=== PATIENT | male | born 1955 | race Caucasian/White ===

== ENCOUNTER 2019-02-24 21:22 | Emergency (ER) | payer OTHER, SELFPAY ==
--- OUTSIDE RECORDS SUMMARY | 2019-02-24 21:26 | XMS REPORT | Clinical Summary ---
:1955 Author Organization [facility] Address [address] [place] [address] Care Team Providers Name Role Phone Asked, No Pcp Primary Care Provider Unavailable Allergies No Known Allergies Medications Medication Sig Dispensed Refills Start Date End Date Status lisinopril Take 10 mg by 0 Active (PRINIVIL,ZESTRIL) mouth daily. 10 mg tablet rosuvastatin Take 10 mg by 0 Active (CRESTOR) 10 MG mouth daily. tablet rosuvastatin Take 10 mg by 0 06/17/2018 Discontinued (CRESTOR) 10 MG mouth daily. tablet lisinopril Take 10 mg by 0 06/17/2018 Discontinued (PRINIVIL,ZESTRIL) mouth daily. 10 mg tablet metoprolol tartrate Take 0.5 30 tablet 0 06/18/2018 07/18/2018 (LOPRESSOR) 25 mg tablets (12.5 tablet mg total) by mouth 2 (two) times a day for 30 days. clopidogrel Take 1 tablet 30 tablet 0 06/19/2018 07/19/2018 (PLAVIX) 75 mg (75 mg total) tablet by mouth daily for 30 days. aspirin 81 mg Chew 1 tablet 30 tablet 0 06/18/2018 07/18/2018 chewable tablet (81 mg total) daily for 30 days. famotidine (PEPCID) Take 1 tablet 30 tablet 0 06/18/2018 07/18/2018 40 MG tablet (40 mg total) by mouth daily for 30 days. Active Problems Problem Noted Date HLD (hyperlipidemia) 06/17/2018 HTN (hypertension) 06/17/2018 Precordial chest pain 06/16/2018 Encounters Date Type Specialty Care Team Description 06/17/2018 Surgery Procedural Koffi Trivedi CV LEFT HEART CATH Cardiology MD [place] LV GRAM WITH CORS [[id number] (CPT)] 06/16/2018 - Emergency Cardiology Rehrer, Gerard Precordial chest 06/18/2018 David DO pain (Primary Dx) Jeet Major MD 06/03/2018 Hospital Encounter Radiology Koffi Trivediness of breath MD Eloy 06/03/2018 Transcribe Orders Access Koffi Trivediness of breath MD Eloy (Primary Dx) after 02/23/2018 Social History Tobacco Use Types Packs/Day Years Used Date Former Smoker Quit: 2013 Smokeless Tobacco: Never Used Alcohol Use Drinks/Week oz/Week Comments No Alcohol Habits Answer Date Recorded How often do you have a drink containing alcohol? Never 06/16/2018 How many drinks containing alcohol do you have on a typical Not asked day when you are drinking? How often do you have six or more drinks on one occasion? Not asked Sex Assigned at Date Recorded Not on file Job Start Date Occupation Industry Not on file Not on file Not on file Travel History Travel Start Travel End No recent travel history available. Last Filed Vital Signs Vital Sign Reading Time Taken Blood Pressure 126/78 06/18/2018 7:53 AM FIRE DISPATCHER Pulse 54 06/18/2018 7:53 AM FIRE DISPATCHER Temperature 36.1 C (97 F) 06/18/2018 7:53 AM FIRE DISPATCHER Respiratory Rate 18 06/18/2018 7:53 AM FIRE DISPATCHER Oxygen Saturation 96% 06/18/2018 7:53 AM FIRE DISPATCHER Inhaled Oxygen Concentration - - Weight 118 kg (261 lb 3 oz) 06/18/2018 6:07 AM FIRE DISPATCHER Height 167.6 cm (5' 6") 06/17/2018 6:36 AM FIRE DISPATCHER Body Mass Index 42.16 06/17/2018 6:36 AM FIRE DISPATCHER Plan of Treatment Health Maintenance Due Date Last Done Comments COLONOSCOPY SCREENING 02/13/2006 SHINGLES VACCINES (#1) 02/13/2006 INFLUENZA VACCINE 02/17/2019 Procedures Procedure Name Priority Date/Time Associated Comments Diagnosis ESTIMATED GFR Routine 06/18/2018 5:07 Results for this AM FIRE DISPATCHER procedure are in the results section. BASIC METABOLIC PANEL Routine 06/18/2018 5:07 Results for this AM FIRE DISPATCHER procedure are in the results section. HC COMPLETE BLD COUNT Routine 06/18/2018 5:07 Results for this W/AUTO DIFF AM FIRE DISPATCHER procedure are in the results section. TROPONIN Timed 06/17/2018 10:35 Results for this AM FIRE DISPATCHER procedure are in the results section. CV LEFT HEART CATH LV Routine 06/17/2018 8:38 GRAM WITH CORS AM FIRE DISPATCHER ACTIVATED CLOTTING TIME Routine 06/17/2018 8:03 Results for this AM FIRE DISPATCHER procedure are in the results section. TROPONIN Routine 06/17/2018 3:40 Results for this AM FIRE DISPATCHER procedure are in the results section. ESTIMATED GFR Routine 06/17/2018 3:40 Results for this AM FIRE DISPATCHER procedure are in the results section. BASIC METABOLIC PANEL Routine 06/17/2018 3:40 Results for this AM FIRE DISPATCHER procedure are in the results section. HC COMPLETE BLD COUNT Routine 06/17/2018 3:40 Results for this W/AUTO DIFF AM FIRE DISPATCHER procedure are in the results section. THYROID STIMULATING Routine 06/17/2018 3:40 Results for this HORMONE AM FIRE DISPATCHER procedure are in the results section. HEMOGLOBIN A1C Routine 06/17/2018 3:40 Results for this AM FIRE DISPATCHER procedure are in the results section. URINE DRUGS OF ABUSE Routine 06/17/2018 3:40 Results for this SCREEN AM FIRE DISPATCHER procedure are in the results section. URINALYSIS SCREEN AND Routine 06/17/2018 3:40 Results for this MICROSCOPY, WITH REFLEX AM FIRE DISPATCHER procedure are in TO CULTURE the results section. LIPID PANEL Routine 06/17/2018 3:40 Results for this AM FIRE DISPATCHER procedure are in the results section. URINE CULTURE Routine 06/17/2018 3:40 Results for this AM FIRE DISPATCHER procedure are in the results section. ECG ED PRELIMINARY Routine 06/16/2018 11:19 Results for this INTERPRETATION PM FIRE DISPATCHER procedure are in the results section. XR CHEST 2 VW STAT 06/16/2018 10:17 Results for this PM FIRE DISPATCHER procedure are in the results section. ESTIMATED GFR STAT 06/16/2018 10:15 Results for this PM FIRE DISPATCHER procedure are in the results section. PROTHROMBIN TIME WITH STAT 06/16/2018 10:15 Results for this INR PM FIRE DISPATCHER procedure are in the results section. PARTIAL THROMBOPLASTIN STAT 06/16/2018 10:15 Results for this TIME (PTT) PM FIRE DISPATCHER procedure are in the results section. B NATRIURETIC PEPTIDE STAT 06/16/2018 10:15 Results for this PM FIRE DISPATCHER procedure are in the results section. TROPONIN STAT 06/16/2018 10:15 Results for this PM FIRE DISPATCHER procedure are in the results section. COMPREHENSIVE METABOLIC STAT 06/16/2018 10:15 Results for this PANEL PM FIRE DISPATCHER procedure are in the results section. HC COMPLETE BLD COUNT STAT 06/16/2018 10:15 Results for this W/AUTO DIFF PM FIRE DISPATCHER procedure are in the results section. ECG 12-LEAD STAT 06/16/2018 9:58 Results for this PM FIRE DISPATCHER procedure are in the results section. XR CHEST 2 VW Routine 06/03/2018 3:51 Shortness of Results for this PM FIRE DISPATCHER breath procedure are in the results section. after 02/23/2018 Results Estimated GFR (06/18/2018 5:07 AM FIRE DISPATCHER)Only the most recent of3 resultswithin the time period is included. Pathologist [facility] Estimated GFR >=90 mL/min/1.73 [facility] Comment: m2 HOSPITAL CatergoryUnitsInterpretation G1 >=90 Normal or high G2 60-89Mildly decreased [id number] to moderately decreased B2x60-35Jomifahwfx to severely decreased G4 15-29Severely decreased G5 <15Kidney failure The eGFR was calculated using the Chronic Kidney Disease Epidemiology Collaboration (CKD-EPI) equation. Interpretation is based on recommendations of the National Kidney Foundation-Kidney Disease Outcomes Quality Initiative (NKF-KDOQI) published in 2014. Specimen Plasma specimen Performing Organization Address City/State/Zipcode Phone Number [facility] DEPARTMENT OF PATHOLOGY AND [address] [place] [address] GENOMIC MEDICINE [address] [address] CBC with platelet and differential (06/18/2018 5:07 AM FIRE DISPATCHER)Only the most recent of3 resultswithin the time period is included. Pathologist [facility] WBC 5.62 4.50 - 11.00 [facility] RBC 3.65 (L) 4.40 - 6.00 [facility] HGB 12.0 (L) 14.0 - 18.0 [facility] gdL [facility] HCT 35.4 (L) 41.0 - 51.0 % [facility] MCV 97.0 82.0 - 100.0 [facility] MCH 32.9 27.0 - 34.0 pg [facility] MCHC 33.9 31.0 - 37.0 [facility] gdL [facility] RDW - SD 46.4 37.0 - 55.0 [facility] MPV 10.6 8.8 - 13.2 fL [facility] Platelet count 159 150 - 400 k/uL [facility] Nucleated RBC 0.00 /100 WBC [facility] Neutrophils 66.1 39.0 - 69.0 % [facility] Lymphocytes 24.0 (L) 25.0 - 45.0 % [facility] Monocytes 6.8 0.0 - 10.0 % [facility] Eosinophils 2.0 0.0 - 5.0 % [facility] Basophils 0.7 0.0 - 1.0 % [facility] Immature granulocytes 0.4Comment: 0.0 - 1.0 % [facility] "[facility] granulocytes" (promyelocytes , myelocytes, metamyelocytes ) Specimen Blood Performing Organization Address City/[facility] Hospital[facility] Phone Number [facility] DEPARTMENT OF PATHOLOGY AND [address] [place] [address] Basic metabolic panel (06/18/2018 5:07 AM FIRE DISPATCHER)Only the most recent of2 resultswithin the time period is included. [facility] Sodium 141 135 - 148 mEq/L [facility] Potassium 4.2 3.5 - 5.0 mEq/L [facility] Chloride 103 98 - 112 mEq/L [facility] CO2 25 24 - 31 mEq/L [facility] Anion gap 13@ANIO 7 - 15 mEq/L [facility] BUN 16 8 - 23 mg/dL [facility] Creatinine 0.88 0.70 - 1.20 mg/dL [facility] Glucose 98 65 - 99 mg/dL [facility] Calcium 9.3 8.8 - 10.2 mg/dL [facility] Specimen Plasma specimen Performing Organization Address City/[facility] Hospitalcode Phone Number [facility] DEPARTMENT OF PATHOLOGY AND [address] [place] [address] Troponin (06/17/2018 10:35 AM FIRE DISPATCHER)Only the most recent of3 resultswithin the time period is included. [facility] Troponin <0.30 0.00 - 0.30 [facility] Comment: ng/mL HOSPITAL 0.30 - 1.49 ng/mlMay indicate increased risk of acute coronary syndrome. >=1.5 ng/mlConsistent with acute myocardial infarction. The diagnostic value of a single normal or non-diagnostic result is questionable.Serial samples at 2-6 hour intervals are required to rule out acute myocardial injury. Specimen Plasma specimen Performing Organization Address City/[facility]/Zipcode Phone Number [facility] DEPARTMENT OF PATHOLOGY AND [address] [place] [phone] [address] Cv bean sprout laborer procedure (06/17/2018 8:38 AM FIRE DISPATCHER) Specimen Narrative Performed At Performing Organization Address [facility]/Zipcode Phone Number [facility] [address] [place] [phone] Activated clotting time (06/17/2018 8:03 AM FIRE DISPATCHER) [facility] Activated clotting 320 (H) 96 - 152 sec [facility] Comment: HOSPITAL Meter ID: [id number] Lead Person: Antonieta Mitchell Specimen Performing Organization Address [facility] Hospitalcoga Phone Number [facility] DEPARTMENT OF PATHOLOGY AND [address] [place] [phone] [address] Urinalysis screen and microscopy, with reflex to culture (06/17/2018 3:40 AM FIRE DISPATCHER) Specimen site Clean catch [facility] Color, UA Yellow [facility] Appearance, UA Clear [facility] Specific gravity, UA 1.023 1.001 - 1.035 [facility] pH, UA 5.0 5.0 - 8.5 [facility] Protein, UA 1+ (A) Negative [facility] Glucose, UA Negative Negative [facility] Ketones, UA Negative Negative [facility] Bilirubin, UA Negative Negative [facility] Blood, UA Negative Negative [facility] Nitrite, UA Negative Negative [facility] Urobilinogen, UA <2.0 <2.0 [facility] Leukocyte esterase, Negative Negative [facility] Epithelial cells, UA 2 /HPF [facility] WBC, UA 3 (H) 0 - 1 /HPF [facility] RBC, UA 2 0 - 5 /HPF [facility] Bacteria, UA None seen None seen [facility] Yeast, UA None seen [facility] Yeast with None seen [facility] pseudohyphae, UA HOSPITAL Specimen Urine Performing Organization Address City/State/Zipcode Phone Number [facility] DEPARTMENT OF PATHOLOGY AND [address] [place] [phone] [place] [phone] Urine drugs of abuse screen (06/17/2018 3:40 AM FIRE DISPATCHER) Amphetamine screen, Negative [facility] urine [facility] Barbiturate screen, Negative [facility] urine [facility] Benzodiazepine Negative [facility] screen, urine [facility] Cannabinoid screen, Negative [facility] urine [facility] Cocaine screen, urine Negative [facility] Methadone metabolite Negative [facility] (EDDP), urine [facility] Opiates screen, urine Negative [facility] Oxycodone screen, Negative [facility] urine [facility] Phencyclidine screen, Negative [facility] urine [facility] Tricyclic screen, Negative [facility] urine Comment: CONFUCIANISM Drug screen minimum concentration of [facility] Hanrozlxddan0375 ng/mL Barbiturates 200 ng/mL Qlcuhwzbwlziecd348 ng/mL Nqlwxor509 ng/mL Fdqrzbpne193 ng/mL Sldvihy358 ng/mL Ukhsgcliw815 ng/mL Phencyclidine 25 ng/mL Oquqivriauih84 ng/mL Wgyyvfppso8354 ng/mL Negative test results indicates presumptive evidence of lack of clinically significant drug concentration in this urine specimen. Positive test results are presumptive evidence of clinically significant drug concentration in this urine specimen. Testing performed for medical purposes only. Specimen Urine Performing Organization Address [facility] Hospital[facility] Phone Number [facility] DEPARTMENT OF PATHOLOGY AND [address] [place] [phone] [place] [phone] Urine culture (06/17/2018 3:40 AM FIRE DISPATCHER) Urine culture SEE COMMENTComment: [facility] Bacteriuria screen HOSPITAL negative. Specimen Performing Organization Address City/[facility]/Zipcode Phone Number [facility] DEPARTMENT OF PATHOLOGY AND [address] [place] [phone] [place] [phone] Thyroid stimulating hormone (06/17/2018 3:40 AM FIRE DISPATCHER) TSH 2.86 0.27 - 4.20 uIU/mL [facility] Specimen Plasma specimen Performing Organization Address City/[facility]/Zipcode Phone Number [facility] DEPARTMENT OF PATHOLOGY AND [address] [place] [phone] [address] Hemoglobin A1c (06/17/2018 3:40 AM FIRE DISPATCHER) Hemoglobin A1C 5.0 4.0 - 5.6 % [facility] Comment: HOSPITAL HbA1c cutoffs for diagnosing diabetes: 4.0% - 5.6%=normal 5.7% - 6.4%=increased risk for diabetes (prediabetes) >=6.5%=diabetes Goals for glycemic control (ADA 2016) < 7.0%Target for non adults with diabetes. More or less stringent targets may be appropriate for individual patients. <7.5% Target for Children and adolescents with type 1 diabetes. Specimen Blood Performing Organization Address City/State/Zipcode Phone Number [facility] DEPARTMENT OF PATHOLOGY AND [address] [place] [phone] [address] Lipid panel (06/17/2018 3:40 AM FIRE DISPATCHER) Cholesterol 162 <200 mg/dL [facility] Triglycerides 541 (H) <150 mg/dL [facility] HDL cholesterol 28 (L) >40 mg/dL [facility] LDL cholesterol 72Comment: Result <100 mg/dL [facility] obtained by direct [employer] LDL measurement [facility] Lipid panel [facility] interpretation Comment: CON[employer]ISM Total Cholesterol (mg/dL) [facility] <200 Desirable 217-436Tsbtzkcqdt-yqox >=240High Triglycerides (mg/dL) <150 Normal 045-202Qseqbhvdyn-gdhy 200-499High >=500Very high HDL Cholesterol (mg/dL) <40Low (male) <40Low (female) LDL Cholesterol (mg/dL) <100 Optimal 100-129Near or above optimal 745-622Qjwluqxqvd-dyjc 160-189High >=190Very high Risk Catergories that modify LDL goals. Risk CatergoriesLDL goal (mg/dL) CHD and CHD risk equivalent<100 (10-year risk >20%) Multiple (2+) risk factors <130 (10-year risk=<20%) 0-1 risk factors <160 (<10-year risk) Defining levels of lipids in metabolic syndrome Triglycerides>=150 mg/dL HDL Cholesterol Men<40 mg/dL Women<40 mg/dL Non-HDL cholesterol is a second target for therapy in persons with high triglycerides (>=200 mg/dL) Specimen Plasma specimen Performing Organization Address City/[facility]/Zipcode Phone Number [facility] DEPARTMENT OF PATHOLOGY AND [address] [place] [address] GENOMIC MEDICINE [facility] [address] [place] [address] ECG ED Preliminary Interpretation - Not an Order (06/16/2018 11:19 PM FIRE DISPATCHER) Narrative Performed At Gerard Crowder DO 06/17/2018 12:53 AM ECG ED Preliminary Interpretation - Not an Order Performed by: Gerard Crowder DO Authorized by: Gerard Crowder DO ECG reviewed by ED Physician in the absence of a car conditioner: yes Previous ECG: Previous ECG:Compared to current Comparison ECG info:Changes since EKG done July 2014. Similarity:Changes noted Interpretation: Interpretation: abnormal Rate: ECG rate:72 ECG rate assessment: normal Rhythm: Rhythm: sinus rhythm QRS: QRS axis:Normal QRS intervals:Wide Conduction: Conduction: abnormal Abnormal conduction: complete RBBB, LAFB and bifascicular block ST segments: ST segments:Normal T waves: T waves: non-specific Q waves: Q waves:V1 XR Chest 2 Vw (06/16/2018 10:17 PM FIRE DISPATCHER)Only the most recent of2 resultswithin the time period is included. Specimen Narrative Performed At EXAMINATION:XR CHEST 2 VW [facility] CLINICAL HISTORY:Chest pain or SOBpleurisy or effusion suspected COMPARISON:June 03, 2018 IMPRESSION: 1.Heart size within normal limits. 2.There is some volume loss of the lung bases. 3.No consolidation or effusion is seen. [id number] Procedure Note [facility], Radiology Results Incoming - 06/16/2018 10:23 PM FIRE DISPATCHER EXAMINATION: XR CHEST 2 VW CLINICAL HISTORY: Chest pain or SOB pleurisy or effusion suspected COMPARISON: June 03, 2018 IMPRESSION: 1. Heart size within normal limits. 2. There is some volume loss of the lung bases. 3. No consolidation or effusion is seen. [id number] Performing Organization Address City/[facility]/Zipcode Phone Number [facility] [address] [place] [address] Partial thromboplastin time, activated (06/16/2018 10:15 PM FIRE DISPATCHER) Pathologist [facility] PTT 30.6 23.0 - 36.0 [facility] Comment: [facility] PTT therapeutic range for unfractionated heparin is 61.0-112.0 seconds which corresponds to Anti-Xa 0.3-0.7 U/ml. Specimen Blood Performing Organization Address City/State/Zipcode Phone Number [facility] DEPARTMENT OF PATHOLOGY AND [address] [place] [phone] Prothrombin time with INR (06/16/2018 10:15 PM FIRE DISPATCHER) Pathologist [facility] Prothrombin time 12.6 11.5 - 14.5 [facility] INR 1.0 [facility] Comment: CONFUCIANISM [facility] International Normalized Ratio (INR) is a therapeutic HOSPITAL monitoring tool for patients who are stable on oral anticoagulant therapy. An INR of 2.0-3.0 is suggested for deep vein thrombosis/pulmonary embolism. Specimen Blood Performing Organization Address City/[facility] Phone Number [facility] DEPARTMENT OF PATHOLOGY AND [address] [place] [address] B natriuretic peptide (06/16/2018 10:15 PM FIRE DISPATCHER) Pathologist [facility] BNP 18 0 - 100 pg/mL [facility] Specimen Blood Performing Organization Address City/[facility] Phone Number [facility] DEPARTMENT OF PATHOLOGY AND [address] [place] [phone] Comprehensive metabolic panel (06/16/2018 10:15 PM FIRE DISPATCHER) [facility] Sodium 144 135 - 148 [facility] mEq/L [facility] Potassium 4.0 3.5 - 5.0 [facility] mEq/L [facility] Chloride 104 98 - 112 mEq/L [facility] CO2 29 24 - 31 mEq/L [facility] Anion gap 11@ANIO 7 - 15 mEq/L [facility] BUN 19 8 - 23 mg/dL [facility] Creatinine 1.05 0.70 - 1.20 [facility] mg/dL HOSPITAL Glucose 92 65 - 99 mg/dL [facility] Calcium 9.9 8.8 - 10.2 [facility] mg/dL HOSPITAL Protein 7.5 6.3 - 8.3 g/dL [facility] Comment: HOSPITAL 4.6-7.0 g/dL 1 week 4.4-7.6 g/dL 7 months-1year5.1-7.3 g/dL 1-2 years5.6-7.5 g/dL >3 years6.0-8.0 g/dL 18-150 6.3-8.3 g/dL Albumin 3.6 3.5 - 5.0 g/dL [facility] A/G ratio 0.9 0.7 - 3.8 [facility] Alkaline phosphatase 55 40 - 129 U/L [facility] AST 25 10 - 50 U/L [facility] ALT 29 5 - 50 U/L [facility] Total bilirubin 0.4 0.0 - 1.2 [facility] mg/dL [facility] Specimen Plasma specimen Performing Organization Address City/State/[facility] Hospitalcode Phone Number [facility] DEPARTMENT OF PATHOLOGY AND [address] [place] [address] GENOMIC MEDICINE [facility] [address] [place] [address] ECG 12 lead (06/16/2018 9:58 PM FIRE DISPATCHER) Ventricular rate 72 [facility] Atrial rate 72 [facility] MD interval 166 [facility] QRSD interval 144 [facility] QT interval 430 [facility] QTC interval 470 [facility] P axis 1 47 [facility] QRS axis 1 -69 [facility] T wave axis 15 [facility] EKG impression Normal sinus rhythm-Right bundle branch block-Left anterior fascicular block-^^^ Bifascicular block ^^^-Inferior infarct , age undetermined- Abnormal ECG-In automated comparison with ECG of 25-JUL-2014 0 [facility] MUSE 7:43,-(RBBB and left anterior fascicular block) is now present-Inferior infarct is now present- Specimen Narrative Performed At Performing Organization Address City/State/[facility] Hospitalcode Phone Number [facility] [address] [place] [address] after 02/23/2018 Insurance Payer Benefit Plan / Subscriber ID Effective Dates Phone Address Type [facility] [employer] [facility] xxxxxxxxxxxx 2017-[employer] CHOICE EXCHANGE EXCHANGE t [employer] Advance Directives Patient has advance care planning documents on file. For more information, please contact:Barrett Ely[address] [place] [phone]
--- NOTE | 2019-02-24 21:55 | ER ---
Nurse's Notes [facility] Name: Duke Leon Age: 64 yrs Sex: Male : 1955 Arrival Date: 02/24/2019 Time: 21:26 Bed 23 Private MD: Diagnosis: Zoster [herpes zoster] Presentation: 02/24 21:30 Presenting complaint: Patient states: Rash to left arm, for 3 days. Transition of care: aj patient was not received from another setting of care. Onset of symptoms was February 21, 2019. Risk Assessment: Do you want to hurt yourself or someone else? Patient reports no desire to harm self or others. Initial Sepsis Screen: Does the patient meet any 2 criteria? No. Patient's initial sepsis screen is negative. Does the patient have a suspected source of infection? No. Patient's initial sepsis screen is negative. Care prior to arrival: None. 21:30 Method Of Arrival: Ambulatory 21:30 Acuity: NATALIE 4 aj Triage Assessment: 21:31 General: Appears in no apparent distress. comfortable, Behavior is calm, cooperative, aj appropriate for age. Pain: Complains of pain in left arm. Neuro: Level of Consciousness is awake, alert, obeys commands, Oriented to person, place, time, situation, Appropriate for age. Respiratory: Airway is patent Respiratory effort is even, unlabored, Respiratory pattern is regular, symmetrical. Derm: Skin is intact, is healthy with good turgor, Skin is pink, warm \T\ dry. normal, Rash noted that is vesicular, on left arm. Historical: - Allergies: 21:31 No Known Allergies; aj - Immunization history:: Adult Immunizations up to date. - Social history:: Smoking status: Patient/guardian denies using tobacco. - Ebola Screening: : No symptoms or risks identified at this time. Screenin:40 Abuse screen: Denies threats or abuse. Denies injuries from another. Nutritional ca1 screening: No deficits noted. Tuberculosis screening: No symptoms or risk factors identified. Fall Risk None identified. Assessment: 21:40 General: Appears in no apparent distress. comfortable, Behavior is calm, cooperative, ca1 appropriate for age. Pain: Complains of pain in left arm Pain does not radiate. Pain currently is 8 out of 10 on a pain scale. Quality of pain is described as burning. Neuro: Level of Consciousness is awake, alert, obeys commands, Oriented to person, place, time, situation, Appropriate for age. Derm: Skin is intact, is healthy with good turgor, Skin is pink, warm \T\ dry. Derm: Rash noted that is macular. Musculoskeletal: Circulation, motion, and sensation intact. Capillary refill < 3 seconds, Range of motion: intact in all extremities. Vital Signs: 21:31 BP 142 / 68; Pulse 86; Resp 16; Temp 97.9; Pulse Ox 96% on R/A; Weight 124.74 kg; aj Height 5 ft. 6 in. (167.64 cm); 21:31 Body Mass Index 44.39 (124.74 kg, 167.64 cm) aj ED Course: 21:26 Patient arrived in ED. am2 21:31 Triage completed. aj 21:31 Arm band placed on left wrist. Patient placed in an exam room. aj 21:37 Carrie Champagne RN is Primary Nurse. ca1 21:38 Mario Tinajero MD is Attending Physician. ps1 21:40 Patient has correct armband on for positive identification. Call light in reach. Side ca1 rails up X 1. Pulse ox on. NIBP on. Warm blanket given. 21:40 No provider procedures requiring assistance completed. ca1 22:15 Patient did not have IV access during this emergency room visit. ca1 Administered Medications: 22:14 Drug: [place] 10 mg-325 mg 1 tabs {Note: RASS - 0.} Route: PO; ca1 22:14 Follow up: Response: Medication administered at discharge.; RASS: Alert and Calm (0) ca1 Outcome: 21:54 Discharge ordered by . ps1 22:15 Discharged to home ambulatory, with significant other. ca1 22:15 Condition: stable 22:15 Discharge instructions given to patient, Instructed on discharge instructions, follow up and referral plans. medication usage, Demonstrated understanding of instructions, follow-up care, medications, Prescriptions given X 3. 22:17 Patient left the ED. ca1 Signatures: Yumiko Caro, RN Yumiko Carlisle am2 Mario Tinajero MD MD ps1 Carrie Champagne RN RN ca1
--- NOTE | 2019-02-24 21:55 | EDPHYS ---
Physician Documentation [facility] Name: Duke Leon Age: 64 yrs Sex: Male : 1955 Arrival Date: 02/24/2019 Time: 21:26 Bed 23 Private MD: ED Physician Mario Tinajero HPI: 02/24 21:49 This 64 yrs old Male presents to ER via Ambulatory with complaints of Rash - ps1 on arm. 21:49 patient has an obvious shingles rash on left arms started a couple of days ago. Also ps1 states that he has pain in his left ear. Pain is rated as moderate. Not immunocompromised otherwise. No fever. No change in vision or obvious lesions on the face, neck, or ear. Rash is vesicular and following a dermatomal pattern over the shoulder and left arm. . Historical: - Allergies: 21:31 No Known Allergies; aj - Immunization history:: Adult Immunizations up to date. - Social history:: Smoking status: Patient/guardian denies using tobacco. - Ebola Screening: : No symptoms or risks identified at this time. ROS: 21:49 Constitutional: Negative for fever, chills, and weight loss, Eyes: Negative for injury, ps1 pain, redness, and discharge, Cardiovascular: Negative for chest pain, palpitations, and edema, Respiratory: Negative for shortness of breath, cough, wheezing, and pleuritic chest pain, Abdomen/GI: Negative for abdominal pain, nausea, vomiting, diarrhea, and constipation, MS/Extremity: Negative for injury and deformity, Neuro: Negative for headache, weakness, numbness, tingling, and seizure. 21:49 ENT: Positive for ear pain. 21:49 Skin: Positive for rash. Exam: 21:49 Constitutional: This is a well developed, well nourished patient who is awake, alert, ps1 and in no acute distress. Head/Face: Normocephalic, atraumatic. Eyes: Pupils equal round and reactive to light, extra-ocular motions intact. Lids and lashes normal. Conjunctiva and sclera are non-icteric and not injected. ENT: Nares patent. No nasal discharge, no septal abnormalities noted. Tympanic membranes are normal and external auditory canals are clear. Oropharynx with no redness, swelling, or masses, exudates, or evidence of obstruction, uvula midline. Mucous membranes moist. Cardiovascular: Regular rate and rhythm. No gallops, murmurs, or rubs. Normal PMI, no JVD. No pulse deficits. Respiratory: Lungs have equal breath sounds bilaterally, clear to auscultation and percussion. No rales, rhonchi or wheezes noted. No increased work of breathing, no retractions or nasal flaring. Abdomen/GI: Soft, non-tender, with normal bowel sounds. No distension or tympany. No guarding or rebound. No evidence of tenderness throughout. MS/ Extremity: Pulses equal, no cyanosis. Neurovascular intact. Full, normal range of motion. 21:49 Skin: Appearance: normal except for affected area, rash a moderate rash is noted, zoster, on the left arm, No lesions on neck or obvious on visualization of ear canal. . Vital Signs: 21:31 BP 142 / 68; Pulse 86; Resp 16; Temp 97.9; Pulse Ox 96% on R/A; Weight 124.74 kg; aj Height 5 ft. 6 in. (167.64 cm); 21:31 Body Mass Index 44.39 (124.74 kg, 167.64 cm) aj MDM: 21:46 Patient medically screened. ps1 21:49 Data reviewed: vital signs, nurses notes, and as a result, I will discharge patient. ps1 Counseling: I had a detailed discussion with the patient and/or guardian regarding: the historical points, exam findings, and any diagnostic results supporting the discharge/admit diagnosis, the need for outpatient follow up, to return to the emergency department if symptoms worsen or persist or if there are any questions or concerns that arise at home. Administered Medications: 22:14 Drug: [place] 10 mg-325 mg 1 tabs {Note: RASS - 0.} Route: PO; ca1 22:14 Follow up: Response: Medication administered at discharge.; RASS: Alert and Calm (0) ca1 Disposition: 02/24/19 21:54 Discharged to Home. Impression: Zoster [herpes zoster]. - Condition is Stable. - Discharge Instructions: Shingles. - Prescriptions for lidocaine 5 % Topical adhesive patch,medicated - apply 1 patch by TRANSDERMAL route once daily; 5 Each. Tylenol- Codeine #3 300-30 mg Oral Tablet - take 2 tablet by ORAL route every 6 hours As needed; 30 tablet. Zofran 4 mg Oral Tablet - take 1 tablet by ORAL route every 12 hours As needed; 20 tablet. Acyclovir 800 mg Oral Tablet - take 1 tablet by ORAL route 5 times per day for 10 days; 50 tablet. - Medication Reconciliation Form, Thank You Letter, Antibiotic Education, Prescription Opioid Use form. - Follow up: Emergency Department; When: As needed; Reason: Fever > 102 F, Worsening of condition. Follow up: Private Physician; When: 48 Hours; Reason: Continuance of care, Re-evaluation by your physician. - Problem is new. - Symptoms are unchanged. Signatures: Yumiko Caro RN RN aj Mario Tinajero MD MD ps1 Carrie Champagne RN RN ca1 Corrections: (The following items were deleted from the chart) 22:17 21:54 02/24/2019 21:54 Discharged to Home. Impression: Zoster [herpes zoster]. ca1 Condition is Stable. Forms are Medication Reconciliation Form, Thank You Letter, Antibiotic Education, Prescription Opioid Use. Follow up: Emergency Department; When: As needed; Reason: Fever > 102 F, Worsening of condition. Follow up: Private Physician; When: 48 Hours; Reason: Continuance of care, Re-evaluation by your physician. Problem is new. Symptoms are unchanged. ps1
[2019-02-24] MEDS ORDERED: HYDROCODONE/APAP 10/325 TAB ONE (22:11)
[2019-02-24 22:50] VITALS: BP 142/68; TEMP 97.9; O2SAT 96
== END 2019-02-24 22:17 | disposition home or self-care (01) ==
LOC: ER 21:22
DX: B02.9 Zoster without complications (principal)
CPT/HCPCS: 99283

== ENCOUNTER 2019-03-07 13:22 | Emergency (ER) | payer OTHER, SELFPAY ==
--- OUTSIDE RECORDS SUMMARY | 2019-03-07 13:25 | XMS REPORT | Clinical Summary ---
:1955 Author Organization [facility] Address [address] [place] [address] Care Team Providers Name Role Phone Asked, No Pcp Primary Care Provider Unavailable Allergies No Known Allergies Medications Medication Sig Dispensed Refills Start Date End Date Status lisinopril Take 10 mg by 0 Active (PRINIVIL,ZESTRIL) mouth daily. 10 mg tablet rosuvastatin Take 10 mg by 0 Active (CRESTOR) 10 MG mouth daily. tablet rosuvastatin Take 10 mg by 0 Discontinued (CRESTOR) 10 MG mouth daily. 8 (Patient tablet Discharge) lisinopril Take 10 mg by 0 Discontinued (PRINIVIL,ZESTRIL) mouth daily. 8 (Patient 10 mg tablet Discharge) metoprolol Take 0.5 30 tablet 0 06/18/2018 tartrate tablets (12.5 8 (LOPRESSOR) 25 mg mg total) by tablet mouth 2 (two) times a day for 30 days. clopidogrel Take 1 tablet 30 tablet 0 06/19/2018 (PLAVIX) 75 mg (75 mg total) 8 tablet by mouth daily for 30 days. aspirin 81 mg Chew 1 tablet 30 tablet 0 06/18/2018 chewable tablet (81 mg total) 8 daily for 30 days. famotidine Take 1 tablet 30 tablet 0 06/18/2018 (PEPCID) 40 MG (40 mg total) 8 tablet by mouth daily for 30 days. Active Problems Problem Noted Date HLD (hyperlipidemia) 06/17/2018 HTN (hypertension) 06/17/2018 Precordial chest pain 06/16/2018 Encounters Date Type Specialty Care Team Description 06/17/2018 Surgery Procedural Koffi Trivedi CV LEFT HEART CATH Cardiology MD Eloy LV GRAM WITH CORS [[id number] (CPT)] 06/16/2018 - Emergency Cardiology Rehrer, Gerard Precordial chest 06/18/2018 DO David pain (Primary Dx) Jeet Major MD 06/03/2018 Hospital Encounter Radiology Koffi Trivediness of breath MD Eloy 06/03/2018 Transcribe Orders Access Koffi Trivedi Shortness of breath MD Eloy (Primary Dx) after 03/06/2018 Social History Tobacco Use Types Packs/Day Years [...] Vital Signs Vital Sign Reading Time Taken Comments Blood Pressure 126/78 06/18/2018 7:53 AM HOUSING PROPERTY MANAGER Pulse 54 06/18/2018 7:53 AM HOUSING PROPERTY MANAGER Temperature 36.1 C (97 F) 06/18/2018 7:53 AM HOUSING PROPERTY MANAGER Respiratory Rate 18 06/18/2018 7:53 AM HOUSING PROPERTY MANAGER Oxygen Saturation 96% 06/18/2018 7:53 AM HOUSING PROPERTY MANAGER Inhaled Oxygen Concentration - - Weight 118 kg (261 lb 3 oz) 06/18/2018 6:07 AM HOUSING PROPERTY MANAGER Height 167.6 cm (5' 6") 06/17/2018 6:36 AM HOUSING PROPERTY MANAGER Body Mass Index 42.16 06/17/2018 6:36 AM HOUSING PROPERTY MANAGER Plan of Treatment Health Maintenance Due Date Last Done Comments COLONOSCOPY SCREENING 02/13/2006 SHINGLES VACCINES (#1) 02/13/2006 INFLUENZA VACCINE 02/17/2019 Procedures Procedure Name Priority Date/Time Associated Comments Diagnosis ESTIMATED GFR Routine 06/18/2018 5:07 Results for this AM HOUSING PROPERTY MANAGER procedure are in the results section. BASIC METABOLIC PANEL Routine 06/18/2018 5:07 Results for this AM HOUSING PROPERTY MANAGER procedure are in the results section. HC COMPLETE BLD COUNT Routine 06/18/2018 5:07 Results for this W/AUTO DIFF AM HOUSING PROPERTY MANAGER procedure are in the results section. TROPONIN Timed 06/17/2018 10:35 Results for this AM HOUSING PROPERTY MANAGER procedure are in the results section. CV LEFT HEART CATH LV Routine 06/17/2018 8:38 GRAM WITH CORS AM HOUSING PROPERTY MANAGER ACTIVATED CLOTTING TIME Routine 06/17/2018 8:03 Results for this AM HOUSING PROPERTY MANAGER procedure are in the results section. TROPONIN Routine 06/17/2018 3:40 Results for this AM HOUSING PROPERTY MANAGER procedure are in the results section. ESTIMATED GFR Routine 06/17/2018 3:40 Results for this AM HOUSING PROPERTY MANAGER procedure are in the results section. BASIC METABOLIC PANEL Routine 06/17/2018 3:40 Results for this AM HOUSING PROPERTY MANAGER procedure are in the results section. HC COMPLETE BLD COUNT Routine 06/17/2018 3:40 Results for this W/AUTO DIFF AM HOUSING PROPERTY MANAGER procedure are in the results section. THYROID STIMULATING Routine 06/17/2018 3:40 Results for this HORMONE AM HOUSING PROPERTY MANAGER procedure are in the results section. HEMOGLOBIN A1C Routine 06/17/2018 3:40 Results for this AM HOUSING PROPERTY MANAGER procedure are in the results section. URINE DRUGS OF ABUSE Routine 06/17/2018 3:40 Results for this SCREEN AM HOUSING PROPERTY MANAGER procedure are in the results section. URINALYSIS SCREEN AND Routine 06/17/2018 3:40 Results for this MICROSCOPY, WITH REFLEX AM HOUSING PROPERTY MANAGER procedure are in TO CULTURE the results section. LIPID PANEL Routine 06/17/2018 3:40 Results for this AM HOUSING PROPERTY MANAGER procedure are in the results section. URINE CULTURE Routine 06/17/2018 3:40 Results for this AM HOUSING PROPERTY MANAGER procedure are in the results section. ECG ED PRELIMINARY Routine 06/16/2018 11:19 Results for this INTERPRETATION PM HOUSING PROPERTY MANAGER procedure are in the results section. XR CHEST 2 VW STAT 06/16/2018 10:17 Results for this PM HOUSING PROPERTY MANAGER procedure are in the results section. ESTIMATED GFR STAT 06/16/2018 10:15 Results for this PM HOUSING PROPERTY MANAGER procedure are in the results section. PROTHROMBIN TIME WITH STAT 06/16/2018 10:15 Results for this INR PM HOUSING PROPERTY MANAGER procedure are in the results section. PARTIAL THROMBOPLASTIN STAT 06/16/2018 10:15 Results for this TIME (PTT) PM HOUSING PROPERTY MANAGER procedure are in the results section. B NATRIURETIC PEPTIDE STAT 06/16/2018 10:15 Results for this PM HOUSING PROPERTY MANAGER procedure are in the results section. TROPONIN STAT 06/16/2018 10:15 Results for this PM HOUSING PROPERTY MANAGER procedure are in the results section. COMPREHENSIVE METABOLIC STAT 06/16/2018 10:15 Results for this PANEL PM HOUSING PROPERTY MANAGER procedure are in the results section. HC COMPLETE BLD COUNT STAT 06/16/2018 10:15 Results for this W/AUTO DIFF PM HOUSING PROPERTY MANAGER procedure are in the results section. ECG 12-LEAD STAT 06/16/2018 9:58 Results for this PM HOUSING PROPERTY MANAGER procedure are in the results section. XR CHEST 2 VW Routine 06/03/2018 3:51 Shortness of Results for this PM HOUSING PROPERTY MANAGER breath procedure are in the results section. after 03/06/2018 Results Estimated GFR (06/18/2018 5:07 AM HOUSING PROPERTY MANAGER)Only the most recent of3 resultswithin the time period is included. [facility] Estimated GFR >=90 mL/min/1.73 [facility] Comment: m2 HOSPITAL CatergoryUnitsInterpretation G1 >=90 Normal or high G2 60-89Mildly decreased [id number] to moderately decreased W9c50-63Rrikuzvdfu to severely decreased G4 15-29Severely decreased G5 <15Kidney failure The eGFR was calculated using the Chronic Kidney Disease Epidemiology Collaboration (CKD-EPI) equation. Interpretation is based on recommendations of the National Kidney Foundation-Kidney Disease Outcomes Quality Initiative (NKF-KDOQI) published in 2014. Specimen Plasma specimen Performing Organization Address City/State/Zipcode Phone Number [facility] DEPARTMENT OF PATHOLOGY AND [address] [place] [address] GENOMIC MED[address] [address] CBC with platelet and differential (06/18/2018 5:07 AM HOUSING PROPERTY MANAGER)Only the most recent of3 resultswithin the time period is included. [facility] WBC 5.62 4.50 - 11.00 [facility] k/[facility] RBC 3.65 (L) 4.40 - 6.00 [facility] HGB 12.0 (L) 14.0 - 18.0 [facility] g/dL [facility] HCT 35.4 (L) 41.0 - 51.0 % [facility] MCV 97.0 82.0 - 100.0 [facility] MCH 32.9 27.0 - 34.0 pg [facility] MCHC 33.9 31.0 - 37.0 [facility] g/dL [facility] RDW - SD 46.4 37.0 - 55.0 fL [facility] MPV 10.6 8.8 - 13.2 fL [facility] Platelet count 159 150 - 400 k/uL [facility] Nucleated RBC 0.00 /100 WBC [facility] Neutrophils 66.1 39.0 - 69.0 % [facility] Lymphocytes 24.0 (L) 25.0 - 45.0 % [facility] Monocytes 6.8 0.0 - 10.0 % [facility] Eosinophils 2.0 0.0 - 5.0 % [facility] Basophils 0.7 0.0 - 1.0 % [facility] Immature granulocytes 0.4Comment: 0.0 - 1.0 % [facility] granulocytes" (promyelocytes , myelocytes, metamyelocytes ) Specimen Blood Performing Organization Address City/[facility] Phone Number [facility] DEPARTMENT OF PATHOLOGY AND [address] [place] [address] Basic metabolic panel (06/18/2018 5:07 AM HOUSING PROPERTY MANAGER)Only the most recent of2 resultswithin the time period is included. Pathologist [facility] Sodium 141 135 - 148 mEq/L [facility] Potassium 4.2 3.5 - 5.0 mEq/L [facility] Chloride 103 98 - 112 mEq/L [facility] CO2 25 24 - 31 mEq/L [facility] Anion gap 13@ANIO 7 - 15 mEq/L [facility] BUN 16 8 - 23 mg/dL [facility] Creatinine 0.88 0.70 - 1.20 mg/dL [facility] Glucose 98 65 - 99 mg/dL [facility] Calcium 9.3 8.8 - 10.2 mg/dL [facility] Specimen Plasma specimen Performing Organization Address City/[facility] Centercode Phone Number [facility] DEPARTMENT OF PATHOLOGY AND [address] [place] [address] Troponin (06/17/2018 10:35 AM HOUSING PROPERTY MANAGER)Only the most recent of3 resultswithin the time period is included. Troponin <0.30 0.00 - 0.30 [facility] Comment: ng/mL HOSPITAL 0.30 - 1.49 ng/mlMay indicate increased risk of acute coronary syndrome. >=1.5 ng/mlConsistent with acute myocardial infarction. The diagnostic value of a single normal or non-diagnostic result is questionable.Serial samples at 2-6 hour intervals are required to rule out acute myocardial injury. Specimen Plasma specimen Performing Organization Address City/State/Zipcode Phone Number [facility] DEPARTMENT OF PATHOLOGY AND [address] [place] [address] [address] Cv lab rep procedure (06/17/2018 8:38 AM HOUSING PROPERTY MANAGER) Specimen Narrative Performed At Performing Organization Address [facility]/Zipcode Phone Number [facility] [address] [place] [address] Activated clotting time (06/17/2018 8:03 AM HOUSING PROPERTY MANAGER) [facility] Activated clotting 320 (H) 96 - 152 sec [facility] Comment: HOSPITAL Meter ID: [id number] [place] Roofer Helper: Antonieta Mitchell Specimen Performing Organization Address [facility] Centercode Phone Number [facility] DEPARTMENT OF PATHOLOGY AND [address] [place] [phone] [address] Urinalysis screen and microscopy, with reflex to culture (06/17/2018 3:40 AM HOUSING PROPERTY MANAGER) Specimen site Clean catch [facility] Color, UA Yellow [facility] Appearance, UA Clear [facility] Specific gravity, UA 1.023 1.001 - 1.035 [facility] pH, UA 5.0 5.0 - 8.5 [facility] Protein, UA 1+ (A) Negative [facility] Glucose, UA Negative Negative [facility] Ketones, UA Negative Negative [facility] Bilirubin, UA Negative Negative [facility] Blood, UA Negative Negative [facility] Nitrite, UA Negative Negative [facility] Urobilinogen, UA <2.0 <2.0 [facility] Leukocyte esterase, Negative Negative [facility] Epithelial cells, UA 2 /HPF [facility] WBC, UA 3 (H) 0 - 1 /HPF [facility] RBC, UA 2 0 - 5 /HPF [facility] Bacteria, UA None seen None seen [facility] Yeast, UA None seen [facility] Yeast with None seen [facility] pseudohyphae, UA HOSPITAL Specimen Urine Performing Organization Address City/[facility]/Zipcode Phone Number [facility] DEPARTMENT OF PATHOLOGY AND [address] [place] [address] Urine drugs of abuse screen (06/17/2018 3:40 AM HOUSING PROPERTY MANAGER) Amphetamine screen, Negative [facility] urine [facility] Barbiturate screen, Negative [facility] urine [facility] Benzodiazepine Negative [facility] [place] screen, urine [facility] Cannabinoid screen, Negative [facility] urine [facility] Cocaine screen, urine Negative [facility] Methadone metabolite Negative [facility] [place] (EDDP), urine [facility] Opiates screen, urine Negative [facility] Oxycodone screen, Negative [facility] urine [facility] Phencyclidine screen, Negative [facility] urine [facility] Tricyclic screen, Negative [facility] urine Comment: [facility] Drug screen minimum concentration of [facility] Gucxyxudubfq3245 ng/mL Barbiturates 200 ng/mL Youcrfowqawxeax764 ng/mL Zdwouvg460 ng/mL Ykyxwlywd036 ng/mL Dbtmuti060 ng/mL Ymktozmrn806 ng/mL Phencyclidine 25 ng/mL Jamprnerbhtw30 ng/mL Jezfxaelsu6087 ng/mL Negative test results indicates presumptive evidence of lack of clinically significant drug concentration in this urine specimen. Positive test results are presumptive evidence of clinically significant drug concentration in this urine specimen. Testing performed for medical purposes only. Specimen Urine Performing Organization Address [facility] Phone Number [facility] DEPARTMENT OF PATHOLOGY AND [address] [place] [phone] [place] [phone] Urine culture (06/17/2018 3:40 AM HOUSING PROPERTY MANAGER) Urine culture SEE COMMENTComment: [facility] Bacteriuria screen HOSPITAL negative. Specimen Performing Organization Address City/[facility] Centercode Phone Number [facility] DEPARTMENT OF PATHOLOGY AND [address] [place] [phone] [place] [address] Thyroid stimulating hormone (06/17/2018 3:40 AM HOUSING PROPERTY MANAGER) TSH 2.86 0.27 - 4.20 uIU/mL [facility] Specimen Plasma specimen Performing Organization Address City/[facility]/Zipcode Phone Number [facility] DEPARTMENT OF PATHOLOGY AND [address] [place] [address] [facility] [address] [place] [address] Hemoglobin A1c (06/17/2018 3:40 AM HOUSING PROPERTY MANAGER) Hemoglobin A1C 5.0 4.0 - 5.6 % [facility] Comment: HOSPITAL HbA1c cutoffs for diagnosing diabetes: 4.0% - 5.6%=normal 5.7% - 6.4%=increased risk for diabetes (prediabetes) >=6.5%=diabetes Goals for glycemic control (ADA 2016) < 7.0%Target for non adults with diabetes. More or less stringent targets may be appropriate for individual patients. <7.5% Target for Children and adolescents with type 1 diabetes. Specimen Blood Performing Organization Address City/State/Zipcode Phone Number [facility] DEPARTMENT OF PATHOLOGY AND [address] [place] [address] [address] Lipid panel (06/17/2018 3:40 AM HOUSING PROPERTY MANAGER) Cholesterol 162 <200 mg/dL [facility] Triglycerides 541 (H) <150 mg/dL [facility] HDL cholesterol 28 (L) >40 mg/dL [facility] LDL cholesterol 72Comment: Result <100 mg/dL [facility] [place] obtained by direct [facility]UZE LDL measurement [facility] Lip[facility] panel [facility] interpretation Comment: [facility] Total Cholesterol (mg/dL) [facility] <200 Desirable 426-734Gjxfirvign-stbx >=240High Triglycerides (mg/dL) <150 Normal 518-462Uupxfvxkmo-ydvh 200-499High >=500Very high HDL Cholesterol (mg/dL) <40Low (male) <40Low (female) LDL Cholesterol (mg/dL) <100 Optimal 100-129Near or above optimal 190-294Vtrtxmqhxw-euxr 160-189High >=190Very high Risk Catergories that modify [...] mg/dL) Specimen Plasma specimen Performing Organization Address City/[facility]oid Phone Number [facility] DEPARTMENT OF PATHOLOGY AND [address] [place] [address] GENOMIC MEDICINE [facility] [address] [place] [address] ECG ED Preliminary Interpretation - Not an Order (06/16/2018 11:19 PM HOUSING PROPERTY MANAGER) Narrative Performed At Gerard Crowder DO 06/17/2018 12:53 AM ECG ED Preliminary Interpretation - Not an Order Performed by: Gerard Crowder DO Authorized by: Gerard Crowder DO ECG reviewed by ED Physician in the absence of a elastic attacher chainstitch: yes Previous ECG: Previous ECG:Compared to current [...] XR Chest 2 Vw (06/16/2018 10:17 PM HOUSING PROPERTY MANAGER)Only the most recent of2 resultswithin the time period is included. Specimen Narrative Performed At EXAMINATION:XR CHEST 2 VW [facility] CLINICAL HISTORY:Chest pain or SOBpleurisy or effusion suspected COMPARISON:June 03, 2018 IMPRESSION: 1.Heart size within normal limits. 2.There is some volume loss of the lung bases. 3.No consolidation or effusion is seen. [id number] Procedure Note Interface, Radiology Results Incoming - 06/16/2018 10:23 PM HOUSING PROPERTY MANAGER EXAMINATION: XR CHEST 2 VW CLINICAL HISTORY: Chest pain or SOB pleurisy or effusion suspected COMPARISON: June 03, 2018 IMPRESSION: 1. Heart size within normal limits. 2. There is some volume loss of the lung bases. 3. No consolidation or effusion is seen. [id number] Performing Organization Address City/[facility] Cent[facility]ode Phone Number [facility] [address] [place] [address] Partial thromboplastin time, activated (06/16/2018 10:15 PM HOUSING PROPERTY MANAGER) Pathologist [facility] PTT 30.6 23.0 - 36.0 [facility] Comment: [facility] PTT therapeutic range for unfractionated heparin is 61.0-112.0 seconds which corresponds to Anti-Xa 0.3-0.7 U/ml. Specimen Blood Performing Organization Address City/State/Zipcode Phone Number [facility] DEPARTMENT OF PATHOLOGY AND [address] [place] [phone] [place] [phone] Prothrombin time with INR (06/16/2018 10:15 PM HOUSING PROPERTY MANAGER) Pathologist [facility] Prothrombin time 12.6 11.5 - 14.5 [facility] INR 1.0 [facility] Comment: [facility] The International Normalized Ratio (INR) is a therapeutic HOSPITAL monitoring tool for patients who are stable on oral anticoagulant therapy. An INR of 2.0-3.0 is suggested for deep vein thrombosis/pulmonary embolism. Specimen Blood Performing Organization Address City/[facility] Cent[facility]ode Phone Number [facility] DEPARTMENT OF PATHOLOGY AND [address] [place] [phone] [address] B natriuretic peptide (06/16/2018 10:15 PM HOUSING PROPERTY MANAGER) Pathologist [facility] BNP 18 0 - 100 pg/mL [facility] Specimen Blood Performing Organization Address City/[facility] Centercode Phone Number [facility] DEPARTMENT OF PATHOLOGY AND [address] [place] [phone] [address] Comprehensive metabolic panel (06/16/2018 10:15 PM HOUSING PROPERTY MANAGER) Pathologist [facility] Sodium 144 135 - 148 [facility] mEq/L [facility] Potassium 4.0 3.5 - 5.0 [facility] mEq/L [facility] Chloride 104 98 - 112 mEq/L [facility] CO2 29 24 - 31 mEq/L [facility] Anion gap 11@ANIO 7 - 15 mEq/L [facility] BUN 19 8 - 23 mg/dL [facility] Creatinine 1.05 0.70 - 1.20 [facility] mg/dL [facility] Glucose 92 65 - 99 mg/dL [facility] Calcium 9.9 8.8 - 10.2 [facility] mg/dL [facility]OSPITAL Protein 7.5 6.3 - 8.3 g/dL [facility] Comment: HOSPITAL Nakina 4.6-7.0 g/dL 1 week 4.4-7.6 g/dL 7 months-1year5.1-7.3 g/dL 1-2 years5.6-7.5 g/dL >3 years6.0-8.0 g/dL 18-150 6.3-8.3 g/dL Albumin 3.6 3.5 - 5.0 g/dL [facility] A/G ratio 0.9 0.7 - 3.8 [facility] Alkaline phosphatase 55 40 - 129 U/L [facility] AST 25 10 - 50 U/L [facility] ALT 29 5 - 50 U/L [facility] Total bilirubin 0.4 0.0 - 1.2 [facility] mg/dL [facility] Specimen Plasma specimen Performing Organization Address [facility] Centercoid Phone Number [facility] DEPARTMENT OF PATHOLOGY AND [address] [place] [address] GENOMIC MEDICINE [address] [address] ECG 12 lead (06/16/2018 9:58 PM HOUSING PROPERTY MANAGER) Ventricular rate 72 [facility] Atrial rate 72 [facility] [place] interval 166 [facility] QRSD interval 144 [...] automated comparison with ECG of 25-JUL-2014 0 [facility] MUSE 7:43,-(RBBB and left anterior fascicular block) is now present-Inferior infarct is now present- Specimen Narrative Performed At Performing Organization Address City/[facility] Centercode Phone Number [facility] [address] [place] [address] after 03/06/2018 Insurance Payer Benefit Plan / Subscriber ID Effective Dates Phone Address Type [facility] Per Vices [facility] xxxxxxxxxxxx 2017-[employer] CHOICE EXCHANGE EXCHANGE t MARK[employer] Advance Directives For more information, please contact: [phone] Type Date Recorded Patient Entry Level Mechanical Engineer Explanation Advance Directives, Living Will and Medical Power of Registered Radiographer
--- NOTE | 2019-03-07 13:58 | EDPHYS ---
Physician Documentation [facility] Name: Duke Leon Age: 64 yrs Sex: Male : 1955 Arrival Date: 03/07/2019 Time: 13:26 Bed 9 Private MD: ED Physician Jamison Jacobson HPI: 03/07 13:59 This 64 yrs old Male presents to ER via Ambulatory with complaints of kb shingles. 14:01 The patient's rash thought to be caused by shingles. The rash is located on the left kb arm. The rash can be described as vesicular. Onset: The symptoms/episode began/occurred 1 week(s) ago. Associated signs and symptoms: Pertinent positives: Pain. Severity of symptoms: At their worst the symptoms were moderate in the emergency department the symptoms are unchanged. The patient has not experienced similar symptoms in the past. The patient has been recently seen by a physician:. Pt reports he came in a week ago and was diagnosed with shingles. States everything is getting better and he is almost out of the prescribed medication, but he was told to follow up so he is here for that. . Historical: - Allergies: 13:40 No Known Allergies; aa5 - PMHx: 13:40 Hypertension; Right eye prosthetic; aa5 - PSHx: 13:40 Hernia repair; aa5 - Immunization history:: Adult Immunizations up to date. - Social history:: Smoking status: Patient/guardian denies using tobacco. - Ebola Screening: : No symptoms or risks identified at this time. ROS: 14:01 Constitutional: Negative for fever, chills, and weight loss, Cardiovascular: Negative kb for chest pain, palpitations, and edema, Respiratory: Negative for shortness of breath, cough, wheezing, and pleuritic chest pain, Abdomen/GI: Negative for abdominal pain, nausea, vomiting, diarrhea, and constipation, Back: Negative for injury and pain, MS/Extremity: Negative for injury and deformity, Neuro: Negative for headache, weakness, numbness, tingling, and seizure. 14:01 Skin: Positive for rash. Exam: 13:59 Constitutional: This is a well developed, well nourished patient who is awake, alert, kb and in no acute distress. Head/Face: Normocephalic, atraumatic. ENT: Nares patent. No nasal discharge, no septal abnormalities noted. Tympanic membranes are normal and external auditory canals are clear. Oropharynx with no redness, swelling, or masses, exudates, or evidence of obstruction, uvula midline. Mucous membranes moist. Neck: Trachea midline, no thyromegaly or masses palpated, and no cervical lymphadenopathy. Supple, full range of motion without nuchal rigidity, or vertebral point tenderness. No Meningismus. Chest/axilla: Normal chest wall appearance and motion. Nontender with no deformity. No lesions are appreciated. Cardiovascular: Regular rate and rhythm with a normal S1 and S2. No gallops, murmurs, or rubs. Normal PMI, no JVD. No pulse deficits. Respiratory: Lungs have equal breath sounds bilaterally, clear to auscultation and percussion. No rales, rhonchi or wheezes noted. No increased work of breathing, no retractions or nasal flaring. MS/ Extremity: Pulses equal, no cyanosis. Neurovascular intact. Full, normal range of motion. Neuro: Awake and alert, GCS 15, oriented to person, place, time, and situation. Cranial nerves II-XII grossly intact. Motor strength 5/5 in all extremities. Sensory grossly intact. Cerebellar exam normal. Normal gait. 13:59 Skin: rash can be described as vesicular, on the left arm. Vital Signs: 13:40 BP 135 / 70; Pulse 65; Resp 16 S; Temp 98.7(TE); Pulse Ox 97% on R/A; Weight 122.47 kg aa5 (R); Height 5 ft. 6 in. (167.64 cm) (R); Pain 0/10; 13:40 Body Mass Index 43.58 (122.47 kg, 167.64 cm) aa5 MDM: 13:44 Patient medically screened. kb 13:54 Data reviewed: vital signs, nurses notes. Data interpreted: Pulse oximetry: on room air kb is 97 %. Interpretation: normal. Counseling: I had a detailed discussion with the patient and/or guardian regarding: the historical points, exam findings, and any diagnostic results supporting the discharge/admit diagnosis, the need for outpatient follow up, a family practitioner, to return to the emergency department if symptoms worsen or persist or if there are any questions or concerns that arise at home. Administered Medications: No medications were administered Disposition: 13:54 Encounter for follow up after being treated for shingles. kb 15:39 Co-signature as Attending Physician, Jamison Jacobson MD. rn Disposition: 03/07/19 13:56 Discharged to Home. Impression: Encounter for screening, unspecified. - Condition is Stable. - Medication Reconciliation Form, Thank You Letter, Antibiotic Education, Prescription Opioid Use form. - Follow up: Emergency Department; When: As needed; Reason: Worsening of condition. Follow up: Private Physician; When: 2 - 3 days; Reason: Recheck today's complaints, Continuance of care, Re-evaluation by your physician. Signatures: Jen Hunt, INTERNATIONAL PROJECT ENGINEER-C INTERNATIONAL PROJECT ENGINEER-Ckb Ainsley Valdes RN RN iw Jamison Jacobson MD MD rn Calderon, Audri, RN RN aa5 Corrections: (The following items were deleted from the chart) 13:59 13:56 03/07/2019 13:56 Discharged to Home. Impression: Encounter for screening, iw unspecified. Condition is Stable. Forms are Medication Reconciliation Form, Thank You Letter, Antibiotic Education, Prescription Opioid Use. Follow up: Emergency Department; When: As needed; Reason: Worsening of condition. Follow up: Private Physician; When: 2 - 3 days; Reason: Recheck today's complaints, Continuance of care, Re-evaluation by your physician. kb
--- NOTE | 2019-03-07 13:58 | ER ---
Nurse's Notes [facility] Name: Duke Leon Age: 64 yrs Sex: Male : 1955 Arrival Date: 03/07/2019 Time: 13:26 Bed 9 Private MD: Diagnosis: Encounter for screening, unspecified Presentation: 03/07 13:38 Presenting complaint: Patient states: "I have shingles and I only have 4 more pills of aa5 the Acyclovir and it is getting better but I couldn't get in to see a doctor for a follow-up so here I am". Pt reports rash has improved. Transition of care: patient was not received from another setting of care. Onset of symptoms was February 2019. Risk Assessment: Do you want to hurt yourself or someone else? Patient reports no desire to harm self or others. Initial Sepsis Screen: Does the patient meet any 2 criteria? No. Patient's initial sepsis screen is negative. Does the patient have a suspected source of infection? No. Patient's initial sepsis screen is negative. Care prior to arrival: None. 13:38 Acuity: NATALIE 5 aa5 13:38 Method Of Arrival: Ambulatory aa5 Historical: - Allergies: 13:40 No Known Allergies; aa5 - PMHx: 13:40 Hypertension; Right eye prosthetic; aa5 - PSHx: 13:40 Hernia repair; aa5 - Immunization history:: Adult Immunizations up to date. - Social history:: Smoking status: Patient/guardian denies using tobacco. - Ebola Screening: : No symptoms or risks identified at this time. Screenin:40 Abuse screen: Denies threats or abuse. Nutritional screening: No deficits noted. aa5 Tuberculosis screening: No symptoms or risk factors identified. Fall Risk None identified. Assessment: 13:40 General: Appears comfortable, Behavior is calm, cooperative. Pain: Complains of pain in aa5 left arm Pain currently is 0 out of 10 on a pain scale. Quality of pain is described as stinging, Is intermittent, Alleviated by medications. Neuro: Level of Consciousness is awake, alert, obeys commands, Oriented to person, place, time, situation. Cardiovascular: Patient's skin is warm and dry. Respiratory: Airway is patent Respiratory effort is even, unlabored, Respiratory pattern is regular, symmetrical. GI: No signs and/or symptoms were reported involving the gastrointestinal system. : No signs and/or symptoms were reported regarding the genitourinary system. EENT: No signs and/or symptoms were reported regarding the EENT system. Derm: Skin is pink, warm \\T\\ dry. Rash noted that is red, raised, on left arm. Musculoskeletal: Range of motion: intact in all extremities. Vital Signs: 13:40 BP 135 / 70; Pulse 65; Resp 16 S; Temp 98.7(TE); Pulse Ox 97% on R/A; Weight 122.47 kg aa5 (R); Height 5 ft. 6 in. (167.64 cm) (R); Pain 0/10; 13:40 Body Mass Index 43.58 (122.47 kg, 167.64 cm) aa5 ED Course: 13:26 Patient arrived in ED. mr 13:38 Arm band placed on. aa5 13:38 Patient has correct armband on for positive identification. Bed in low position. aa5 13:39 Triage completed. aa5 13:41 Salma Roach, RN is Primary Nurse. aa5 13:44 Jen Hunt FNP-C is PHCP. kb 13:44 Jamison Jacobson MD is Attending Physician. kb 13:58 No provider procedures requiring assistance completed. Patient did not have IV access aa5 during this emergency room visit. Administered Medications: No medications were administered Outcome: 13:56 Discharge ordered by MD. kb 13:58 Medical screen evaluation completed per provider. Patient declined treatment. iw 13:59 Following a medical screening exam, the patient was provided information regarding iw alternative care sites and resources available per registration personnel. 13:59 Patient left the ED. iw Signatures: Jen Hunt FNP-C FNP-Nathan Raquel Woodard Ainsley Valdes, RN SUNDAR iw Salma Roach, SUNDAR RN aa5
[2019-03-07 14:05] VITALS: BP 135/70; TEMP 98.7; O2SAT 97
== END 2019-03-07 13:59 | disposition home or self-care (01) ==
LOC: ER 13:22
DX: B02.9 Zoster without complications (principal); Z76.0 Encounter for issue of repeat prescription
CPT/HCPCS: 99281

== ENCOUNTER 2020-02-03 22:07 | Inpatient (IN) | payer OTHER ==
--- OUTSIDE RECORDS SUMMARY | 2020-02-03 22:11 | XMS REPORT | Clinical Summary ---
:1955 Author Organization [facility] Address [address] [place] [address] Care Team Providers Name Role Phone Asked, Pcp Primary Care Provider Unavailable Allergies No Known Allergies Medications Medication Sig Dispensed Refills Start Date End Date Status ferrous sulfate Take 325 mg 0 Ac tive 325 (65 FE) MG by mouth tablet daily. lisinopril Take 1 30 tablet 0 06/09/2019 Active (PRINIVIL) 10 mg tablet (10 tablet mg total) by mouth 2 (two) times a day. pantoprazole Take 1 60 tablet 0 06/09/2019 Active (PROTONIX) 40 MG tablet (40 EC tablet mg total) by mouth 2 (two) times a day. rosuvastatin Take 1 30 tablet 0 06/09/2019 Active (CRESTOR) 10 MG tablet (10 tablet mg total) by mouth nightly. metoprolol Take 0.5 30 tablet 0 06/09/2019 Active succinate XL tablets (TOPROL-XL) 25 mg (12.5 mg 24 hr tablet total) by mouth 2 (two) times a day. tamsulosin Take 1 30 capsule 0 06/09/2019 Active (FLOMAX) 0.4 mg capsule (0.4 capsule mg total) by mouth daily. amLODIPine Take 1 30 tablet 0 06/09/2019 Active (NORVASC) 10 mg tablet (10 tablet mg total) by mouth 2 (two) times a day. lisinopril Take 10 mg 0 Disconti nued (PRINIVIL,ZESTRIL) by mouth 2 9 (Reorder) 10 mg tablet (two) times a day. rosuvastatin Take 10 mg 0 Discon tinued (CRESTOR) 10 MG by mouth 9 (Reo rder) tablet nightly. tamsulosin Take 0.4 mg 0 Discont inued (FLOMAX) 0.4 mg by mouth 9 (Reo rder) capsule daily. clopidogrel Take 75 mg 0 Discont inued (PLAVIX) 75 mg by mouth 9 (Stop Taking at tablet daily. Discharge) metoprolol Take 12.5 mg 0 Discon tinued succinate XL by mouth 2 9 (Reord er) (TOPROL-XL) 25 mg (two) times 24 hr tablet a day. amLODIPine Take 10 mg 0 Disconti nued (NORVASC) 10 mg by mouth 2 9 (Re order) tablet (two) times a day. aspirin (ECOTRIN) Take 81 mg 0 D iscontinued 81 MG enteric by mouth 9 (Stop Taking at coated tablet nightly. Discha rge) pantoprazole Take 1 60 tablet 0 06/09/2019 Discon tinued (PROTONIX) 40 MG tablet (40 9 (R eorder) EC tablet mg total) by mouth 2 (two) times a day. polyethylene Take 17 g by 30 packet 0 06/09/2019 Dis continued glycol (MIRALAX) mouth daily 9 17 gram packet for 30 days. polyethylene Take 17 g by 30 packet 0 06/09/2019 Exp ired glycol (MIRALAX) mouth daily 9 17 gram packet for 30 days. Active Problems Problem Noted Date Gastrointestinal hemorrhage 06/06/2019 Gastrointestinal hemorrhage with melena 06/06/2019 Overview: Added automatically from request for johnson yvan [id number] HLD (hyperlipidemia) 06/17/2018 HTN (hypertension) 06/17/2018 Precordial chest pain 06/16/2018 Encounters Date Type Specialty Care Team Description Surgery Gastroenterology Amaratunge, ESOPHAGOGAS TRODUODENOSCOPY 9 Chirag (EGD) w/ kirt Garcia MD Anesthesia Gastroenterology Jamison Espino, [facility] Rehrer, [place] Gastrointestina l hemorrhage, unspecified gastrointestinal hemorrhage type (Primary Dx); 9 - Encounter David, DO Anemia, unspecified type; Pedrito, Hypotension, un specified hypotension type; 9 Jeet Lyons MD Gastrointesti nal hemorrhage with melena after 02/02/2019 Social History Tobacco Use Types Packs/Day Years [...] six or more drinks on one occasion? No t asked Sex Assigned at Date Recorded Not on file Job Start Date Occupation Industry Not on file Not on file Not on file Travel History Travel Start Travel End No recent travel history available. Last Filed Vital Signs Vital Sign Reading Time Taken Comments Blood Pressure 122/71 06/09/2019 11:59 AM PROCESS MANAGER Pulse 66 06/09/2019 11:59 AM PROCESS MANAGER Temperature 36.8 C (98.2 F) 06/09/2019 11:59 AM PROCESS MANAGER Respiratory Rate 18 06/09/2019 11:59 AM PROCESS MANAGER Oxygen Saturation 95% 06/09/2019 11:59 AM PROCESS MANAGER Inhaled Oxygen Concentration - - Weight 118 kg (260 lb 1.6 oz) 06/07/2019 5:02 AM PROCESS MANAGER Height 170.2 cm (5' 7") 06/07/2019 5:02 AM PROCESS MANAGER Body Mass Index 40.74 06/07/2019 5:02 AM PROCESS MANAGER Plan of Treatment Health Maintenance Due Date Last Done Comments COLONOSCOPY SCREENING 02/13/2006 SHINGLES VACCINES (#1) 02/13/2006 INFLUENZA VACCINE 02/18/2020 Procedures Procedure Name Priority Date/Time Associated Diagnosis Comme nts ESTIMATED GFR Routine 06/09/2019 Results for 5:20 AM PROCESS MANAGER this procedure are in the results section. B NATRIURETIC PEPTIDE Routine 06/09/2019 Result s for 5:20 AM PROCESS MANAGER this procedure are in the results section. BASIC METABOLIC PANEL Routine 06/09/2019 Result s for 5:20 AM PROCESS MANAGER this procedure are in the results section. MAGNESIUM LEVEL Routine 06/09/2019 Results for 5:20 AM PROCESS MANAGER this procedure are in the results section. CBC WITH PLATELET AND Routine 06/09/2019 Result s for DIFFERENTIAL 5:20 AM PROCESS MANAGER this procedure are in the results section. ESOPHAGOGASTRODUODENOSCOPY 06/08/2019 Gastrointestin al (EGD) 2:47 PM PROCESS MANAGER hemorrhage with melena SURGICAL PATHOLOGY REQUEST Routine 06/08/2019 R esults for 9:18 AM PROCESS MANAGER this procedure are in the results section. ESTIMATED GFR Routine 06/08/2019 Results for 4:57 AM PROCESS MANAGER this procedure are in the results section. B NATRIURETIC PEPTIDE Routine 06/08/2019 Result s for 4:57 AM PROCESS MANAGER this procedure are in the results section. BASIC METABOLIC PANEL Routine 06/08/2019 Result s for 4:57 AM PROCESS MANAGER this procedure are in the results section. MAGNESIUM LEVEL Routine 06/08/2019 Results for 4:57 AM PROCESS MANAGER this procedure are in the results section. CBC WITH PLATELET AND Routine 06/08/2019 Result s for DIFFERENTIAL 4:57 AM PROCESS MANAGER this procedure are in the results section. ESTIMATED GFR Routine 06/07/2019 Results for 4:13 AM PROCESS MANAGER this procedure are in the results section. BASIC METABOLIC PANEL Routine 06/07/2019 Result s for 4:13 AM PROCESS MANAGER this procedure are in the results section. MAGNESIUM LEVEL Routine 06/07/2019 Results for 4:13 AM PROCESS MANAGER this procedure are in the results section. HC COMPLETE BLD COUNT W/AUTO Routine 06/07/2019 Results for DIFF 4:13 AM PROCESS MANAGER this procedure are in the results section. TROPONIN Timed 06/07/2019 Results for 4:13 AM PROCESS MANAGER this procedure are in the results section. TRANSFUSE RED BLOOD CELLS Routine 06/07/2019 3:45 AM PROCESS MANAGER TRANSFUSE RED BLOOD CELLS Routine 06/07/2019 1:34 AM PROCESS MANAGER ECG ED PRELIMINARY Routine 06/06/2019 Results f or INTERPRETATION 9:37 PM PROCESS MANAGER this procedure are in the results section. DE CRITICAL CARE, E/M 30-74 Routine 06/06/2019 Results for MINUTES 9:37 PM PROCESS MANAGER this procedure are in the results section. PREPARE RBC Routine 06/06/2019 Results for 7:45 PM PROCESS MANAGER this procedure are in the results section. TYPE AND SCREEN Routine 06/06/2019 Results for 7:45 PM PROCESS MANAGER this procedure are in the results section. TROPONIN Timed 06/06/2019 Results for 7:45 PM PROCESS MANAGER this procedure are in the results section. XR CHEST 2 VW STAT 06/06/2019 Results for 6:36 PM PROCESS MANAGER this procedure are in the results section. SMEAR REVIEW STAT 06/06/2019 Results for 6:14 PM PROCESS MANAGER this procedure are in the results section. ESTIMATED GFR STAT 06/06/2019 Results for 6:14 PM PROCESS MANAGER this procedure are in the results section. PROTHROMBIN TIME WITH INR STAT 06/06/2019 Re sults for 6:14 PM PROCESS MANAGER this procedure are in the results section. PARTIAL THROMBOPLASTIN TIME STAT 06/06/2019 Results for (PTT) 6:14 PM PROCESS MANAGER this procedure are in the results section. B NATRIURETIC PEPTIDE STAT 06/06/2019 Result s for 6:14 PM PROCESS MANAGER this procedure are in the results section. TROPONIN STAT 06/06/2019 Results for 6:14 PM PROCESS MANAGER this procedure are in the results section. COMPREHENSIVE METABOLIC PANEL STAT 06/06/2019 Results for 6:14 PM PROCESS MANAGER this procedure are in the results section. HC COMPLETE BLD COUNT W/AUTO STAT 06/06/2019 Results for DIFF 6:14 PM PROCESS MANAGER this procedure are in the results section. ECG 12-LEAD STAT 06/06/2019 Results for 5:40 PM PROCESS MANAGER this procedure are in the results section. after 02/02/2019 Results Estimated GFR (06/09/2019 5:20 AM PROCESS MANAGER)Only the most recent of4 resultswithin the time period is included. [facility] Estimated GFR 69 mL/min/1.73 [facility] Comment: m2 HOSPITAL Catergory Units Interpretation G1 >=90 Normal or high G2 60-89 Mildly decreased G3a 45-59 Mildly to moderately decreas ed G3b 30-44 Moderately to severely decre ased G4 15-29 Severely decreased G5 <15 Kidney failure The eGFR was calculated using the Chronic Kidney Disea se Epidemiology Collaboration (CKD-EPI) equation. Interpretation is based on recommendations of the National Kidney Foundation-Kidney Disease Outcomes [place] lity Initiative (NKF-KDOQI) published in 2014. Specimen Plasma specimen Performing Organization Address City/State/Zipcode Phone Number [facility] DEPARTMENT OF PATHOLOGY AND [address], [place] [address] GENOM[address] [address] CBC with platelet and differential (06/09/2019 5:20 AM PROCESS MANAGER)Only the most recent of4 resultswithin the time period is included. [facility] WBC 3.92 (L) 4.50 - 11.00 [facility] k/uL [facility] RBC 2.56 (L) 4.40 - 6.00 [facility] m/[facility] HGB 8.0 (L) 14.0 - 18.0 [facility] g/dL [facility] HCT 25.5 (L) 41.0 - 51.0 % [facility] MCV 99.6 82.0 - 100.0 [facility] MCH 31.3 27.0 - 34.0 pg [facility] MCHC 31.4 31.0 - 37.0 [facility] g/dL [facility] RDW - SD 58.3 (H) 37.0 - 55.0 fL [facility] MPV 9.8 8.8 - 13.2 fL [facility] Platelet count 320 150 - 400 k/uL [facility] Nucleated RBC 0.50 /100 WBC [facility] Neutrophils 60.2 39.0 - 69.0 % [facility] Lymphocytes 27.6 25.0 - 45.0 % [facility] Monocytes 8.4 0.0 - 10.0 % [facility] Eosinophils 2.0 0.0 - 5.0 % [facility] Basophils 0.8 0.0 - 1.0 % [facility] Immature granulocytes 1.0Comment: 0.0 - 1.0 % [facility] "Immature [facility] granulocytes" (promyelocytes , myelocytes, metamyelocytes ) Specimen Blood Performing Organization Address City/[facility] Phone Number [facility] DEPARTMENT OF PATHOLOGY AND [address] [place] [address] [place] [phone] B natriuretic peptide (06/09/2019 5:20 AM PROCESS MANAGER)Only the most recent of3 results within the time period is included. Pathologist Sig nature BNP 30 0 - 100 pg/mL [facility] Specimen Blood Performing Organization Address City/[facility] Phone Number [facility] DEPARTMENT OF PATHOLOGY AND [address] [place] [address] [phone] [address] Magnesium level (06/09/2019 5:20 AM PROCESS MANAGER)Only the most recent of3 resultswithin the time period is included. Pathologist Sig nature Magnesium 2.1 1.6 - 2.4 mg/dL [facility] L Specimen Plasma specimen Performing Organization Address [facility] Phone Number [facility] DEPARTMENT OF PATHOLOGY AND [address] [place] [address] [phone] [address] Basic metabolic panel (06/09/2019 5:20 AM PROCESS MANAGER)Only the most recent of3 results within the time period is included. Pathologist Sig nature Sodium 140 135 - 148 mEq/L [facility] L Potassium 4.1 3.5 - 5.0 mEq/L [facility] Chloride 101 98 - 112 mEq/L [facility] CO2 27 24 - 31 mEq/L [facility] Anion gap 12@ANIO 7 - 15 mEq/L [facility] BUN 11 8 - 23 mg/dL [facility] Creatinine 1.13 0.70 - 1.20 mg/dL [facility] Glucose 103 (H) 65 - 99 mg/dL [facility] Calcium 9.0 8.8 - 10.2 mg/dL [facility] Specimen Plasma specimen Performing Organization Address City/[facility] Phone Number [facility] DEPARTMENT OF PATHOLOGY AND [address] [place] [phone] GENOMIC [address] [address] Surgical pathology request (06/08/2019 9:18 AM PROCESS MANAGER) [facility] DEPARTMENT OF PATHOLOGY AND GENOMIC MEDICINE Surgical pathology See link below [facility] DEPARTMENT OF report for PDF Lab PATHOLOGY AND Report GENOMIC MEDICINE Result status This is Final [facility] DEPARTMENT OF Report for PATHOLOGY AND [id number] GENOMIC MEDICINE Specimen Performing Organization Address [facility] Phone Number [facility] DEPARTMENT OF PATHOLOGY AND [address] [place], [place] [phone] 0 GENOMIC MEDICINE Troponin (06/07/2019 4:13 AM PROCESS MANAGER)Only the most recent of3 resultswithin the time period is included. Troponin <0.006 0.000 - 0.040 [facility] Comment: ng/mL [facility] changed methodology eff ective: 11/23/2018 at 10:00 am The new method has a 99th percentile cutoff of 0.040 n g/mL Specimen Plasma specimen Performing Organization Address City/[facility] Phone Number [facility] DEPARTMENT OF PATHOLOGY AND [address] [place] [address] [phone] [address] Transfuse RBC (06/07/2019 3:45 AM PROCESS MANAGER)Only the most recent of2 resultswithin the time period is included.ECG ED Preliminary Interpretation - Not an Order (06/06/2019 9:37 PM PROCESS MANAGER) Narrative Performed At Gerard Crowder DO 06/07/2019 12:03 PM ECG ED Preliminary Interpretation - Not an Order Performed by: Jesus Manuel Camacho NP-C Authorized by: Gerard Crowder DO ECG reviewed by ED Physician in the abse nce of a project control analyst: yes Previous ECG: Previous ECG: Compared to current Interpretation: Interpretation: abnormal Rate: ECG rate: 70 QRS: QRS intervals: Wide Conduction: Conduction: abnormal Abnormal conduction: complete RBBB Other findings: Other findings: LAE CRITICAL CARE (06/06/2019 9:37 PM PROCESS MANAGER) Narrative Performed At Gerard Crowder DO 06/07/2019 12:03 PM Critical Care Performed by: Jesus Manuel Camacho NP-C Authorized by: Gerard Crowder DO Critical care provider statement: Critical care time (minutes): 35 Critical care was necessary to treat or prevent imminent or life-threatening deterioration of the fo llowing conditions: Cardiac failure (GI bleed needing emergent trans fusion ) Critical care was time spent personal ly by me on the following activities: Development of treatment p samm with patient or surrogate, discussions with consultants, evaluation of patient's response to treatment, examination of patient, obtai obed history from patient or surrogate, ordering and performing treatments and inte rventions, ordering and review of laboratory studies, orderi ng and review of radiographic studies, pulse oximetry, re-evaluation of patient's co ndition and review of old charts Abdelrahman 'yes' if you are taking over critical care for this patient from another provider.: no Comments: The patient is critically ill due to but not limited to: ongoing respiratory failure, high risk for respi ratory failure, hemodynamic or metabolic deterioration, altered mental status, and ac [place] organ failure. The patient is requiring frequent assess ment, treatment, life-saving devices, and prevention and management o f life threatening conditions. Prepare RBC, 2 Units (06/06/2019 7:45 PM PROCESS MANAGER) Product name Red Cells AS1 [place] Leukored [facility] Unit number [id number] [facility] Product code [id number] [facility] Dispense status Transfused [facility] Blood expiration date [id number] [facility] Blood type code 9500 [facility] Blood type O NEGATIVE [facility] Compatibility Compatible [facility] Product name Apher Red Cell AS3 [place] #2 LR/IRR [facility] Unit number [id number] [facility] Product code [id number] [facility] Dispense status Transfused [facility] Blood expiration date [id number] [facility] Blood type code 9500 [facility] Blood type O NEGATIVE [facility] Compatibility Compatible [facility] Specimen Blood Performing Organization Address City/[facility] Phone Number [facility] DEPARTMENT OF PATHOLOGY AND [address] [place] [address] [phone] [address] Type and screen (06/06/2019 7:45 PM PROCESS MANAGER) Pathologist Sig nature ABO grouping O [facility] Rh type NEG [facility] Antibody screen (gel) NEG [facility] Specimen Blood Performing Organization Address [facility] Phone Number [facility] DEPARTMENT OF PATHOLOGY AND [address] [place] [address] [phone] [address] XR Chest 2 Vw (06/06/2019 6:36 PM PROCESS MANAGER) Specimen Narrative Performed At EXAMINATION: XR CHEST 2 VW [facility] CLINICAL HISTORY: Chest Pain COMPARISON: June 16 IMPRESSION: The cardiomediastinal silhouette and central vasculatu re are within normal limits. Atherosclerotic calcifications in the t horacic aorta which is tortuous. The lungs are clear. Degenerative changes in the spine. [facility]-[id number] Procedure Note Interface, Radiology Results Incoming - 06/06/2019 6:43 PM PROCESS MANAGER EXAMINATION: XR CHEST 2 VW CLINICAL HISTORY: Chest Pain COMPARISON: June 16 IMPRESSION: The cardiomediastinal silhouette and nida tral vasculature are within normal limits. Atherosclerotic calcifications in the t horacic aorta which is tortuous. The lungs are clear. Degenerative changes in the spine. [facility]-[id number] Performing Organization Address City/[facility]/Zipcode Phone Number [facility] [address] [place] [address] Smear review (06/06/2019 6:14 PM PROCESS MANAGER) Pathologist Sig nature Platelet slide review [place] adequate [facility] Anisocytosis Moderate [facility] Polychromasia Moderate [facility] Spherocytes Occasional [facility] Enlarged platelets Moderate (A) [facility] Specimen Performing Organization Address City/[facility]/Zipcode Phone Number [facility] DEPARTMENT OF PATHOLOGY AND [address] [place] [address] [phone] [address] Partial thromboplastin time, activated (06/06/2019 6:14 PM PROCESS MANAGER) PTT 26.9 23.0 - 36.0 [facility] Comment: [facility] PTT therapeutic range for unfractionated heparin is 61.0-112.0 seconds which corresponds to Anti-Xa 0.3-0.7 U/ml. Specimen Blood Performing Organization Address City/[facility] Phone Number [facility] DEPARTMENT OF PATHOLOGY AND [address] [place] [address] [phone] [address] Prothrombin time with INR (06/06/2019 6:14 PM PROCESS MANAGER) Prothrombin time 13.9 11.5 - 14.5 [facility] INR 1.1 [place] Comment: [facility] Normalized Ratio (INR) is a therapeu [facility] monitoring tool for patients who are stable on oral anticoagulant therapy. An INR of 2.0-3.0 is suggested for deep vein thrombosis/pulmonary embolism. Specimen Blood Performing Organization Address City/[facility] Phone Number [facility] DEPARTMENT OF PATHOLOGY AND [address] [place] [address] [phone] [address] Comprehensive metabolic panel (06/06/2019 6:14 PM PROCESS MANAGER) Sodium 139 135 - 148 [facility] mEq/L [facility] Potassium 4.5 3.5 - 5.0 [facility] mEq/L [facility] Chloride 104 98 - 112 mEq/L [facility] CO2 24 24 - 31 mEq/L [facility] Anion gap 11@ANIO 7 - 15 mEq/L [facility] BUN 27 (H) 8 - 23 mg/dL [facility] Creatinine 1.33 (H) 0.70 - 1.20 [facility] mg/dL [facility] Glucose 114 (H) 65 - 99 mg/dL [facility] Calcium 9.0 8.8 - 10.2 [facility] mg/dL [facility] Protein 6.5 6.3 - 8.3 g/dL [facility] Comment: HOSPITAL Guhzfsq7825.6-7.0 g/dL 1 xxfd4296.4-7.6 g/dL 7 months-1jqpa363.1-7.3 g/dL 1-2 zeckx060.6-7.5 g/dL >3 uckge329.0-8.0 g/dL 18-5710957.3-8.3 g/dL Albumin 3.1 (L) 3.5 - 5.0 g/dL [facility] A/G ratio 0.9 0.7 - 3.8 [facility] Alkaline phosphatase 61 40 - 129 U/L [facility] AST 22 10 - 50 U/L [facility] ALT 30 5 - 50 U/L [facility] Total bilirubin <0.2 0.0 - 1.2 [facility] mg/dL [facility] Specimen Plasma specimen Performing Organization Address City/[facility] Phone Number [facility] DEPARTMENT OF PATHOLOGY AND [address] [place] [phone] GENOMIC MEDICINE [address] [address] ECG 12 lead (06/06/2019 5:40 PM PROCESS MANAGER) Pathologist Sig nature Ventricular rate 70 [facility] Atrial rate 89 [facility] QRSD interval 142 [facility] QT interval 454 [facility] QTC interval 490 [facility] QRS axis 1 -39 [facility] T wave axis 26 [facility] EKG impression Normal sinus rhythm-Left axi s deviation-Right bundle branch block-Inferior infarct , age undetermined-Abnormal ECG-In automated comparison with ECG of 16-JUN-2018 21:58,-Wide QRS rhythm has replaced Sin [facility] MUSE us rhythm- Specimen Narrative Performed At This result has an attachment that is no t available. Performing Organization Address City/[facility] Phone Number [facility] [address] [place] [address] after 02/02/2019 Advance Directives For more information, please contact: [phone] Type Date Recorded Patient Housing Liaison Explanati on Advance Directives, Living 06/06/2019 8:12 PM Will and Medical Power of Toll Test Worker
--- OUTSIDE RECORDS SUMMARY | 2020-02-03 22:12 | XMS REPORT | Continuity of Care Document ---
:1955 Author Organization [facility] t Address [address] [place] [address] Dr. Larson [address] [place] [id number] Care Team Providers Name Role Phone Asked, Pcp Primary Care Physician Unavailable Rehrer David ELIZONDO Attending Clinician Eloy Major MD Attending Clinician Radha Arias MD Attending Clinician [phone] Srinivas FERREIRA Attending Clinician PEDRITO Admitting Clinician Unavailable Payers Payer Name Policy Type Policy Number Effective Date Expiration Date S ource [facility] PPO xxxxxxxxx 2019 [place] [employer] 00:00:00 [facility] xx2019-Pre sentPPO Problems Condition Condition Condition Status Onset Resolution Last Treating Co mments Source Name Details Category Date Date Treatment Clinician Date 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 [place] stinal stinal 1-18 [facility] hemorrhage hemorrhage 00:00: st 00 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 Overview : [place] stinal stinal 1-18 Added Method[facility] hemorrhage hemorrhage 00:00: automatic st with with 00 ally from melena melena request for surgery [id number] HLD HLD Disease Active 2017-07 [place] (hyperlipi (hyperlipi 1-29 Me thodi demia) demia) 00:00: st 00 HTN HTN Disease Active 2017-07 [facility] (hypertens (hypertens 1-29 Me thodi ion) ion) 00:00: st 00 Precordial Precordial Disease Active 2017-07 [place] chest pain chest pain 1-28 Me thodi 00:00: st 00 Allergies, Adverse Reactions, Alerts This patient has no known allergies or adverse reactions. Social History Social Habit Start Date Stop Date Quantity Comments Source History of tobacco Current smoker [facility] [place] [facility] use History [facility] Meth odist Alcohol Std Drinks History [facility] Meth odist Alcohol Binge Sex Assigned At [facility] M ethodist Alcohol intake 2019-06-09 2019-06-09 Current [facility] thodist 00:00:00 00:00:00 non-drinker of alcohol (finding) History SDKY 2018-06-16 2018-06-16 1 [place] od[facility] Alcohol Frequency 00:00:00 00:00:00 Smoking Status Start Date Stop Date Source Former smoker 2019-06-09 00:00:00 2019-06-09 00:00:00 [facility] Medications Ordered Filled Start Stop Current Ordering Indication Dosage Frequency Signature Comments Components Source Medication Medication Date Date Medication? Clinician (SIG) Name Name clopidogrel 2018-07- No 75mg QD Take 75 mg [place] (PLAVIX) 75 08-09 by mouth Met hodi mg tablet 13:20: 00:[address] 26 :00 aspirin 2018-07- No 81mg QD Take 81 mg Linda ston (ECOTRIN) 08-09 by mouth Metho di 81 MG 13:20: 00:[address] enteric 26 :00 coated tablet ferrous 2018-07 Yes 325mg QD Take 325 [place] sulfate 325 1-21 mg by Methodi (65 FE) MG 13:20: mouth st tablet 21 daily. lisinopril 2018-07- No 10mg Q.5D Take 10 mg [place] (PRINIVIL,Z 08-09 by mouth 2 M ethodi ESTRIL) 10 12:30: 00:00 (two) st mg tablet 57 :00 times a day. rosuvastati 2018-07- No 10mg QD Take 10 mg Hyde n (CRESTOR) 08-09 by mouth Met hodi 10 MG 12:30: 00:[address] tablet 57 :00 tamsulosin 2018-07- No .4mg QD Take 0.4 [place] (FLOMAX) 08-09- mg by Methodi 0.4 mg 12:30: 00:[address] capsule 57 :00 daily. metoprolol 2018-07- No 12.5mg Q.5D Take 12.5 [place] succinate 1-21 11-21 mg by Methodi XL 12:30: 00:[address] (TOPROL-XL) 57 :00 (two) 25 mg 24 hr times a tablet day. amLODIPine 2018-07- No 10mg Q.5D Take 10 mg [place] (NORVASC) 1-21 11-21 by mouth 2 Met hodi 10 mg 12:30: 00:00 (two) st tablet 57 :00 times a day. lisinopril 2018-07 Yes 10mg Q.5D Take 1 [place] (PRINIVIL) 1-21 tablet (10 Met hodi 10 mg 00:00: mg total) st tablet 00 by mouth 2 (two) times a day. pantoprazol 2018-07 Yes 40mg Q.5D Take 1 [place] -[place] tablet (40 [facility] (PROTONIX) 00:00: mg total) st 40 MG EC 00 by mouth 2 tablet (two) times a day. rosuvastati 2018-07 Yes 10mg QD Take 1 [place] (CRESTOR) 1-21 tablet (10 Me thodi 10 MG 00:00: mg total) st tablet 00 by mouth nightly. metoprolol 2018-07 Yes 12.5mg Q.5D Take 0.5 [place] succinate 1-21 tablets Methodi XL 00:00: (12.[address] (TOPROL-XL) 00 total) by 25 mg 24 hr mouth 2 tablet (two) times a day. tamsulosin 2018-07 Yes .4mg QD Take 1 [place] (FLOMAX) 1-21 capsule Methodi 0.4 mg 00:00: (0.[address] capsule 00 total) by mouth daily. amLODIPine 2018-07 Yes 10mg Q.5D Take 1 [place] (NORVASC) 1-21 tablet (10 Meth sivan 10 mg 00:00: mg total) st tablet 00 by mouth 2 (two) times a day. polyethylen 2018-07- No 17g QD Take 17 g Hyde e glycol - 12-21 by mouth Method i (MIRALAX) 00:00: 23:[address] 17 gram 00 :00 30 days. packet pantoprazol 2018-07- No 40mg Q.5D Take 1 Linda ston e 08-09 tablet (40 Methodi (PROTONIX) 00:00: 00:00 mg total) s t 40 MG EC 00 :00 by mouth 2 tablet (two) times a day. polyethylen 2018-07- No 17g QD Take 17 g Barrett amor glycol 08-09 by mouth Method i (MIRALAX) 00:00: 00:[address] 17 gram 00 :00 30 days. packet Vital Signs Vital Name Observation Time Observation Value Comments Source Systolic blood 2019-06-09 11:59:40 122 mm[Hg] [place] n [facility] pressure Diastolic blood 2019-06-09 11:59:40 71 mm[Hg] [place] [facility] pressure Heart rate 2019-06-09 11:59:40 66 /min Barrett Ely Body temperature 2019-06-09 11:59:40 36.78 Jossie [place] [facility] Respiratory rate 2019-06-09 11:59:40 18 /min Darian Ely Oxygen saturation in 2019-06-09 11:59:40 95 /min Barrett Ely Arterial blood by Pulse oximetry Body height 2019-06-07 05:02:00 170.2 cm Barrett Ely Body weight 2019-06-07 05:02:00 117.981 kg Barrett Ely BMI 2019-06-07 05:02:00 40.74 kg/m2 Barrett Ely Procedures Procedure Date / Time Performing Source Performed Clinician CBC WITH PLATELET AND DIFFERENTIAL [facility] Chirag Garcia MAGNESIUM LEVEL [facility]06[facility] Chirag Garcia BASIC METABOLIC PANEL 2019-06-[facility] 05:20:00 Chirag Garcia B NATRIURETIC PEPTIDE 2019-06-09 [facility] 05:20:00 Chirag Garcia ESTIMATED GFR 2019-06-[facility] 05:20:00 Chirag Garcia ESOPHAGOGASTRODUODENOSCOPY (EGD) 2019-06-08 [facility] 14:47:00 Chirag Garcia SURGICAL PATHOLOGY REQUEST 2019-06-08 Jeet Major 09:18:00 M. [facility] CBC WITH PLATELET AND DIFFERENTIAL [facility] [place] 04:57:00 [place] [facility] Chamindika MAGNESIUM LEVEL 2019-06-08 [facility], [place] 04:57:00 [place] [facility] Chamindika BASIC METABOLIC PANEL 2019-06-08 [facility] [place] 04:57:00 [place] [facility] Chamindika B NATRIURETIC PEPTIDE 2019-06-08 [facility], [place] 04:57:00 [place] [facility] Chamindika ESTIMATED GFR 2019-06-08 Koffi Trivedi M. [place] 04:57:00 [facility] TROPONIN 2019-06-07 [facility] 04:13:00 M. [facility] HC COMPLETE BLD COUNT W/AUTO DIFF 2019-06-07 [facility] 04:13:00 [place] [facility] Darrionindika MAGNESIUM LEVEL 2019-06-07 [facility], [place] 04:13:00 [facility] [facility]OL[facility] 2019-06-07 [facility] 04:13:00 [place] [facility] Chamindika ESTIMATED GFR 2019-06-07 Pedrito, [facility] 04:13:00 M. [facility] TRANSFUSE RED BLOOD CELLS 2019-06-07 Jeet Major on 03:45:45 M. [facility] TRANSFUSE RED BLOOD CELLS 2019-06-07 Jeet Major on 01:34:12 M. [facility] [place] CRITICAL CARE, E/M 30-74 2019-06-06 Jesus Manuel Camacho [facility] MINUTES 21:37:32 [facility] ECG ED PRELIMINARY INTERPRETATION 2019-06-06 Kory Camacho [facility] 21:37:32 [facility] TROPONIN 2019-06-06 Pedrito, [facility] 19:45:00 M. [facility] TYPE AND SCREEN 2019-06-06 Jesus Manuel Camacho [facility] 19:45:00 [facility] PREPARE RBC 2019-06-06 Jesus Manuel Camacho [facility] 19:45:00 [facility] XR CHEST 2 VW 2019-06-06 Rehrer, [facility] 18:36:45 David [facility] HC COMPLETE BLD COUNT W/AUTO DIFF 2019-06-06 [facility], [facility] 18:14:00 David [facility] COMPREHENSIVE METABOLIC PANEL 2019-06-06 Rehrer, [facility] 18:14:00 David [facility] TROPONIN 2019-06-06 Jeet Major [facility] 18:14:00 M. [facility] B NATRIURETIC PEPTIDE 2019-06-06 [facility], [facility] 18:14:00 David [facility] PARTIAL THROMBOPLASTIN TIME (PTT) 2019-06-06 [facility] 18:14:00 David [facility] PROTHROMBIN TIME WITH INR 2019-06-06 [facility] David [facility] ESTIMATED GFR 2019-06-06 [facility], [facility] 18:14:00 David [facility] SMEAR REVIEW 2019-06-06 [facility] 18:14:00 David [facility] ECG 12-LEAD 2019-06-06 [facility] 17:40:49 David [facility] Plan of Care Planned Activity Planned Date Details Comments Source Future Scheduled 2020-02-18 INFLUENZA VACCINE [place] [facility] Test 00:00:00 [code = INFLUENZA VACCINE] Future Scheduled 2006-02-13 COLONOSCOPY SCREENING [place] [facility] Test 00:00:00 [code = COLONOSCOPY SCREENING] Future Scheduled 2006-02-13 SHINGLES VACCINES [place] [facility] Test 00:00:00 (#1) [code = SHINGLES VACCINES (#1)] Encounters Start End Encounter Admission Attending Care Care Encounter Source Date/Time Date/Time Type Type Clinicians Facility Department ID 2019-06-06 2019-06-09 Inpatient [facility]ITO [facility] [id number] 624 [place] 00:00:00 00:00:00 JEET [address] Results Test Description Test Time Test Comments Results Result Comments Source Surgical pathology request 2019-06-09 20:13:05 Test Item Value Reference Range Interpretation Comme nts Case number (test code = [id number]) [id number] Surgical pathology report (test code = See link below for PDF Lab R eport 1350) Result status (test code = 8964394) This is Final Report for [id number] [id number] [place] MethodkhadijahBasic metabolic [id number] 06:28:40 Test Item Value Reference Range Interpretation Comments Sodium (test code = 2951-2) 140 135- 148 mEq/L Potassium (test code = 2823-3) 4.1 3.5- 5.0 mEq/L Chloride (test code = 5-0) 101 98- 112 mEq/L CO2 (test code = 2027-9) 27 24- 31 mEq/L Anion gap (test code = 95473-6) 12@ANIO 7- 15 mEq/L BUN (test code = 3094-0) 11 mg/dL 8-23 Creatinine (test code = 2160-0) 1.13 mg/dL 0.7-1.2 Glucose (test code = 2345-7) 103 mg/dL 65-99 H Calcium (test code = 00051-4) 9.0 mg/dL 8.8-10.2 Lab Interpretation (test code = Abnormal 26217-2) Barrett MethodistMagnesium [id number] 06:28:39 Test Item Value Reference Range Interpretation Comments Magnesium (test code = 45744-1) 2.1 mg/dL 1.6-2.4 Barrett MethodistEstimated [id number] 06:28:38 Test Item Value Reference Range Interpretation Comments Estimated GFR (test 69 mL/min/1.73 m2 [facility] Units code = 5488) InterpretationG 1 >=90 Normal or highG2 60-89 Mildly yyoggqbdvW8y 45-59 Mildly to mode rately iggqxweplL9h 30-44 Moderately to severely decreasedG4 15-29 Severely decre asedG5 <15 Kidn ey failureThe eGFR was calculated usrudi g the Chronic Kidney Disease Epidemiology Co llaboration (CKD-EPI) equat ion. Interpretation is based on recommendations of the National Kidney Foundation-Kidn ey Disease Outcomes Qualit y Initiative (NKF-KDOQI) pub lished in 2014. Barrett ElyB natriuretic [id number] 06:23:25 Test Item Value Reference Range Interpretation Comments BNP (test code = 52836-0) 30 pg/mL 0-100 Barrett ElyCBC with platelet and [id number] 06:16:50 Test Item Value Reference Range Interpretation Comments WBC (test code = 30109-3) 3.92 4.50- 11.00 k/uL L RBC (test code = 95279-9) 2.56 m/uL 4.4-6 L HGB (test code = 718-7) 8.0 g/dL 14-18 L HCT (test code = 4544-3) 25.5 % 41-51 L MCV (test code = 787-2) 99.6 fL 82-100 MCH (test code = 785-6) 31.3 pg 27-34 MCHC (test code = 786-4) 31.4 g/dL 31-37 RDW - SD (test code = 58.3 fL 37-55 H 11074-3) MPV (test code = 90292-8) 9.8 fL 8.8-13.2 Platelet count (test code 320 150- 400 k/uL = 59618-0) Nucleated RBC (test code 0.50 /100 WBC = 78023-1) Neutrophils (test code = 60.2 % 39-69 81900-5) Lymphocytes (test code = 27.6 % 25-45 27748-0) Monocytes (test code = 8.4 % 0-10 94565-8) Eosinophils (test code = 2.0 % 0-5 48627-4) Basophils (test code = 0.8 % 0-1 75302-8) Immature granulocytes 1.0 % 0-1 "Immat ure (test code = 20535-6) granul ocytes" (promyelocytes, myelocytes, metamyelocytes) Lab Interpretation (test Abnormal code = 24298-9) Barrett Lozada 12 [id number] 21:07:24 Test Item Value Reference Range Interpretation Comments Ventricular rate (test 70 code = 253) Atrial rate (test code 89 = 255) QRSD interval (test 142 code = 260) QT interval (test code 454 = 264) QTC interval (test code 490 = 265) QRS axis 1 (test code = -39 268) T wave axis (test code 26 = 270) EKG impression (test Normal sinus code = 273) rhythm-Left axis deviation-Right bundle branch block-Inferior infarct , age undetermined-Abnormal ECG-In automated comparison with ECG of 16-JUN-2018 21:58,-Wide QRS rhythm has replaced Sinus rhythm- Barrett [id number] 05:04:43 Test Item Value Reference Range Interpretation Comments Troponin (test code = <0.006 0-0.04 [place] [facility] 95931-6) Laboratories ch anged methodology eff ective: 11/23/2018 at 10: 00 amThe new method has a 99th percentile cuto ff of 0.040 ng/mL Barrett ElyPrepare RBC, 2 [id number] 01:49:00 Test Item Value Reference Range Interpretation Comments Product name (test code Apher Red Cell AS3 #2 = 25) LR/IRR Unit number (test code [id number] = [id number]) Product code (test code R3073U52 = 3092) Dispense status (test Transfused code = 24) Blood expiration date (test code = 302) Blood type code (test 9500 code = 308) Blood type (test code = O NEGATIVE 1314) Compatibility (test Compatible code = 6400) [facility] MethodistSmear [id number] 21:48:38 Test Item Value Reference Range Interpretation Comments Platelet slide review (test code [place] adequate = 67652-0) Anisocytosis (test code = 702-1) Moderate Polychromasia (test code = Moderate 01154-7) Spherocytes (test code = 802-9) Occasional Enlarged platelets (test code = Moderate A 36940-2) Lab Interpretation (test code = Abnormal 77872-7) [facility] ED Preliminary Interpretation - Not an [id number] 21:37:32 Test Item Value Reference Range Interpretation Comments CLIFF (test code = CLIFF) Gerard Crowder DO 06/07/2019 12:03 [facility] [place] Preliminary Interpretation - Not an OrderPerformed by: Jesus Manuel Camacho NP-CAuthorized by: Gerard Crowder DO ECG reviewed by ED Physician in the absence of a salon shampoo assistant: yes Previous ECG: Previous ECG: Compared to currentInterpretation: Interpretation: abnormal Rate: ECG rate: 70QRS: QRS intervals: WideConduction: Conduction: abnormal Abnormal conduction: complete RBBB Other findings: Other findings: LAE Lab Interpretation Abnormal (test code = 42589-2) [facility] [id number] 21:37:32Gerard Crowder DO 06/07/2019 12:03 PMCritical CarePerformed by: Jesus Manuel Camacho NP-CAuthorized by: Gerard Crowder DO Critical care provider statement: Critical care time (minutes):35 Critical care was necessary to treat or prevent imminent or life-threatening deterioration of the following conditions: Cardiac failure (GI bleed needing emergent transfusion ) Critical care was time spent personally by me on the following activities: Development of treatment plan with patient or surrogate, discussions with consultants, evaluation of patient's response to treatment, examination of patient, obtaining history from patient or surrogate, ordering and performing treatments and interventions, ordering and review of laboratory studies, ordering and review of radiographic studies, pulse oximetry, re-evaluation of patient's condition and review of old charts Abdelrahman 'yes' if you are taking over critical care for this patient from another provider.: no Comments: The patient is critically ill due to but not limited to: ongoing respiratory failure, high risk for respiratory failure, hemodynamic or metabolic deterioration, altered mental status, and acute organ failure. The patientis requiring frequent assessment, treatment, life-saving devices, and prevention and management of life threatening conditions.Hyde MethodistType and screen 2019-06-06 21:28:00 Test Item Value Reference Range Interpretation Comments ABO grouping (test code = 883-9) O Rh type (test code = 30250-8) NEG Antibody screen (gel) (test code = NEG 890-4) [facility] MethodistComprehensive metabolic [id number] 18:52:47 Test Item Value Reference Range Interpretation Comments Sodium (test code = 139 135- 148 mEq/L 2951-2) Potassium (test code = 4.5 3.5- 5.0 mEq/L 2823-3) Chloride (test code = 104 98- 112 mEq/L 2075-0) CO2 (test code = 8-9) 24 24- 31 mEq/L Anion gap (test code = 11@ANIO 7- 15 mEq/L 97595-4) BUN (test code = 3094-0) 27 mg/dL 8-23 H Creatinine (test code = 1.33 mg/dL 0.7-1.2 H 2160-0) Glucose (test code = 114 mg/dL 65-99 H 2345-7) Calcium (test code = 9.0 mg/dL 8.8-10.2 60298-5) Protein (test code = 6.5 g/dL 6.3-8.3 9994.6-7.0 2885-2) g/dL1 secg2213.4-7.6 g/dL7 months-6meci193 .1- 7.3 g/dL1-2 qyejd503.6-7.5 g/dL>3 sgusm169.0-8.0 g/xQ44-8989513. 3-8 .3 g/dL Albumin (test code = 3.1 g/dL 3.5-5 L 1751-7) A/G ratio (test code = 0.9 0.7-3.8 1759-0) Alkaline phosphatase 61 U/L 40-129 (test code = 6768-6) AST (test code = 1920-8) 22 U/L 10-50 ALT (test code = 1742-6) 30 U/L 5-50 Total bilirubin (test <0.2 0-1.2 code = 1975-2) Lab Interpretation (test Abnormal code = 45352-3) Barrett MethodistPartial thromboplastin time, [id number] 18:48:24 Test Item Value Reference Range Interpretation Comments PTT (test code = 26.9 23.0- 36.0 [place] [address]-6) unfractionated heparin is61.0-112.0 se conds which corresponds to Anti-Xa0.3-0.7 U/ml. Barrett MethodistProthrombin time with [id number] 18:48:20 Test Item Value Reference Range Interpretation Comments Prothrombin time (test 13.9 11.5- 14.5 sec code = 5902-2) INR (test code = 1.1 The Interna tional 42398-9) Normalized Rati o (INR) is a therapeutic m onitoring tool for patien ts who are stable on oral anticoagulant t herapy. An INR of 2.0-3.0 is suggested for d eep vein thrombosis/pulm onary embolism. Barrett MethodistXR Chest 2 [id number] 18:40:01Hm Interface, Radiology Results 06/06/2019 6:43 PM CSTEXAMINATION: XR CHEST 2 VWCLINICAL HISTORY: Chest PainCOMPARISON: June 16IMPRESSION:The cardiomediastinal silhouette and centralvasculature are within normal limits. Atherosclerotic calcifications in the thoracic aorta which is tortuous.The lungs are clear.Degenerative changes in the spine.[facility]-[id number] Adventism
[2020-02-03] MEDS ORDERED: ACETAMINOPHEN 500 MG TAB ONE (22:45)
[2020-02-03] MEDS ORDERED: NA CHLORIDE 0.9% 1,000 ML ONE (22:45)
[2020-02-03 23:05] LABS: Urine Blood 2+ (NEG); Urine Glucose NEGATIVE (NEG); Urine Protein 3+ (NEG); Urine Specific Gravity >1.030 (1.005-1.030)
[2020-02-03 23:18] LABS: Urine Amorphous Sediment 2+ /HPF (NONE SEEN); Urine Bacteria >50 /HPF (NONE SEEN); Urine Culture Reflex Order NOT NEEDED; Urine Mucus 3+ /HPF (NONE SEEN)
[2020-02-03 23:23] LABS: Absolute Lymphocytes (CBC) 0.2 K/uL (0.7-4.9)
[2020-02-03] MEDS ORDERED: NA CHLORIDE 0.9% 3,000 ML ONE (23:29)
[2020-02-03] MEDS ORDERED: IBUPROFEN 400 MG TAB ONE (23:29)
[2020-02-03 23:34] LABS: Basophils % 0.7 % (0-1.3); Hematocrit 33.7 % (39.6-49.0); Lymphocytes % 11.8 % (15.3-44.8); MPV 8.7 fL (7.6-11.3); RBC Red Blood Cell Count 3.62 M/uL (4.33-5.43)
[2020-02-03 23:50] LABS: Blood Morphology Comment NOT SEEN (NOT SEEN); Platelet Estimate ADEQ; Platelets, Giant FEW
[2020-02-04 00:01] LABS: Albumin 3.3 g/dL (3.4-5.0); Bilirubin Direct 0.4 mg/dL (0-0.2); Bilirubin Total 1.1 mg/dL (0.2-1.0); Potassium 4.1 mmol/L (3.5-5.1); Protein, Total 7.5 g/dL (6.4-8.2); Troponin (Emerg Dept Use Only) 0.1 ng/mL (0.0-0.045)
[2020-02-04 00:10] LABS: Protime INR 1.17
[2020-02-04] MEDS ORDERED: IPRATROPIUM BROM 0.5MG/2.5ML ONE (00:18)
[2020-02-04] MEDS ORDERED: METHYLPREDNISOLONE 125 MG INJ ONE (00:18)
[2020-02-04] MEDS ORDERED: ALBUTEROL 2.5 MG/3 ML NEB SOL ONE (00:19)
--- NOTE | 2020-02-04 00:23 | EDPHYS ---
Physician Documentation [facility] Name: Duke Leon Age: 64 yrs Sex: Male : 1955 Arrival Date: 02/03/2020 Time: 22:09 Bed 7 Private MD: ED Physician Brady Chaney HPI: 02/02 23:56 This 64 yrs old Male presents to ER via Ambulatory with complaints of Pain jr8 With Urination, Shortness Of Breath. 23:56 The patient reports fever, with an emergency department temperature of 103.1 degrees jr8 Fahrenheit. Onset: The symptoms/episode began/occurred acutely, today. Modifying factors: there are no obvious modifying factors. Associated signs and symptoms: Pertinent positives: cough, shortness of breath, dysuria. Severity of symptoms: At their worst the symptoms were moderate in the emergency department the symptoms are unchanged. The patient has experienced a previous episode. The patient has not recently seen a physician. Patient stated that he woke up this morning having burning with urination. Stated that this evening started with chills and shortness of breath. Patient presented to ED with 103.1 fever . Historical: - Allergies: 22:18 No Known Drug Allergies; ll1 - PMHx: 22:18 Right eye prosthetic; Hypertension; COPD; ll1 - PSHx: 22:18 Hernia repair; ll1 - Immunization history:: Flu vaccine is not up to date. - Social history:: Smoking status: Patient/guardian denies using tobacco, the patient reports quitting approximately 5 years ago, Patient/guardian denies using alcohol, street drugs. ROS: 23:56 Eyes: Negative for injury, pain, redness, and discharge, ENT: Negative for injury, jr8 pain, and discharge, Neck: Negative for injury, pain, and swelling, Cardiovascular: Negative for chest pain, palpitations, and edema, Abdomen/GI: Negative for abdominal pain, nausea, vomiting, diarrhea, and constipation, Back: Negative for injury and pain, MS/Extremity: Negative for injury and deformity, Skin: Negative for injury, rash, and discoloration, Neuro: Negative for headache, weakness, numbness, tingling, and seizure. 23:56 Respiratory: Positive for cough, shortness of breath. 23:56 : Positive for urinary symptoms, burning with urination. Exam: 23:56 Eyes: Pupils equal round and reactive to light, extra-ocular motions intact. Lids and jr8 lashes normal. Conjunctiva and sclera are non-icteric and not injected. Cornea within normal limits. Periorbital areas with no swelling, redness, or edema. ENT: Nares patent. No nasal discharge, no septal abnormalities noted. Tympanic membranes are normal and external auditory canals are clear. Oropharynx with no redness, swelling, or masses, exudates, or evidence of obstruction, uvula midline. Mucous membranes moist. Neck: Trachea midline, no thyromegaly or masses palpated, and no cervical lymphadenopathy. Supple, full range of motion without nuchal rigidity, or vertebral point tenderness. No Meningismus. Cardiovascular: Tachycardic with a normal S1 and S2. No gallops, murmurs, or rubs. Normal PMI, no JVD. No pulse deficits. Abdomen/GI: Soft, non-tender, with normal bowel sounds. No distension or tympany. No guarding or rebound. No evidence of tenderness throughout. Back: No spinal tenderness. No costovertebral tenderness. Full range of motion. Skin: Warm, dry with normal turgor. Normal color with no rashes, no lesions, and no evidence of cellulitis. MS/ Extremity: Pulses equal, no cyanosis. Neurovascular intact. Full, normal range of motion. Neuro: Awake and alert, GCS 15, oriented to person, place, time, and situation. Cranial nerves II-XII grossly intact. Motor strength 5/5 in all extremities. Sensory grossly intact. Cerebellar exam normal. Normal gait. 23:56 ECG was reviewed by the Attending Physician. 23:56 Respiratory: the patient does not display signs of respiratory distress, Respirations: tachypnea, that is mild, Breath sounds: are clear throughout. Vital Signs: 22:15 BP 166 / 66; Pulse 93; Resp 28; Temp 103.1; Pulse Ox 90% ; Pain 7/10; ll1 22:27 Weight 124.74 kg; mw2 07 00:00 BP 115 / 54; Pulse 93; Resp 20; Pulse Ox 100% on 2 lpm NC; wh 00:11 BP 115 / 54; Pulse 91; Resp 28; Pulse Ox 96% ; ea 01:00 BP 114 / 59; Pulse 87; Resp 20; Temp 100.8; Pulse Ox 95% on 2 lpm NC; 02:21 BP 108 / 48; Pulse 81; Resp 20; Pulse Ox 97% on 2 lpm NC; MDM: 02/02 22:26 Patient medically screened. [facility] 02/03 00:09 Data reviewed: vital signs, nurses notes, lab test result(s), EKG, radiologic studies, [facility] plain films. Data interpreted: Pulse oximetry: on room air is 90 %. Interpretation: borderline. Counseling: I had a detailed discussion with the patient and/or guardian regarding: the historical points, exam findings, and any diagnostic results supporting the discharge/admit diagnosis, lab results, radiology results, the need for further work-up and treatment in the hospital. Response to treatment: the patient's symptoms have mildly improved after treatment. 02/02 22:25 Order name: Urine Culture [facility] 02/02 22:25 Order name: Fibrinogen [facility] 02/02 22:25 Order name: C-Reactive Protein; Complete Time: 00:08 [facility] 02/02 22:25 Order name: Basic Metabolic Panel [facility] 02/02 22:25 Order name: Blood Culture Adult (2) [facility] 02/02 22:25 Order name: CBC with Diff; Complete Time: 23:55 [facility] 02/02 22:25 Order name: CPK [facility] 02/02 22:25 Order name: Lactate; Complete Time: 23:30 [facility] 02/02 22:25 Order name: LFT's; Complete Time: 00:08 [facility] 02/02 22:25 Order name: Lipase; Complete Time: 00:08 [facility] 02/02 22:25 Order name: Procalcitonin; Complete Time: 00:08 [facility] 02/02 22:25 Order name: Protime (+inr); Complete Time: 00:30 [facility] 02/02 22:25 Order name: Ptt, Activated; Complete Time: 00:30 [facility] 02/02 22:25 Order name: Troponin (emerg Dept Use Only); Complete Time: 00:08 [facility] 02/02 22:25 Order name: Urine Microscopic Only; Complete Time: 23:27 [facility] 02/02 22:25 Order name: Chest Single View XRAY [facility] 02/02 22:25 Order name: COVID-19 [facility] 02/02 22:26 Order name: Urine Culture [facility] 02/02 22:26 Order name: Fibrinogen; Complete Time: 00:30 [facility] 02/02 22:26 Order name: Basic Metabolic Panel; Complete Time: 00:08 [facility] 02/02 22:26 Order name: Creatine Phosphokinase; Complete Time: 00:08 [facility] 02/02 23:01 Order name: Urine Dipstick--Ancillary (enter results); Complete Time: 23:10 02/02 23:17 Order name: Glucose, Ancillary Testing; Complete Time: 23:27 [facility] 02/02 23:39 Order name: Manual Differential; Complete Time: 23:55 [facility] 02/03 02:55 Order name: Lactate Sepsis 2 HR Follow-up [facility] 02/02 22:25 Order name: Accucheck; Complete Time: 22:54 [facility] 02/02 22:25 Order name: Cardiac monitoring; Complete Time: 22:54 [facility] 02/02 22:25 Order name: EKG - Nurse/Tech; Complete Time: 22:54 [facility] 02/02 22:25 Order name: IV Saline Lock - Large Bore; Complete Time: 22:54 [facility] 02/02 22:25 Order name: Labs collected and sent; Complete Time: 22:55 [facility] 02/02 22:25 Order name: O2 Per Protocol; Complete Time: 22:55 [facility] 02/02 22:25 Order name: O2 Sat Monitoring; Complete Time: 22:55 [facility] 02/02 22:25 Order name: Urine Dipstick-Ancillary (obtain specimen); Complete Time: 22:55 [facility] 02/03 02:04 Order name: CONS Pharmacy Consult [facility] 02/03 02:04 Order name: [facility] EC/17 23:56 Rate is 101 beats/min. Rhythm is regular, Sinus tachycardia. Extreme Right axis jr8 deviation noted. CO interval is normal at 152 msec. QRS interval is prolonged at 140 msec. QT interval is normal at 396 msec. No Q waves. T waves are Normal. No ST changes noted. Clinical impression: Sinus tachycardia. Interpreted by me. Reviewed by me. Administered Medications: Discontinued: NS 0.9% 1000 ml IV at 1000 ml once 22:51 Drug: NS 0.9% 1000 ml Route: IV; Rate: 1000 ml; Site: right antecubital; 02/03 01:06 Follow up: Response: No adverse reaction; IV Status: Order to discontinue infusion 02/02 22:51 Drug: Cefepime 2 grams Route: IVPB; Rate: 200 ml/hr; Infused Over: 30 mins; Site: right antecubital; 02/03 01:06 Follow up: Response: No adverse reaction; IV Status: Completed infusion 02/02 23:20 Drug: SOLU-Medrol 125 mg Route: IVP; Site: right antecubital; 02/03 01:06 Follow up: Response: No adverse reaction 02/02 23:20 Drug: Albuterol - atroVENT (3:1) (2.5 mg - 0.5 mg) 3 ml Route: Nebulizer; 02/03 01:06 Follow up: Response: No adverse reaction 02/02 23:27 Drug: Motrin 400 mg Route: PO; 02/03 01:06 Follow up: Response: No adverse reaction; Temperature is decreased 02/02 23:27 Drug: NS 0.9% (30 ml/kg) 30 ml/kg Route: IV; Rate: bolus; Site: right antecubital; 02/03 01:06 Follow up: Response: No adverse reaction; IV Status: Completed infusion 00:45 Drug: Acetaminophen 1000 mg Route: PO; 01:07 Follow up: Response: No adverse reaction Disposition: :18 Co-signature as Attending Physician, Brady Chaney MD. [facility] Disposition: 02/04/20 00:22 Hospitalization ordered by Du Anderson for Inpatient Admission. Preliminary diagnosis are Severe sepsis without septic shock, Urinary tract infection, site not specified, Chronic obstructive pulmonary disease with (acute) exacerbation. - Bed requested for Telemetry/MedSurg (Inpatient). - Status is Inpatient Admission. - Condition is Fair. - Problem is new. - Symptoms have improved. Signatures: Dispatcher [employer] EDMS Lynne Torres RN RN mw Lam, Pin, MD MD pkl Ruben Arriaga PA PA jr8 Juana Galeas Sarita Andrew RN RN ll1 Corrections: (The following items were deleted from the chart) 00:22 00:22 Hospitalization Ordered by Du Anderson MD for Inpatient Admission. Preliminary jr8 diagnosis is Severe sepsis without septic shock; Urinary tract infection, site not specified. Bed requested for Telemetry/MedSurg (Inpatient). Status is Inpatient Admission. Condition is Fair. Problem is new. Symptoms have improved. jr8 00:39 00:22 02/04/2020 00:22 Hospitalization Ordered by Du Anderson MD for Inpatient mw Admission. Preliminary diagnosis is Severe sepsis without septic shock; Urinary tract infection, site not specified; Chronic obstructive pulmonary disease with (acute) exacerbation. Bed requested for Telemetry/MedSurg (Inpatient). Status is Inpatient Admission. Condition is Fair. Problem is new. Symptoms have improved. jr8 02:56 00:39 02/04/2020 00:22 Hospitalization Ordered by Du Anderson MD for Inpatient Admission. Preliminary diagnosis is Severe sepsis without septic shock; Urinary tract infection, site not specified; Chronic obstructive pulmonary disease with (acute) exacerbation. Bed requested for Telemetry/MedSurg (Inpatient). Status is Inpatient Admission. Condition is Fair. Problem is new. Symptoms have improved. mw
--- NOTE | 2020-02-04 00:23 | ER ---
Nurse's Notes [facility] Name: Duke Leon Age: 64 yrs Sex: Male : 1955 Arrival Date: 02/03/2020 Time: 22:09 Bed 7 Private MD: Diagnosis: Severe sepsis without septic shock;Urinary tract infection, site not specified;Chronic obstructive pulmonary disease with (acute) exacerbation Presentation: 02/02 22:15 Chief complaint: Patient states: Painful urination for 2 days. SOB worse at night for ll1 past two nights. Tachypnea noted. Coronavirus screen: Patient reports a cough. Patient reports shortness of breath or difficulty breathing. Patient denies measured and/or subjective temperature greater than 100.4F prior to today's visit. Patient denies travel on a cruise ship or to a country the [facility] currently lists as an affected area. Patient denies contact with known and/or suspected case of COVID-19. Patient instructed to continue to wear a mask when interacting with others. Patient moved to private room, placed in contact and droplet isolation with eye protection until further assessment. Ebola Screen: Patient denies travel to an Ebola-affected area in the 21 days before illness onset. Initial Sepsis Screen: Does the patient meet any 2 criteria? RR > 20 per min. HR > 90 bpm. Yes Does the patient have a suspected source of infection? Yes: Productive cough/pneumonia. Risk Assessment: Do you want to hurt yourself or someone else? Patient reports no desire to harm self or others. Onset of symptoms was February 02, 2020. 22:15 Method Of Arrival: Ambulatory ll1 22:15 Acuity: NATALIE 2 ll1 Historical: - Allergies: 22:18 No Known Drug Allergies; ll1 - PMHx: 22:18 Right eye prosthetic; Hypertension; COPD; ll1 - PSHx: 22:18 Hernia repair; ll1 - Immunization history:: Flu vaccine is not up to date. - Social history:: Smoking status: Patient/guardian denies using tobacco, the patient reports quitting approximately 5 years ago, Patient/guardian denies using alcohol, street drugs. Screenin/18 00:11 Abuse screen: Denies threats or abuse. Nutritional screening: No deficits noted. ea Tuberculosis screening: No symptoms or risk factors identified. Fall Risk IV access (20 points). Assessment: 02/02 22:30 General: Appears in no apparent distress. Behavior is calm, cooperative, appropriate wh for age. Pain:. Pain: Complains of pain in with urination Quality of pain is described as burning. Neuro: Level of Consciousness is awake, alert, obeys commands, Oriented to person, place, time, situation, Appropriate for age. Cardiovascular: Heart tones S1 S2 Rhythm is sinus tachycardia. Respiratory: Airway is patent Respiratory effort is even, unlabored, Respiratory pattern is tachypnea Breath sounds are clear Breath sounds are diminished. GI: Abdomen is flat, non-distended. : Reports burning with urination. EENT: No signs and/or symptoms were reported regarding the EENT system. Derm: Skin is intact, is healthy with good turgor, Skin is pink, warm \T\ dry. normal. Musculoskeletal: Circulation, motion, and sensation intact. 02/03 00:00 Reassessment: Patient appears in no apparent distress at this time. No changes from previously documented assessment. Patient and/or family updated on plan of care and expected duration. Pain level reassessed. Patient is alert, oriented x 3, equal unlabored respirations, skin warm/dry/pink. 01:00 Reassessment: Patient appears in no apparent distress at this time. No changes from previously documented assessment. Patient and/or family updated on plan of care and expected duration. Pain level reassessed. Patient is alert, oriented x 3, equal unlabored respirations, skin warm/dry/pink. 02:20 Reassessment: Patient appears in no apparent distress at this time. No changes from previously documented assessment. Patient and/or family updated on plan of care and expected duration. Pain level reassessed. Patient is alert, oriented x 3, equal unlabored respirations, skin warm/dry/pink. Vital Signs: 02/02 22:15 BP 166 / 66; Pulse 93; Resp 28; Temp 103.1; Pulse Ox 90% ; Pain 7/10; ll1 22:27 Weight 124.74 kg; mw2 02/03 00:00 BP 115 / 54; Pulse 93; Resp 20; Pulse Ox 100% on 2 lpm NC; wh 00:11 BP 115 / 54; Pulse 91; Resp 28; Pulse Ox 96% ; ea 01:00 BP 114 / 59; Pulse 87; Resp 20; Temp 100.8; Pulse Ox 95% on 2 lpm NC; 02:21 BP 108 / 48; Pulse 81; Resp 20; Pulse Ox 97% on 2 lpm NC; ED Course: 02/02 22:09 Patient arrived in ED. ag3 22:17 Triage completed. ll1 22:18 Arm band placed on Patient placed in an exam room, on a stretcher. ll1 22:24 Juana Galeas is Primary Nurse. 22:24 Ruben Arriaga PA is PHCP. jr8 22:24 Brady Chaney MD is Attending Physician. jr8 23:30 Notified Nurse Practitioner and/or Physician [employer] of a critical lab result(s), LAC sg 3.7. 23:37 Chest Single View XRAY In Process Unspecified. EDMS 23:39 Notified Nurse Practitioner and/or Physician [employer] of a critical lab result(s), WBC sg 1.8. 23:52 Notified Nurse Practitioner and/or Physician [employer] of a critical lab result(s), sg Band 14. 02/03 00:11 Patient has correct armband on for positive identification. Placed in gown. Bed in low ea position. Call light in reach. Side rails up X 1. site monitor on. Pulse ox on. NIBP on. 00:22 Du Anderson MD is Hospitalizing Provider. jr8 02:21 No provider procedures requiring assistance completed. Patient admitted, IV remains in place. Administered Medications: Discontinued: NS 0.9% 1000 ml IV at 1000 ml once 02/02 22:51 Drug: NS 0.9% 1000 ml Route: IV; Rate: 1000 ml; Site: right antecubital; 02/03 01:06 Follow up: Response: No adverse reaction; IV Status: Order to discontinue infusion 02/02 22:51 Drug: Cefepime 2 grams Route: IVPB; Rate: 200 ml/hr; Infused Over: 30 mins; Site: right antecubital; 02/03 01:06 Follow up: Response: No adverse reaction; IV Status: Completed infusion 02/02 23:20 Drug: SOLU-Medrol 125 mg Route: IVP; Site: right antecubital; 02/03 01:06 Follow up: Response: No adverse reaction 02/02 23:20 Drug: Albuterol - atroVENT (3:1) (2.5 mg - 0.5 mg) 3 ml Route: Nebulizer; 02/03 01:06 Follow up: Response: No adverse reaction 02/02 23:27 Drug: Motrin 400 mg Route: PO; 02/03 01:06 Follow up: Response: No adverse reaction; Temperature is decreased 02/02 23:27 Drug: NS 0.9% (30 ml/kg) 30 ml/kg Route: IV; Rate: bolus; Site: right antecubital; 02/03 01:06 Follow up: Response: No adverse reaction; IV Status: Completed infusion 00:45 Drug: Acetaminophen 1000 mg Route: PO; 01:07 Follow up: Response: No adverse reaction Outcome: 00:22 Decision to Hospitalize by Provider. jr8 02:21 Admitted to [facility] accompanied by [facility], via wheelchair, room 402, with chart, Report called to Eloy Linder RN 02:21 Condition: stable 02:21 Instructed on the need for admit. 02:56 Patient left the ED. Signatures: Dispatcher [employer] EDMS Jeb Ortiz, RN RN Ruben Desai PA PA jr8 Jenni Cunningham, RN Juana Russell ea Raheel Benoit mw2 Meli Maldonado 3 Sarita Andrew, RN RN ll1 Corrections: (The following items were deleted from the chart) 02/02 23:40 23:39 Notified Nurse Practitioner and/or Physician [employer] of a critical lab result(s), WBC 1.7 02/03 02:23 02:21 Admitted to [facility] 02:56 01:00 BP 114 / 59; Pulse 87bpm; Resp 20bpm; Pulse Ox 95% 2 lpm Nasal Cannula; [facility]
[2020-02-04] MEDS ORDERED: MORPHINE 4 MG/ML SYR IV PRN (01:58)
[2020-02-04] MEDS ORDERED: ONDANSETRON 4 MG/2 ML VIAL IV PRN (01:58)
[2020-02-04] MEDS ORDERED: ACETAMINOPHEN 500 MG TAB PO PRN (01:58)
[2020-02-04] MEDS ORDERED: NA CHLORIDE 0.9% 1,000 ML IV SCH (02:00)
[2020-02-04] MEDS ORDERED: NA CHLORIDE 0.9% 500 ML IV ONE (03:52)
[2020-02-04 03:56] VITALS: BMI 45.1
--- NOTE | 2020-02-04 03:56 | P.HP ---
Certification for Inpatient Patient admitted to: Inpatient With expected LOS: >2 Midnights Patient will require the following post-hospital care: None Practitioner: I am a practitioner with admitting privileges, knowledge of patient current condition, hospital course, and medical plan of care. Services: Services provided to patient in accordance with Admission requirements found in Title 42 Section 412.3 of the Code of Federal Regulations Patient History Date of Service: 02/04/20 Reason for admission: FEVER; DYSURIA History of Present Illness: PATIENT IS A 64-YEAR-OLD GENTLEMAN CAME TO THE HOSPITAL WITH FEVER AND DYSURIA. PATIENT'S SYMPTOMS WERE VERY PAINFUL ANY CAME INTO THE HOSPITAL FOR FURTHER EVALUATION. IN THE EMERGENCY ROOM, PATIENT'S SYMPTOMS WERE EVALUATED. BECAUSE HIS FEVER THEY WANTED TO RULE HIM OUT FOR COVID PNEUMONIA. HE ALSO HAS A HISTORY OF COPD. PATIENT ALSO HAS A LARGE HIATAL HERNIA THAT MUST BEEN REPAIRED IN THE PAST. AT THIS TIME, HE WILL BE TREATED FOR SEVERE URINARY TRACT INFECTION WITH SEPSIS. Allergies No Known Drug Allergies Allergy (Unverified 06/30/14 16:39) Unknown No Known Allerg Allergy (Uncoded 02/04/17 23:31) Unknown Home Medications: Cetirizine HCl [Zyrtec*] 5 mg PO DAILY 06/30/14 Codeine/APAP [Tylenol W/Codeine #3 tab] 1 tab PO Q6HP PRN #20 tab 07/01/14 Guaifen W/Codeine Syrup [ROBITUSSIN A-C Syrup] 10 ml PO BID PRN #150 ml 07/01/14 Levofloxacin [Levaquin] 500 mg PO DAILY #5 tablet 07/01/14 Omeprazole Magnesium [Prilosec Otc] 20 mg PO DAILY #30 tablet. 07/01/14 predniSONE [Deltasone] 20 mg PO BID #15 tab 07/01/14 - Past Medical/Surgical History Diabetic: No -: Tobacco abuse -: HIATAL HERNIA -: COPD -: HYPERTENSION -: R eye surgery - Family History Mother Medical History: Hypertension Brother Medical History: Heart disease - Social History Smoking Status: Former smoker Alcohol use: No CD- Drugs: No Caffeine use: Yes Review of Systems 10-point ROS is otherwise unremarkable Physical Examination - Vital Signs Temperature: 98.6 F Blood Pressure: 104/59 Pulse: 91 Respirations: 15 Pulse Ox (%): 96 - Physical Exam General: Alert, In no apparent distress, Oriented x3 HEENT: Atraumatic, PERRLA, Mucous membr. moist/pink, EOMI, Sclerae nonicteric Neck: Supple, 2+ carotid pulse no bruit, No LAD, Without JVD or thyroid abnormality Respiratory: Diminished, Expiratory wheezes Cardiovascular: Regular rate/rhythm, Normal S1 S2, Systolic murmur Gastrointestinal: Normal bowel sounds, Soft and benign, Non-distended, No tenderness Musculoskeletal: No clubbing, No swelling, No tenderness, Swelling Integumentary: No rashes Neurological: Normal gait, Normal speech, Normal strength at 5/5 x4 extr, Normal tone, Sensation intact, Cranial nerves 3-12 intact, Normal affect Lymphatics: No axilla or inguinal lymphadenopathy - Studies Laboratory Data (last 24 hrs) 02/03/20 20:35: WBC 1.8 L*, Hgb 11.7 L, Hct 33.7 L, Plt Count 120 L 02/03/20 20:35: Sodium 139, Potassium 4.1, BUN 34 H, Creatinine 1.63 H, Glucose 147 H, Total Bilirubin 1.1 H, AST 74 H, ALT 65, Alkaline Phosphatase 61, Lipase 100 02/03/20 20:35: PT 13.8 H, INR 1.17, APTT 28.9 Assessment & Plan - Problems (Diagnosis) (1) Acute UTI Current Visit: Yes Status: Acute (2) Sepsis Current Visit: Yes Status: Acute (3) Elevated procalcitonin Current Visit: Yes Status: Acute (4) History of COPD Current Visit: Yes Status: Acute (5) History of hiatal hernia Current Visit: Yes Status: Acute (6) Fever Current Visit: Yes Status: Acute (7) Leukopenia Current Visit: Yes Status: Acute - Plan 1. Continue with IV hydration 2. Continue with IV antibiotics 3. Continue with pain control 4. Rule out for COVID pneumonia 5. Renal ultrasound 6. Serial H&H, and we will monitor CBC, BMP, LFTs and lipase along with electrolytes. 7. Monitor white blood cell count closely 8. GI and DVT prophylaxis Discharge Plan: Home Plan to discharge in: Greater than 2 days - Advance Directives Does patient have a Living Will: No Does patient have a Durable POA for Healthcare: No - Code Status/Comfort Care Code Status Assessed: Yes Code Status: Full Code Critical Care: No Time Spent Managing PTS Care (In Minutes): 45
[2020-02-04] MEDS ORDERED: dexAMETHasone 10 MG/ML VIAL IV SCH (06:00)
[2020-02-04] MEDS: PANTOPRAZOLE 40MG TABLET PO SCH ×2 (07:37→17:35)
[2020-02-04] MEDS: CEFTRIAXONE/SWI 1gm 1 GM/10 ML SYR IVP SCH ×2 (07:38→20:58)
[2020-02-04] MEDS: NA CHLORIDE 0.9% 1,000 ML IV SCH ×2 (07:39→15:20)
[2020-02-04] MEDS ORDERED: CEFTRIAXONE 1 GM/NS 50 ML 1 GM/50 ML BAG IV SCH (09:00)
--- NOTE | 2020-02-04 11:00 | RAD REPORT ---
EXAM DESCRIPTION: Navneet Single View02/03/2020 11:36 pm CLINICAL HISTORY: fever COMPARISON: 2013 FINDINGS: The lungs appear clear of acute infiltrate. The heart is mildly enlarged IMPRESSION: No acute abnormalities displayed
[2020-02-04] MEDS: dexAMETHasone 4 MG/ML VIAL IV SCH ×2 (11:05→17:35)
[2020-02-05] MEDS: dexAMETHasone 4 MG/ML VIAL IV SCH (00:13)
[2020-02-05] MEDS ORDERED: HYDROCODONE/APAP 10/325 TAB PO ONE (00:25)
--- NOTE | 2020-02-05 05:38 | P.PN ---
Subjective Date of Service: 02/05/20 Subjective: Improving, Doing well Patient is improving with no new complaints. Continues to do better. May be able to discharge home today if remains afebrile and labs are improved; patient's labs are improved. Procalcitonin is improved as well. Urine cultures positive for gram-negative rods. Appreciate Cardiology input. Echocardiogram pending in the morning. Anticipate discharge home tomorrow Review of Systems 10-point ROS is otherwise unremarkable Physical Examination - Vital Signs Temperature: 96.9 F Blood Pressure: 124/61 Pulse: 66 Respirations: 23 Pulse Ox (%): 96 - Physical Exam General: Alert, In no apparent distress, Oriented x3 Respiratory: Clear to auscultation bilaterally, Normal air movement Cardiovascular: Regular rate/rhythm, Normal S1 S2, No murmurs Gastrointestinal: Normal bowel sounds, No tenderness Musculoskeletal: No tenderness Integumentary: No rashes Neurological: Normal speech, Normal tone, Normal affect Lymphatics: No axilla or inguinal lymphadenopathy - Studies Medications List Reviewed: Yes Assessment & Plan - Problems (Diagnosis) (1) Acute UTI Current Visit: Yes Status: Acute (2) Sepsis Current Visit: Yes Status: Acute (3) Elevated procalcitonin Current Visit: Yes Status: Acute (4) History of COPD Current Visit: Yes Status: Acute (5) History of hiatal hernia Current Visit: Yes Status: Acute (6) Fever Current Visit: Yes Status: Acute (7) Leukopenia Current Visit: Yes Status: Acute (8) Coronary artery disease Current Visit: Yes Status: Acute - Plan Continue with current plan of care as mentioned below 1. Continue with IV hydration 2. Continue with IV antibiotics 3. Continue with pain control 4. Ruled out for COVID pneumonia 5. Renal ultrasound unremarkable; echocardiogram pending 6. Serial H&H, and we will monitor CBC, BMP, LFTs and lipase along with elect rolytes. Labs are improving 7. Monitor white blood cell count closely. White count is stable 8. GI and DVT prophylaxis Discharge Plan: Home Plan to discharge in: Greater than 2 days - Advance Directives Does patient have a Living Will: No Does patient have a Durable POA for Healthcare: No - Code Status/Comfort Care Code Status: Full Code Critical Care: No Time Spent Managing PTS Care (In Minutes): 30
[2020-02-05] MEDS: PANTOPRAZOLE 40MG TABLET PO SCH ×2 (05:54→17:40)
[2020-02-05 06:04] LABS: Absolute Lymphocytes (CBC) 0.7 K/uL (0.7-4.9); Basophils % 0.2 % (0-1.3); Hematocrit 31.4 % (39.6-49.0); Lymphocytes % 9.4 % (15.3-44.8); MPV 8.9 fL (7.6-11.3)
[2020-02-05 08:22] LABS: Magnesium 2.5 mg/dL (1.8-2.4); Phosphorus 2.4 mg/dL (2.5-4.9); Potassium 4.3 mmol/L (3.5-5.1); Troponin I 0.04 ng/mL (0.0-0.045)
[2020-02-05] MEDS: CEFTRIAXONE/SWI 1gm 1 GM/10 ML SYR IVP SCH ×2 (09:00→21:31)
[2020-02-05 10:32] LABS: C-Reactive Protein 99.1 mg/L (<3.00)
[2020-02-05 12:08] VITALS: O2SAT 97
--- NOTE | 2020-02-05 12:25 | CON ---
Date of Consultation: 02/05/2020 Reason For Consultation: Elevated troponin and shortness of breath along with sepsis and UTI. History Of Present Illness: Mr. Leon is a 64-year-old white male, has a history of hypertension, dy slipidemia, anemia, and COPD. He has had a heart catheterization [address] Trivedi and he fou nd what appeared to be a small blockage in a small vessel on the backside of the heart, "reports are not available to me." He came in with shortness of breath. He said this happened to him every time he gets an infection. This happened to him almost a year ago, exactly the same scenario at that time he had other UTI. He comes in today with UTI, sepsis, elevated procalcitonin of 57.6. His creatini ne was 1.63. His glucose was 153. His troponin was 0.1 and then 0.06. He is asymptomatic now. He does not have any chest pain, nausea, vomiting, diaphoresis, PND, orthopnea, pedal edema, palpitation , or syncope. Allergies: MORPHINE. Review of Systems: Negative. Social History: Negative. Family History: Noncontributory. Medications: At home include: 1.Norvasc. 2.Plavix. 3.Zestril. 4.Metoprolol. 5.Crestor. Physical Examination: General: He weighed 279 pounds. Vital Signs: Stable, afebrile, in sinus rhythm. HEENT: Negative. Neck: Supple with no bruit. Chest: Clear. Cardiac: Revealed a regular rhythm and rate. No murmurs, gallops, or rubs. Abdomen: Benign. Extremities: Revealed no clubbing, cyanosis, or edema. Diagnostic Data: As stated earlier. EKG is unremarkable. Chest x-ray is unremarkable. Impression And Plan: 1.Elevated troponin secondary to sepsis. His pattern is not consistent with an acute coronary syndr ome. He apparently has some coronary artery disease. Dr. Trivedi decided to treat medically. He has an echocardiogram pending to rule out congestive heart failure. I agree with that. When he goes taryn e, he will follow up with Dr. Trivedi in the near future. I certainly do not plan to have to do any he art catheterization on him right now. His other problems including hypertension, dyslipidemia, anemi a, and chronic obstructive pulmonary disease all those are stable. He does have some renal insuffici ency that needs to be followed and he has some hyperglycemia issues that he may have to be followed f or as well. From my standpoint, he can go home whenever it is okay with Dr. Anderson. SUSU/BERKLEY Voice ID: [id number] Report ID: [id number]
--- NOTE | 2020-02-06 05:52 | P.DS ---
Discharge Date: 02/06/20 Disposition: ROUTINE DISCHARGE Discharge Condition: GOOD Reason for Admission: FEVER; DYSURIA Consultations: Cardiology - Problems (1) Acute UTI Current Visit: Yes Status: Acute (2) Sepsis Current Visit: Yes Status: Acute (3) Elevated procalcitonin Current Visit: Yes Status: Acute (4) History of COPD Current Visit: Yes Status: Acute (5) History of hiatal hernia Current Visit: Yes Status: Acute (6) Fever Current Visit: Yes Status: Acute (7) Leukopenia Current Visit: Yes Status: Acute (8) Coronary artery disease Current Visit: Yes Status: Acute Brief History of Present Illness: PATIENT IS A 64-YEAR-OLD GENTLEMAN CAME TO THE HOSPITAL WITH FEVER AND DYSURIA. PATIENT'S SYMPTOMS WERE VERY PAINFUL ANY CAME INTO THE HOSPITAL FOR FURTHER EVALUATION. IN THE EMERGENCY ROOM, PATIENT'S SYMPTOMS WERE EVALUATED. BECAUSE HIS FEVER THEY WANTED TO RULE HIM OUT FOR COVID PNEUMONIA. HE ALSO HAS A HISTORY OF COPD. PATIENT ALSO HAS A LARGE HIATAL HERNIA THAT MUST BEEN REPAIRED IN THE PAST. AT THIS TIME, HE WILL BE TREATED FOR SEVERE URINARY TRACT INFECTION WITH SEPSIS. Hospital Course: AT THIS TIME, PATIENT IS DOING MUCH BETTER. URINARY TRACT IS STABLE. 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 PATIENT WILL ALSO NEED TO FOLLOW WITH UROLOGY FOR HIS ELEVATED PSA WHICH COULD BE RELATED TO PROSTATITIS. PATIENT STABLE FOR DISCHARGE HOME AT THIS TIME. Vital Signs/Physical Exam: Temp Pulse Resp BP Pulse Ox 96.9 F 66 23 H 124/61 96 02/06/20 05:47 02/06/20 05:47 02/06/20 05:47 02/06/20 05:47 02/06/20 05:47 General: Alert, In no apparent distress, Oriented x3 Laboratory Data at Discharge: WBC 7.0 K/uL (4.3-10.9) D 02/05/20 05:43 Hgb 11.0 g/dL (13.6-17.9) L 02/05/20 05:43 Hct 31.4 % (39.6-49.0) L 02/05/20 05:43 Plt Count 138 K/uL (152-406) L 02/05/20 05:43 PT 13.8 SECONDS (9.5-12.5) H 02/03/20 20:35 INR 1.17 02/03/20 20:35 APTT 28.9 SECONDS (24.3-36.9) 02/03/20 20:35 Sodium 142 mmol/L (136-145) 02/05/20 05:43 Potassium 4.3 mmol/L (3.5-5.1) 02/05/20 05:43 BUN 21 mg/dL (7-18) H 02/05/20 05:43 Creatinine 1.12 mg/dL (0.55-1.3) 02/05/20 05:43 Glucose 264 mg/dL (74-106) H 02/05/20 05:43 Phosphorus 2.4 mg/dL (2.5-4.9) L 02/05/20 05:43 Magnesium 2.5 mg/dL (1.8-2.4) H 02/05/20 05:43 Total Bilirubin 1.1 mg/dL (0.2-1.0) H 02/03/20 20:35 AST 74 U/L (15-37) H 02/03/20 20:35 ALT 65 U/L (12-78) 02/03/20 20:35 Alkaline Phosphatase 61 U/L (45-117) 02/03/20 20:35 Troponin I 0.04 ng/mL (0.0-0.045) 02/05/20 05:43 Lipase 100 U/L (73-393) 02/03/20 20:35 Home Medications: Cetirizine HCl [Zyrtec*] 10 mg PO DAILY 06/30/14 Amlodipine [Norvasc*] 10 mg PO DAILY 02/04/20 Clopidogrel Bisulfate [Plavix*] 75 mg PO DAILY 02/04/20 Ferrous Sulfate [Iron] 325 mg PO DAILY 02/04/20 Lisinopril [Zestril] 10 mg PO BID 02/04/20 Metoprolol Succinate [Toprol Xl*] 12.5 mg PO BID 02/04/20 Rosuvastatin Calcium [Crestor] 20 mg PO BEDTIME 02/04/20 Levofloxacin [Levaquin] 500 mg PO DAILY #10 tablet 02/06/20 New Medications: Levofloxacin [Levaquin] 500 mg PO DAILY #10 tablet Patient Discharge Instructions: OK TO DC IV AND DC HOME. FOLLOW-UP WITH PRIMARY CARE PROVIDER IN 1-2 WEEKS. FOLLOW-UP WITH CARDIOLOGY AND UROLOGY IN 1-2 WEEKS. RETURN TO THE ER IF SYMPTOMS WORSEN. CALL or TEXT DR. ALEJO AT [phone] IF ANY QUESTIONS REGARDING HOSPITAL STAY. PLEASE CALL THE FLOOR AT [phone] IF ANY MEDICATION OR NURSING QUESTIONS. Diet: AHA Activity: Fall precautions Time spent managing pt's care (in minutes): 25
[2020-02-06] MEDS: PANTOPRAZOLE 40MG TABLET PO SCH (06:00)
[2020-02-06] MEDS: CEFTRIAXONE/SWI 1gm 1 GM/10 ML SYR IVP SCH (08:41)
[2020-02-06 09:58] VITALS: BP 113/58; TEMP 97
== END 2020-02-06 11:17 | disposition home or self-care (01) | DRG 872 ==
LOC: ER 22:07 → 4TH 02-04 02:29 → 2ND 02-04 16:19
PROVIDERS: ADMIT Hospitalist; ATTEND Hospitalist
PROC: 8E0ZXY6 Isolation (ICD-10-PCS; principal; 2020-02-04)
DX: A41.9 Sepsis, unspecified organism (principal); N39.0 Urinary tract infection, site not specified; I10 Essential (primary) hypertension; J44.9 Chronic obstructive pulmonary disease, unspecified; I25.10 Atherosclerotic heart disease of native coronary artery without angina pectoris; N41.9 Inflammatory disease of prostate, unspecified; B96.89 Other specified bacterial agents as the cause of diseases classified elsewhere; D72.819 Decreased white blood cell count, unspecified; R97.20 Elevated prostate specific antigen [PSA]; R79.89 Other specified abnormal findings of blood chemistry; R65.20 Severe sepsis without septic shock; R50.9 Fever, unspecified; R05 Cough; Z20.828 Contact with and (suspected) exposure to other viral communicable diseases; Z79.891 Long term (current) use of opiate analgesic; Z79.52 Long term (current) use of systemic steroids; Z79.899 Other long term (current) drug therapy; Z87.891 Personal history of nicotine dependence
CPT/HCPCS: 36415; 71045; 80048; 80076; 81003; 81015; 82550; 82947; 83605; 83690; 83735; 83880; 84100; 84145; 84153; 84484; 85025; 85384; 85610; 85730; 86140; 87040; 87077; 87086; 87088; 87186; 93005; 96365; 96375; 99285; J0696; J1100; J2930; J7030; U0002

== ENCOUNTER 2021-10-16 15:46 | Emergency (ER) | payer OTHER ==
--- OUTSIDE RECORDS SUMMARY | 2021-10-16 15:49 | XMS REPORT | Continuity of Care Document ---
:1955 Author Organization [facility] t Address [address] [place] [address] Dr. Larson [address] [place] [id number] Care Team Providers Name Role Phone Jonah Higgins [facility] Primary Care Physic kori Doctor Unassigned, Name Attending Clinician Unavailable Duglas FERREIRA, K.H. Attending Clinician SARAH Attending Clinician Unavailable AUBREE Attending Clinician Unavailable AUBREE Admitting Clinician Unavailable Payers Payer Name Policy Type Policy Number Effective Date Expiration Date S ource Problems Condition Condition Condition Status Onset Resolution Last Treating Co mments Source Name Details Category Date Date Treatment Clinician Date No known No known Disease Unive rs active active ity of problems problems [facility] [place] [facility] Allergies, Adverse Reactions, Alerts Allergy Allergy Status Severity Reaction(s) Onset Inactive Treating Comm ents Source Name Type Date Date Clinician Aspirin Propensi Active Other - See GI issues Univers ty to comments 1-12 ity of adverse 00:00: [place] reaction 00 Medical s Branch Social History Social Habit Start Date Stop Date Quantity Comments Source Exposure to Not sure [facility] SARS-CoV-2 (event) Medica l Branch Tobacco use and 2021-08-28 2021-08-28 [facility] exposure 00:00:00 00:00:00 Medical Branch Sex [birth year] [facility] 00:00:00 00:00:00 Medical Branch Smoking Status Start Date Stop Date Source Former smoker 2021-08-28 00:00:00 2021-08-28 00:00:00 [facility] Medications Ordered Filled Start Stop Current Ordering Indication Dosage Frequency Signature Comments Components Source Medication Medication Date Date Medication? Clinician (SIG) Name Name icosapent Yes [id number] 2g Take 2 U nivers ethyL 2-18 capsules ity of (VASCEPA) 1 00:00: by mouth 2 [place] gram 00 (two) Medical capsule times Branch daily. icosapent Yes [id number] 2g Take 2 U nivers ethyL 2-18 capsules ity of (VASCEPA) 1 00:00: by mouth 2 [place] gram 00 (two) Medical capsule times Branch daily. rosuvastati Yes [id number] 10mg Take 1 Univers n 10 mg 2-15 tablet by ity of tablet 00:00: mouth at [place] 00 bedtime. Medical Branch rosuvastati Yes [id number] 10mg Take 1 Univers n 10 mg 2-15 tablet by ity of tablet 00:00: mouth at [place] 00 bedtime. Medical Branch icosapent 2021- No [id number] 2g Take 2 Univers ethyL 2-15 02-18 capsules ity of (VASCEPA) 1 00:00: 00:00 by mouth 2 [place] gram 00 :00 (two) Medical capsule times Branch daily. fenofibrate Yes 134mg Take 134 U nivers micronized 2-09 mg by ity of 134 mg 13:15: mouth [place] capsule 23 daily. Medical Branch ferrous Yes 325mg Take 325 Unive rs sulfate 325 2-09 mg by ity of mg (65 mg 13:15: mouth [place] iron) 23 daily. Medical tablet Branch cetirizine Yes 10mg Take 10 mg U nivers (ZYRTEC) 10 2-09 by mouth ity of mg tablet 13:15: daily. [place] [address] Medical Branch Garlic Yes Take by Univers 1,000 mg 2-09 mouth ity of Cap 13:15: daily. [place] [address] Medical Branch vitamin C Yes 1000mg Take 1,000 Univers with zoë 2-09 mg by ity of hips 13:15: mouth [place] (VITAMIN C) 23 daily. Medica l 1,000 mg Branch tablet mv-mn/iron/ 2022-0 Yes Take by Un meliton folic 2-09 mouth ity of acid/herb 13:15: daily. [place] 190 23 Medical (VITAMIN D3 Branch COMPLETE ORAL) Cocoa-3-DHA 0 Yes 2000mg Take 2,000 Univers -EPA-Fish 2-09 mg by ity of Oil (FISH 13:15: mouth [place] OIL) 1,000 23 daily. Medical mg (120 Branch mg-180 mg) Cap FLAXSEED 0 Yes 1200mg Take 1,200 U nivers OIL ORAL 2-09 mg by ity of 13:15: mouth [place] 23 daily. Medical Branch fenofibrate 0 Yes 134mg Take 134 U nivers micronized 2-09 mg by ity of 134 mg 13:15: mouth [place] capsule 23 daily. Medical Branch ferrous 0 Yes 325mg Take 325 Unive rs sulfate 325 2-09 mg by ity of mg (65 mg 13:15: mouth [place] iron) 23 daily. Medical tablet Branch cetirizine 0 Yes 10mg Take 10 mg U nivers (ZYRTEC) 10 2-09 by mouth ity of mg tablet 13:15: daily. [place] 23 Medical Branch Garlic 0 Yes Take by Univers 1,000 mg 2-09 mouth ity of Cap 13:15: daily. [place] 23 Medical Branch vitamin C 0 Yes 1000mg Take 1,000 Univers with zoë 2-09 mg by ity of hips 13:15: mouth [place] (VITAMIN C) 23 daily. Medica l 1,000 mg Branch tablet mv-mn/iron/ Yes Take by Un meliton folic 2-09 mouth ity of acid/herb 13:15: daily. [place] 190 23 Medical (VITAMIN D3 Branch COMPLETE ORAL) Cocoa-3-DHA 0 Yes 2000mg Take 2,000 Univers -EPA-Fish 2-09 mg by ity of Oil (FISH 13:15: mouth [place] OIL) 1,000 23 daily. Medical mg (120 Branch mg-180 mg) Cap FLAXSEED 0 Yes 1200mg Take 1,200 U nivers OIL ORAL 2-09 mg by ity of 13:15: mouth [place] 23 daily. Medical Branch fenofibrate 0 Yes 134mg Take 134 U nivers micronized 2-09 mg by ity of 134 mg 13:15: mouth [place] capsule 23 daily. Medical Branch ferrous Yes 325mg Take 325 Unive rs sulfate 325 2-09 mg by ity of mg (65 mg 13:15: mouth [place] iron) 23 daily. Medical tablet Branch cetirizine Yes 10mg Take 10 mg U nivers (ZYRTEC) 10 2-09 by mouth ity of mg tablet 13:15: daily. 23 Medical Branch Garlic Yes Take by Univers 1,000 mg 2-09 mouth ity of Cap 13:15: daily. 23 Medical Branch vitamin C Yes 1000mg Take 1,000 Univers with zoë 2-09 mg by ity of hips 13:15: mouth [place] (VITAMIN C) 23 daily. Medica l 1,000 mg Branch tablet mv-mn/iron/ Yes Take by Un meliton folic 2-09 mouth ity of acid/herb 13:15: daily. [place] 190 23 Medical (VITAMIN D3 Branch COMPLETE ORAL) Cocoa-3-DHA Yes 2000mg Take 2,000 Univers -EPA-Fish 2-09 mg by ity of Oil (FISH 13:15: mouth [place] OIL) 1,000 23 daily. Medical mg (120 Branch mg-180 mg) Cap FLAXSEED Yes 1200mg Take 1,200 U nivers OIL ORAL 2-09 mg by ity of 13:15: mouth [place] 23 daily. Medical Branch metoprolol Yes 12.5mg Take 0.5 U nivers succinate 2-09 tablets by ity of XL 25 mg 24 00:00: mouth [place] hr tablet 00 daily. Medical Branch lisinopriL Yes [id number] 30mg Take 1 U nivers 30 mg 2-09 tablet by ity of tablet 00:00: mouth [place] 00 daily. Medical Branch clopidogreL Yes [id number] 75mg Take 1 Univers 75 mg 2-09 tablet by ity of tablet 00:00: mouth [place] 00 daily. Medical Branch metoprolol Yes 12.5mg Take 0.5 U nivers succinate 2-09 tablets by ity of XL 25 mg 24 00:00: mouth [place] hr tablet 00 daily. Medical Branch lisinopriL Yes [id number] 30mg Take 1 U nivers 30 mg 2-09 tablet by ity of tablet 00:00: mouth [place] 00 daily. Medical Branch clopidogreL Yes [id number] 75mg Take 1 Univers 75 mg 2-09 tablet by ity of tablet 00:00: mouth [place] 00 daily. Medical Branch metoprolol Yes 12.5mg Take 0.5 U nivers succinate 2-09 tablets by ity of XL 25 mg 24 00:00: mouth [place] hr tablet 00 daily. Medical Branch lisinopriL Yes [id number] 30mg Take 1 U nivers 30 mg 2-09 tablet by ity of tablet 00:00: mouth [place] 00 daily. Medical Branch clopidogreL Yes [id number] 75mg Take 1 Univers 75 mg 2-09 tablet by ity of tablet 00:00: mouth [place] 00 daily. Medical Branch amLODIPine 2021- Yes [id number] 10mg Take 1 Univers 10 mg 2-09 05-11 tablet by ity of tablet 00:00: 04:59 mouth [place] 00 :00 daily for Medical 90 days. Branch amLODIPine 2021- Yes [id number] 10mg Take 1 Univers 10 mg 2-09 05-11 tablet by ity of tablet 00:00: 04:59 mouth [place] 00 :00 daily for Medical 90 days. Branch amLODIPine 2021- Yes [id number] 10mg Take 1 Univers 10 mg 2-09 05-11 tablet by ity of tablet 00:00: 04:59 mouth [place] 00 :00 daily for Medical 90 days. Branch Procedures Procedure Date / Time Performing Clinician Source Performed DME/SUPPLY JUSTIFICATION 2021-09-27 06:01:00 Doctor Unassigned, No [facility] Name Medical Branch AUTHORIZATION TO RELEASE 2021-08-28 06:01:00 Doctor Unassigned, No [facility] TO [facility] Name Medical Branch Encounters Start End Encounter Admission Attending Care Care Encounter Source Date/Time Date/Time Type Type Clinicians Facility Department ID 2021-09-27 2021-09-27 Orders Doctor MANCIA [id number] Univers 00:00:00 00:00:00 Only Unassigned, ZACK [id number] ity of [place] [facility] [id number] Patrice as [phone] [facility] [address] [place] 2021-09-04 2021-09-04 Telephone Duglas SDSANTIAGO [id number] [facility] 00:00:00 00:00:00 Sendnicolas KyleKevMichaelKev CAMACHO [id number] ity of [place] [id number] [place] [id number] Ut dical NAL 0[address] [facility] 2021-08-28 2021-08-28 Orders Doctor BLANCHE [id number] [facility] 00:00:00 00:00:00 Only Unassigned, ZACK [id number] ity of [place] [facility] [id number] Patrice as [phone] [address] 2020-10-04 2020-10-04 Outpatient SARAH, [facility] [id number] [place] 00:00:00 00:00:00 CHACE 258 [facility] 2020-09-13 2020-09-13 Outpatient [facility] [id number] [place] 00:00:00 00:00:[address] 2019-06-06 2019-06-09 Inpatient AUBREE, [facility] [id number] [place] 00:00:00 00:00:[address] Results Test Description Test Time Test Comments Results Result Comments Source SARS-CoV-2 (COVID-19), RT-PCR/TMA 2021-07-30 09:36:57 Test Item Value Reference Range Interpretation Comme nts SARS-CoV-2 INTERPRETATION NEGATIVE SEE NOTE S ARS-CoV-2 RNA NOT (test code = 20100) DETECTED Negative results do not preclude SARS-C oV-2 infection and should notb e used as the sole basis for patient management deci sions. Negativeresults must be combined with clinical o bservations, patient history ,and epidemiological information. Optimum specime n types and timingfor peak viral levels during infectio ns caused by SARS-CoV-2 have notbeen determined. Col lection of multiple specim ens or types ofspecimens may be necessary to detect virus. I mproper specimencollect ion and handling, sequence variab ility under primers/probes, or organism present below t he limit of detection may l ead to falsenegative r esults. Positive and negative pr edictive values oftesting are h ighly dependent on prevalence. False negative testresults are more likely when prevalence is h igh. SOURCE (test code = 72839) NASOPHARYNGEAL Note: Methodology is Lv Oxana Real-Time RT-PCR. The expected r esult or reference range is NEGATIVE (Not Detected). For more information regarding COVID -19 testing to include clinica linformation, methodology det ail, intended use, FDA author ization andrecommended fact sheets for patients or a [facility] providers, see Protection Plus Announcement: S ARS-CoV-2 (COVID-19) by N AAT at URL below (note,fact shee ts are provided by method given in report:https:// www.[employer]/c linicians/hao t-communications/ Alternatively, see downloadable PDF fact sheet at:https://www. [employer]/COVID -19-RT-PCR UNLESS OTHERWISE INDIC ATED, ALL TESTING PERFORMED [facility] PATH[facility] [place] [address] LABORATORY DIRE CTOR: AYANA PHAN M.D. CLIA NUMBER [id number] [place]. [id number] SARS-COV2/RT-PCR ([facility])2020-02-04 13:29:00 Test Item Value Reference Range Interpretation Comments SARS-COV2/RT-PCR (test code = Negative Not Detected, Negative [id number]) SARS-COV-[address] [facility] (test code = 1309362) Negative result for this test determines that SARS-CoV-2 RNA was not present in the specimen above the Limit of Detection (LOD). However, Negative results do not preclude SARS-CoV-2 infection and should not be used as the sole basis for treatment or patient management decisions. Negative results mustbe combined with clinical observations, patient history, and epidemiological information. A false negative result may occur if a specimen is improperly collected, transported or handled. A false negative result should be considered if patient's recent exposures or clinical presentation indicate that COVID-19 (SARS-CoV-2) is likely and diagnostic tests for other causes of illness are negative. Re-testing should be considered in cases of suspected false negatives.The limit of detection for this assay is 800 copies/mL.This SARS CoV-2 test is a real-time RT-PCR test intended for the qualitative detection of nucleic acid from SARS-CoV-2 in a nasopharyngeal swab specimen collected from individuals susp ected of COVID-19 by their healthcare provider.This test has not been Food and Drug Administration (FDA) cleared or approved. This is a modified version of an approved Emergency Use Authorization (EUA) and is in the process of review by the FDA. Once authorized by the FDA, the issued EUA will be effective until the declaration that circumstances exist justifying the authorization of the emergency use of in vitro diagnostic tests for detection and/or diagnosis of COVID-19 is terminated under Section 564(b)(2) of the Act or the EUA is revoked under Section 564(g) of the Act.Fact Sheet for Healthcare Providers:https://www.[employer]/sites/default/files/product/documents/Fact_Shee e_ON_Dastwjqho_Jxow_XESM-ZiC-5.pdfFact Sheet for Healthcare Patients:https://www.[employer].com/sites/default/files/product/ documents/Pazc_Wcnjn_Zigsirwi_Mmqh_HQPU-TwC-1.pdfPerforming Laboratory:[facility] [place] [address]
[2021-10-16] MEDS ORDERED: KETOROLAC 30 MG/ML INJ ONE (16:09)
[2021-10-16] MEDS ORDERED: ONDANSETRON 4 MG/2 ML VIAL ONE (16:10)
[2021-10-16 16:14] LABS: Absolute Lymphocytes (CBC) 0.8 K/uL (0.7-4.9); Hematocrit 37.3 % (39.6-49.0); Lymphocytes % 11.7 % (15.3-44.8); MPV 8.3 fL (7.6-11.3); RBC Red Blood Cell Count 4.01 M/uL (4.33-5.43)
[2021-10-16 16:24] LABS: Urine Blood 3+ (Negative); Urine Glucose 2+ (Negative); Urine Protein 2+ (Negative); Urine Specific Gravity >=1.030 (1.005-1.030); Urine pH 5.5 (5.0-7.0)
[2021-10-16 16:28] LABS: Potassium 4.3 mmol/L (3.5-5.1)
[2021-10-16 16:47] LABS: Urine Bacteria <20 /HPF (NONE SEEN); Urine RBC 20-50 /HPF (NONE SEEN)
--- NOTE | 2021-10-16 16:50 | RAD REPORT ---
EXAM DESCRIPTION: CT - Stone Protocol - 10/16/2021 4:37 pm CLINICAL HISTORY: Abdominal pain. Left flank pain COMPARISON: 2013 TECHNIQUE: Computed axial tomography of the abdomen pelvis was obtained without oral or IV contrast. Lack of IV and oral contrast limits evaluation of solid organs, bowel, and vessels. Coronal reformat deborah images were obtained and reviewed. All CT scans are performed using dose optimization technique as appropriate and may include automated exposure control or mA/KV adjustment according to patient size. FINDINGS: Bilateral renal calculi. Mild left hydronephrosis with perirenal stranding. A 6 millimeter calculus within the proximal left ureter. Several small calculi within the bladder. Fatty liver. The liver is enlarged. Spleen measures 13 centimeters The pancreas and adrenals unremarkable. Postsurgical changes diaphragmatic hernia repair Moderate to large left and moderate right inguinal hernias contain fat There is no evidence of diverticulitis. The appendix appears normal 14 millimeter calcification within the pelvis likely benign IMPRESSION: 6 millimeter calculus proximal left ureter resulting mild left hydronephrosis
--- NOTE | 2021-10-16 16:59 | ER ---
Nurse's Notes [facility] Name: Duke Leon Age: 66 yrs Sex: Male : 1955 Arrival Date: 10/16/2021 Time: 15:49 Bed 5 Private MD: Diagnosis: Hydronephrosis with renal and ureteral calculous obstruction Presentation: 10/16 15:50 Chief complaint: Patient states: Severe L groin pain started today. Denies fever, no ll1 N/V/D. Coronavirus screen: Vaccine status: Patient reports receiving the 2nd dose of the covid vaccine. Client denies travel out of the [place] in the last 14 days. At this time, the client does not indicate any symptoms associated with coronavirus-19. Ebola Screen: Patient denies travel to an Ebola-affected area in the 21 days before illness onset. Initial Sepsis Screen: Does the patient meet any 2 criteria? No. Patient's initial sepsis screen is negative. Does the patient have a suspected source of infection? Yes: Acute abdominal pain. Risk Assessment: Do you want to hurt yourself or someone else? Patient reports no desire to harm self or others. Onset of symptoms was October 16, 2021. 15:50 Acuity: NATALIE 3 ll1 15:50 Method Of Arrival: Wheelchair ll1 Triage Assessment: 15:51 General: Appears uncomfortable, Behavior is calm, cooperative, appropriate for age. ll1 Pain: Complains of pain in L groin Quality of pain is described as aching, throbbing. : Reports pain in left groin area. Historical: - Allergies: 15:50 Morphine; ll1 - PMHx: 15:50 COPD; Hypertension; Right eye prosthetic; ll1 - PSHx: 15:50 Unable to Obtain; ll1 - Immunization history:: Client reports receiving the 2nd dose of the Covid vaccine. - Social history:: Smoking status: Patient/guardian denies using tobacco, the patient reports quitting approximately 6 years ago. Screenin:57 Abuse screen: Denies threats or abuse. Nutritional screening: No deficits noted. jd3 Tuberculosis screening: No symptoms or risk factors identified. Fall Risk Ambulatory Aid- None/Bed Rest/Nurse Assist (0 pts). Gait- Normal/Bed Rest/Wheelchair (0 pts) Mental Status- Oriented to own ability (0 pts). Total Membreno Fall Scale indicates No Risk (0-24 pts). Assessment: 15:56 General: Appears in no apparent distress. uncomfortable, Behavior is calm, cooperative, jd3 appropriate for age. Pain: Complains of pain in groin Pain radiates to left flank Quality of pain is described as sharp, shooting. Neuro: Level of Consciousness is awake, alert, obeys commands, Oriented to person, place, time, situation. Cardiovascular: Denies chest pain, Capillary refill < 3 seconds Patient's skin is warm and dry. Respiratory: Airway is patent Respiratory effort is even, unlabored, Respiratory pattern is regular, symmetrical, Denies cough, shortness of breath. GI: Abdomen is round non-distended, Abd is soft X 4 quads Abdomen is tender to palpation in suprapubic area, right lower quadrant and left lower quadrant Patient currently denies constipation, diarrhea, nausea, vomiting. : Denies burning with urination, inability to void, incontinence, urinary frequency, urgency. EENT: No signs and/or symptoms were reported regarding the EENT system. Derm: Skin is intact, Skin is dry, Skin is normal, Skin temperature is warm. Musculoskeletal: Circulation, motion, and sensation intact. Range of motion: intact in all extremities. 16:59 Reassessment: Patient appears in no apparent distress at this time. Patient and/or jd3 family updated on plan of care and expected duration. Pain level reassessed. Patient is alert, oriented x 3, equal unlabored respirations, skin warm/dry/pink. 17:25 Reassessment: Patient appears in no apparent distress at this time. Patient and/or jd3 family updated on plan of care and expected duration. Pain level reassessed. Patient is alert, oriented x 3, equal unlabored respirations, skin warm/dry/pink. even and steady gait upon discharge. pt and family reporting understanding of discharge instructions. Patient denies pain at this time. Patient states feeling better. Vital Signs: 15:50 BP 154 / 74; Pulse 72; Resp 18; Temp 97.9; Pulse Ox 97% ; Weight 127.01 kg; Height 5 ll1 ft. 6 in. (167.64 cm); Pain 10/10; 16:59 BP 148 / 65; Pulse 63; Resp 18 S; Pulse Ox 98% on R/A; jd3 15:50 Body Mass Index 45.19 (127.01 kg, 167.64 cm) ll1 ED Course: 15:49 Patient arrived in ED. ll1 15:50 Wilson Campoverde RN is Primary Nurse. jd3 15:50 Ruben Arriaga PA is PHCP. jr8 15:50 Earl Garza DO is Attending Physician. jr8 15:50 Arm band placed on Patient placed in an exam room, on a stretcher. ll1 15:51 Triage completed. ll1 15:58 Patient has correct armband on for positive identification. Bed in low position. Call jd3 light in reach. Side rails up X2. Adult w/ patient. Pulse ox on. NIBP on. 16:04 Inserted saline lock: 20 gauge in right antecubital area, using aseptic technique. jd3 Blood collected. 16:38 CT Stone Protocol In Process Unspecified. EDMS 16:57 Alfonzo Kenyon MD is Referral Physician. jr8 17:25 No provider procedures requiring assistance completed. IV discontinued, intact, jd3 bleeding controlled, No redness/swelling at site. Pressure dressing applied. Administered Medications: 16:11 Drug: Ketorolac 15 mg Route: IVP; Site: right antecubital; jd3 17:00 Follow up: Response: No adverse reaction jd3 16:11 Drug: Zofran (Ondansetron) 4 mg Route: IVP; Site: right antecubital; jd3 17:00 Follow up: Response: No adverse reaction jd3 17:24 Drug: Flomax (tamsulosin) 0.4 mg Route: PO; jd3 17:24 Follow up: Response: Medication administered at discharge. jd3 17:24 Drug: Howells (HYDROcodone-acetaminophen) 10 mg-325 mg 1 tabs Route: PO; jd3 17:25 Follow up: Response: Medication administered at discharge. jd3 Outcome: 16:58 Discharge ordered by . jr8 17:25 Discharged to home ambulatory, with family. jd3 17:25 Condition: stable 17:25 Discharge instructions given to patient, family, Instructed on discharge instructions, follow up and referral plans. medication usage, Demonstrated understanding of instructions, follow-up care, medications, Prescriptions given X 4. 17:26 Patient left the ED. jd3 Signatures: Dispatcher [employer] [facility] Ruben Arriaga PA PA jr8 Wilson Campoverde RN RN jd3 Sarita Andrew RN RN ll1 Corrections: (The following items were deleted from the chart) 15:50 15:50 PSHx: None; ll1 ll1 17:26 17:25 Reassessment: Patient appears in no apparent distress at this time. Patient jd3 and/or family updated on plan of care and expected duration. Pain level reassessed. Patient is alert, oriented x 3, equal unlabored respirations, skin warm/dry/pink. Patient denies pain at this time. Patient states feeling better. jd3
--- NOTE | 2021-10-16 16:59 | EDPHYS ---
Physician Documentation [facility] Name: Duke Leon Age: 66 yrs Sex: Male : 1955 Arrival Date: 10/16/2021 Time: 15:49 Bed 5 Private MD: ED Physician Earl Garza HPI: 10/16 16:05 This 66 yrs old Male presents to ER via Wheelchair with complaints of Flank pain. jr8 16:05 The patient complains of pain in the left flank. The pain radiates to the abdomen and jr8 groin. Onset: The symptoms/episode began/occurred acutely, this morning, and became worse just prior to arrival. Modifying factors: The symptoms are alleviated by nothing. the symptoms are aggravated by nothing. Associated signs and symptoms: The patient has no apparent associated signs or symptoms. Severity of pain: At its worst the pain was moderate in the emergency department the pain is unchanged. The patient has not experienced similar symptoms in the past. The patient has not recently seen a physician. Historical: - Allergies: 15:50 Morphine; ll1 - PMHx: 15:50 COPD; Hypertension; Right eye prosthetic; ll1 - PSHx: 15:50 Unable to Obtain; ll1 - Immunization history:: Client reports receiving the 2nd dose of the Covid vaccine. - Social history:: Smoking status: Patient/guardian denies using tobacco, the patient reports quitting approximately 6 years ago. ROS: 16:05 Eyes: Negative for injury, pain, redness, and discharge, ENT: Negative for injury, jr8 pain, and discharge, Neck: Negative for injury, pain, and swelling, Cardiovascular: Negative for chest pain, palpitations, and edema, Respiratory: Negative for shortness of breath, cough, wheezing, and pleuritic chest pain, MS/Extremity: Negative for injury and deformity, Skin: Negative for injury, rash, and discoloration, Neuro: Negative for headache, weakness, numbness, tingling, and seizure. 16:05 Abdomen/GI: Positive for abdominal pain, Negative for nausea, vomiting, and diarrhea. 16:05 Back: Positive for flank pain, on the left. Exam: 16:05 Cardiovascular: Regular rate and rhythm with a normal S1 and S2. No gallops, murmurs, jr8 or rubs. Normal PMI, no JVD. No pulse deficits. Respiratory: Lungs have equal breath sounds bilaterally, clear to auscultation and percussion. No rales, rhonchi or wheezes noted. No increased work of breathing, no retractions or nasal flaring. Skin: Warm, dry with normal turgor. Normal color with no rashes, no lesions, and no evidence of cellulitis. MS/ Extremity: Pulses equal, no cyanosis. Neurovascular intact. Full, normal range of motion. Neuro: Awake and alert, GCS 15, oriented to person, place, time, and situation. Cranial nerves II-XII grossly intact. Motor strength 5/5 in all extremities. Sensory grossly intact. 16:05 Constitutional: The patient appears alert, awake, in obvious pain. 16:05 Abdomen/GI: Inspection: obese Bowel sounds: active, all quadrants, Palpation: soft, in all quadrants, mild abdominal tenderness, in the anterior aspect of left lateral abdomen and left lower quadrant, mass, is not appreciated, rebound tenderness, is not appreciated, voluntary guarding, is not appreciated, involuntary guarding, is not appreciated, no appreciated organomegaly, Indicators: McBurney's point is not tender, Seymour's sign is negative, Rovsing's sign is negative, Liver: tenderness, is not appreciated. 16:05 Back: pain, that is moderate, of the left flank, ROM is normal, painless, normal spinal alignment noted, CVA tenderness, that is moderate, is noted on the left, vertebral tenderness, is not appreciated. Vital Signs: 15:50 BP 154 / 74; Pulse 72; Resp 18; Temp 97.9; Pulse Ox 97% ; Weight 127.01 kg; Height 5 ll1 ft. 6 in. (167.64 cm); Pain 10/10; 16:59 BP 148 / 65; Pulse 63; Resp 18 S; Pulse Ox 98% on R/A; jd3 15:50 Body Mass Index 45.19 (127.01 kg, 167.64 cm) ll1 MDM: 15:50 Patient medically screened. jr8 16:54 Data reviewed: vital signs, nurses notes, lab test result(s), radiologic studies, CT jr8 scan. Data interpreted: Pulse oximetry: on room air is 97 %. Interpretation: normal. Counseling: I had a detailed discussion with the patient and/or guardian regarding: the historical points, exam findings, and any diagnostic results supporting the discharge/admit diagnosis, lab results, radiology results, the need for outpatient follow up, a urologist, to return to the emergency department if symptoms worsen or persist or if there are any questions or concerns that arise at home. ED course: Patient overall feeling much better. Pain controlled at this time. Has been able to urinate. Nontoxic or septic in appearance. Labs stable. No acute renal dysfunction. We will put him on tamsulosin along with nausea medicine and pain medicine. Needs to follow urology. Discussed with him any point time if he were to stop urinating, have fever, would not be able to hold down his meds to come back for further evaluation and admission or transfer. Patient good with this at this time.. 10/16 15:59 Order name: CBC with Diff; Complete Time: 16:19 8 10/16 15:59 Order name: Basic Metabolic Panel; Complete Time: 16:54 [facility] 10/16 15:59 Order name: CT Stone Protocol; Complete Time: 16:54 [facility] 10/16 16:02 Order name: Urine Microscopic Only; Complete Time: 16:54 8 10/16 16:25 Order name: Urine Dipstick-Ancillary; Complete Time: 16:54 EDMS 10/16 17:06 Order name: Urine Culture [facility] 10/16 15:59 Order name: IV; Complete Time: 16:04 8 10/16 16:02 Order name: Urine Dipstick-Ancillary (obtain specimen); Complete Time: 16:36 jr8 Administered Medications: 16:11 Drug: Ketorolac 15 mg Route: IVP; Site: right antecubital; jd3 17:00 Follow up: Response: No adverse reaction jd3 16:11 Drug: Zofran (Ondansetron) 4 mg Route: IVP; Site: right antecubital; jd3 17:00 Follow up: Response: No adverse reaction jd3 17:24 Drug: Flomax (tamsulosin) 0.4 mg Route: PO; jd3 17:24 Follow up: Response: Medication administered at discharge. jd3 17:24 Drug: Brawley (HYDROcodone-acetaminophen) 10 mg-325 mg 1 tabs Route: PO; jd3 17:25 Follow up: Response: Medication administered at discharge. jd3 Disposition: 10/17 13:47 Co-signature as Attending Physician, Earl Garza DO I was immediately available on-site ms3 in the Emergency Department for consultation in the care of the patient.. Disposition Summary: 10/16/21 16:58 Discharge Ordered Location: Home jr Problem: new jr8 Symptoms: have improved jr8 Condition: Stable jr8 Diagnosis - Hydronephrosis with renal and ureteral calculous obstruction jr8 Followup: jr8 - With: Alfonzo Kenyon MD - When: 5 - 6 days - Reason: Recheck today's complaints, Continuance of care, Re-evaluation by your physician Discharge Instructions: - Discharge Summary Sheet jr8 - Kidney Stones jr8 - Hydronephrosis jr8 Forms: - Medication Reconciliation Form jr8 - Thank You Letter jr8 - Antibiotic Education jr8 - Prescription Opioid Use jr8 Prescriptions: - tamsulosin 0.4 mg Oral capsule - take 1 capsule by ORAL route At bedtime; 20 capsule; Refills: 0, Product jr8 Selection Permitted - Zofran 4 mg Oral Tablet - take 1 tablet by ORAL route every 12 hours As needed; 20 tablet; Refills: 0, jr8 Product Selection Permitted - Ibuprofen 800 mg Oral Tablet - take 1 tablet by ORAL route every 12 hours As needed take with food; 20 tablet; jr8 Refills: 0, Product Selection Permitted - Tramadol 50 mg Oral Tablet - take 1 tablet by ORAL route every 8 hours as needed; 16 tablet; Refills: 0, jr8 Product Selection Permitted Signatures: Dispatcher [employer] EDMS Ruben Arriaga PA PA jr8 Wilson Campoverde RN RN jd3 Lewis, Lynsay, RN RN ll1 Earl Garza DO DO ms3 Corrections: (The following items were deleted from the chart) 10/16 15:50 15:50 PSHx: None; ll1 ll1
[2021-10-16] MEDS ORDERED: TAMSULOSIN 0.4 MG SR CAP ONE (17:18)
[2021-10-16] MEDS ORDERED: HYDROCODONE/APAP 10/325 TAB ONE (17:18)
[2021-10-16 18:09] VITALS: TEMP 97.9
[2021-10-16 18:10] VITALS: BP 148/65; O2SAT 98
== END 2021-10-16 17:26 | disposition home or self-care (01) ==
LOC: ER 15:46
DX: N13.2 Hydronephrosis with renal and ureteral calculous obstruction (principal); I10 Essential (primary) hypertension; J44.9 Chronic obstructive pulmonary disease, unspecified; Z88.5 Allergy status to narcotic agent
CPT/HCPCS: 87088; 85025; 87086; 80048; 36415; 76377; 74176; J2405; 81003; 81015

== ENCOUNTER 2021-10-19 17:42 | Emergency (ER) | payer OTHER ==
--- OUTSIDE RECORDS SUMMARY | 2021-10-19 17:45 | XMS REPORT | Continuity of Care Document ---
:1955 Author Organization [facility] t Address [address] [place] [address] Dr. Larson [address] [place] [id number] Care Team Providers Name Role Phone Jonah Higgins [facility] Primary Care Physic kori Doctor Unassigned, [...] rs active active ity of problems problems [facility] Allergies, Adverse Reactions, Alerts Allergy Allergy Status Severity Reaction(s) Onset Inactive Treating Comm ents Source Name Type Date Date Clinician Aspirin Propensi Active Other - See GI issues Univers ty to comments 1-12 ity of adverse 00:00: [place] reaction 00 Medical s Branch Social History Social Habit Start Date Stop Date Quantity Comments Source Exposure to Not sure [facility] SARS-CoV-2 (event) Medica l Branch Tobacco use and 2021-08-28 2021-08-28 Never used [facility] exposure 00:00:00 00:00:00 Medical Branch Sex [birth year] [facility] 00:00:00 00:00:00 Medical Branch Smoking Status Start Date Stop Date Source Former smoker 2021-08-28 00:00:00 2021-08-28 00:00:00 [facility] Medical Branch Medications Ordered Filled Start Stop Current Ordering Indication Dosage Frequency Signature Comments Components Source Medication Medication Date Date Medication? Clinician (SIG) Name Name icosapent Yes [id number] 2g Take 2 U nivers ethyL 2-18 capsules ity of (VASCEPA) 1 00:00: by mouth 2 [place] gram 00 (two) Medical capsule times Branch daily. icosapent Yes [id number] 2g Take 2 U nivers ethyL 2-18 capsules ity of (VASCEPA) 1 00:00: by mouth 2 [place] gram 00 (two) Medical capsule times Branch daily. rosuvastati Yes [id number] 10mg Take 1 Univers n 10 mg 2-15 tablet by ity of tablet 00:00: mouth at [place] 00 bedtime. Medical Branch rosuvastati Yes [id number] 10mg Take 1 Univers n 10 mg 2-15 tablet by ity of tablet 00:00: mouth at [place] 00 bedtime. Medical Branch icosapent 2021- No [id number] 2g Take 2 Univers ethyL 2-15 02-18 [...] mouth ity of mg tablet 13:15: daily. [place] [address] Medical Branch Garlic Yes Take by Univers 1,000 mg 2-09 mouth ity of Cap 13:15: daily. [place] [address] Medical Branch vitamin C Yes 1000mg Take 1,000 Univers with zoë 2-09 mg by ity of hips 13:15: mouth [place] (VITAMIN C) 23 daily. Medica l 1,000 mg Branch tablet mv-mn/iron/ 2022-0 Yes Take by Un meliton folic 2-09 mouth ity of acid/herb 13:15: daily. [place] 190 23 Medical (VITAMIN D3 Branch COMPLETE ORAL) [place]-3-DHA 0 Yes 2000mg Take 2,000 Univers -EPA-Fish [...] mouth ity of mg tablet 13:15: daily. [place] 23 Medical Branch Garlic 0 Yes Take by Univers 1,000 mg 2-09 mouth ity of Cap 13:15: daily. [place] 23 Medical Branch vitamin C 0 Yes 1000mg Take 1,000 Univers with zoë 2-09 mg by ity of hips 13:15: mouth [place] (VITAMIN C) 23 daily. Medica l 1,000 mg Branch tablet mv-mn/iron/ Yes Take by Un meliton folic 2-09 mouth ity of acid/herb 13:15: daily. [place] 190 23 Medical (VITAMIN D3 Branch COMPLETE ORAL) [place]-3-DHA 0 Yes 2000mg Take 2,000 Univers -EPA-Fish [...] 23 Medical (VITAMIN D3 Branch COMPLETE ORAL) [place]-3-DHA Yes 2000mg Take 2,000 Univers -EPA-Fish 2-09 [...] tablet 00 daily. Medical Branch lisinopriL Yes [id number] 30mg Take 1 U nivers 30 mg 2-09 tablet by ity of tablet 00:00: mouth [place] 00 daily. Medical Branch clopidogreL Yes [id number] 75mg Take 1 Univers 75 mg 2-09 tablet by ity of tablet 00:00: mouth [place] 00 daily. Medical Branch metoprolol Yes 12.5mg Take 0.5 U nivers succinate 2-09 tablets by ity of XL 25 mg 24 00:00: mouth [place] hr tablet 00 daily. Medical Branch lisinopriL Yes [id number] 30mg Take 1 U nivers 30 mg 2-09 tablet by ity of tablet 00:00: mouth [place] 00 daily. Medical Branch clopidogreL Yes [id number] 75mg Take 1 Univers 75 mg 2-09 tablet by ity of tablet 00:00: mouth [place] 00 daily. Medical Branch metoprolol Yes 12.5mg Take 0.5 U nivers succinate 2-09 tablets by ity of XL 25 mg 24 00:00: mouth [place] hr tablet 00 daily. Medical Branch lisinopriL Yes [id number] 30mg Take 1 U nivers 30 mg 2-09 tablet by ity of tablet 00:00: mouth [place] 00 daily. Medical Branch clopidogreL Yes [id number] 75mg Take 1 Univers 75 mg 2-09 tablet by ity of tablet 00:00: mouth [place] 00 daily. Medical Branch amLODIPine 2021- Yes [id number] 10mg Take 1 Univers 10 mg 2-09 05-11 tablet by ity of tablet 00:00: 04:59 mouth [place] 00 :00 daily for Medical 90 days. Branch amLODIPine 2021- Yes [id number] 10mg Take 1 Univers 10 mg 2-09 05-11 tablet by ity of tablet 00:00: 04:59 mouth [place] 00 :00 daily for Medical 90 days. Branch amLODIPine 2021- Yes [id number] 10mg Take 1 Univers 10 mg 2-09 05-11 tablet by ity of tablet 00:00: 04:59 mouth [place] 00 :00 daily for Medical 90 days. Branch Procedures Procedure Date / Time Performing Clinician Source Performed DME/SUPPLY JUSTIFICATION 2021-09-27 06:01:00 Doctor Unassigned, No [facility] Name Medical Branch AUTHORIZATION TO RELEASE 2021-08-28 06:01:00 Doctor Unassigned, No [facility] TO [facility] Name Medical Branch Encounters Start End Encounter Admission Attending Care Care Encounter Source Date/Time Date/Time Type Type Clinicians Facility Department ID 2021-09-27 2021-09-27 Orders Doctor MANCIA [id number] Univers 00:00:00 00:00:00 Only Unassigned, ZACK [id number] [place] [facility] [id number] Patrice as [phone] [facility] [address] [place] 2021-09-04 2021-09-04 Telephone D[place] NVSANTIAGO [id number] [facility] 00:00:00 00:00:00 Sendnicolas KyleKevMichaelKev CAMACHO [id number] ity of [place] [id number] [place] PROF[place] [phone] Or dical NAL 059 [facility] 2021-08-28 2021-08-28 Orders Doctor BLANCHE [id number] [facility] 00:00:00 00:00:00 Only Unassigned, ZACK [id number] [place] [facility] [id number] Patrice as [phone] [address] 2020-10-04 2020-10-04 Outpatient SARAH, [facility] [id number] [place] 00:00:00 00:00:00 CHACE [address] [facility] 2020-09-13 2020-09-13 Outpatient [facility] [id number] [place] 00:00:00 00:00:[address] 2019-06-06 2019-06-09 Inpatient AUBREE, [facility] [id number] [place] 00:00:00 00:00:00 [address] Results Test Description Test Time Test Comments Results Result Comments Source SARS-CoV-2 (COVID-19), RT-PCR/TMA 2021-07-30 09:36:57 Test Item Value Reference Range Interpretation Comme nts SARS-CoV-2 INTERPRETATION NEGATIVE SEE NOTE S ARS-CoV-2 RNA NOT (test code = 32383) DETECTED Negative results do not preclude SARS-C [...] is h igh. SOURCE (test code = 19210) NASOPHARYNGEAL Note: Methodology is Lv Oxana Real-Time RT-PCR. The expected r esult or reference range is NEGATIVE (Not Detected). For more information regarding COVID -19 testing to include clinica linformation, methodology det ail, intended use, FDA author ization andrecommended fact sheets for patients or [facility] providers, see [employer] Announcement: S ARS-CoV-2 (COVID-19) by N AAT at URL below (note,fact shee ts are provided by method given in report:https:// www.[employer]/c linicians/hao t-communications/ Alternatively, see downloadable PDF fact sheet at:https://www. [employer]/COVID -19-RT-PCR UNLESS OTHERWISE INDIC ATED, ALL TESTING PERFORMED [facility] PATHOLOGY [place] [address] LABORATORY DIRE CTOR: AYANA PHAN M.D. CLIA NUMBER [id number] [facility] [place]. [id number] SARS-COV2/RT-PCR ([facility])2020-02-04 13:29:00 Test Item Value Reference Range Interpretation Comments SARS-COV2/RT-PCR (test code = Negative Not Detected, Negative [id number]) SARS-COV-2 PERFORMING LAB [facility] (test code = 9711001) Negative result for this test determines that [...] 564(g) of the Act.Fact Sheet for Healthcare Providers:https://www.[employer].Widdle/sites/default/files/product/documents/Fact_Shee m_OU_Artgvwvrg_Enhh_GTSC-AuV-7.pdfFact Sheet for Healthcare Patients:https://www.[employer].com/sites/default/files/product/ documents/Fxjv_Wvmer_Nnnpkazd_Eowb_KCPD-GvB-4.pdfPerforming Laboratory:[facility] [place] [address]
[2021-10-19 18:05] LABS: Urine Blood Negative (Negative); Urine Glucose Negative (Negative); Urine Protein 2+ (Negative); Urine pH 5.5 (5.0-7.0)
[2021-10-19 18:18] LABS: Urine Bacteria <20 /HPF (NONE SEEN); Urine RBC <5 /HPF (NONE SEEN)
[2021-10-19 18:22] LABS: Absolute Lymphocytes (CBC) 0.4 K/uL (0.7-4.9); Lymphocytes % 5.9 % (15.3-44.8); MPV 8.4 fL (7.6-11.3); RBC Red Blood Cell Count 3.28 M/uL (4.33-5.43)
[2021-10-19 18:30] LABS: Potassium 4.3 mmol/L (3.5-5.1)
--- NOTE | 2021-10-19 18:31 | RAD REPORT ---
EXAM DESCRIPTION: CT - Stone Protocol - 10/19/2021 6:15 pm CLINICAL HISTORY: FLANK PAIN COMPARISON: <Comparisons> TECHNIQUE: Axial 3 mm thick images were obtained without oral or IV contrast. The [id number] span s the entirety of the system including uppermost abdomen and lung bases. All CT scans are performed using dose optimization technique as appropriate and may include automated exposure control or mA/KV adjustment according to patient size. FINDINGS: Mild left-sided hydronephrosis is still present. Previously detailed 6 mm obstructing mid left ureter calculus is still present with no measurable migration. There is stranding and edema gonzalez g the course of ureter. A 5 mm nonobstructing calculus is present in the lower pole the left kidney. No right-sided hydronephrosis. No suspicious renal masses. Isodense masses and pyelonephritis are not excluded on a stone protocol CT scan. No significant adrenal finding. Urinary bladder is contracted. Bladder calculi are present similar to the prior study. Significant hepatomegaly again noted with diffuse fatty infiltration. No new liver, spleen or pancrea s finding. No gallbladder or biliary tree abnormality identified. No suspicious bowel findings. No hernia, mass or bulky lymphadenopathy noted. No free air, free fluid or inflammatory stranding. No significant bony abnormality. IMPRESSION: Mild left-sided hydronephrosis is still present secondary to the 6 mm mid ureter obstruc ting calculus. No migration of the stone since 10/16/2021 imaging. Stranding along the course of the ureter has increased since the prior study. Isodense masses and pyelonephritis are not excluded on stone protocol technique. Remainder the study is unchanged.
--- NOTE | 2021-10-19 19:07 | RAD REPORT ---
EXAM DESCRIPTION: RAD - Chest Single View - 10/19/2021 6:56 pm CLINICAL HISTORY: DYSPNEA COMPARISON: Portable 02/03/2020 TECHNIQUE: AP portable chest image was obtained 10/19/2021 6:56 pm . FINDINGS: No peripheral mass consolidation. Interstitial markings are increased slightly from the pr ior study. Vasculature is slightly increased as well. Heart size is prominent but stable. No measurable pleural effusion and no pneumothorax. No acute bony abnormality seen. No acute aortic findings suspected. IMPRESSION: Vasculature and lung markings appear slightly increased from comparison. Correlation is needed with any mild failure or volume overload findings.
[2021-10-19] MEDS ORDERED: NA CHLORIDE 0.9% 100 ML IV ONE (19:53)
[2021-10-19] MEDS ORDERED: CEFTRIAXONE 1000 MG/VIAL ONE (19:53)
--- NOTE | 2021-10-19 19:53 | ER ---
Nurse's Notes [facility] Name: Duke Leon Age: 66 yrs Sex: Male : 1955 Arrival Date: 10/19/2021 Time: 17:44 Bed 15 Private MD: Diagnosis: Acute kidney failure, unspecified;Calculus of ureter-failed outpatient treatment Presentation: 10/19 17:54 Chief complaint: Patient states: nausea and fatigue since this morning. Denies pain at ld1 this time. Coronavirus screen: At this time, the client does not indicate any symptoms associated with coronavirus-19. Ebola Screen: No symptoms or risks identified at this time. Initial Sepsis Screen: Does the patient meet any 2 criteria? No. Patient's initial sepsis screen is negative. Does the patient have a suspected source of infection? No. Patient's initial sepsis screen is negative. Risk Assessment: Do you want to hurt yourself or someone else? Patient reports no desire to harm self or others. Onset of symptoms was October 19, 2021. 17:54 Method Of Arrival: Ambulatory ld1 17:54 Acuity: NATALIE 3 ld1 Triage Assessment: 17:55 General: Appears in no apparent distress. comfortable, Behavior is calm, cooperative, ld1 appropriate for age. Pain: Denies pain. EENT: No signs and/or symptoms were reported regarding the EENT system. Neuro: Level of Consciousness is awake, alert, obeys commands, Oriented to person, place, time, situation. Cardiovascular: Capillary refill < 3 seconds Patient's skin is warm and dry. Respiratory: Airway is patent Respiratory effort is even, unlabored. GI: Abdomen is round distended, Reports nausea. Historical: - PMHx: 17:55 COPD; Hypertension; Right eye prosthetic; Hypercholesterolemia; ld1 - PSHx: 17:55 None; ld1 - Immunization history:: Adult Immunizations up to date, Client reports receiving the 2nd dose of the Covid vaccine. - Social history:: Smoking status: Patient denies any tobacco usage or history of. Patient/guardian denies using alcohol. Screenin:00 Abuse screen: Denies threats or abuse. Nutritional screening: No deficits noted. jb4 Tuberculosis screening: No symptoms or risk factors identified. Fall Risk Secondary diagnosis (15 points) impaired mobility, IV access (20 points). Total Membreno Fall Scale indicates Low Risk Score (25-44 pts). Fall prevention measures have been instituted. Side Rails Up X 2 Placed close to Nursing Station Frequent Obs/Assesments occuring Family Present and informed to notify staff if they need to leave bedside As available Patient and Family Educated on Fall Prevention Program and strategies. Assessment: 18:00 General: Appears in no apparent distress. uncomfortable, Behavior is calm, cooperative, jb4 appropriate for age. Pain: Complains of pain in low back area. Neuro: Level of Consciousness is awake, alert, obeys commands, Oriented to person, place, time, situation. Cardiovascular: Patient's skin is warm and dry. Respiratory: Airway is patent Respiratory effort is even, unlabored. GI: Abdomen is round obese, Reports nausea. : : Reports pain in left flank(s). EENT: No signs and/or symptoms were reported regarding the EENT system. Derm: Skin is intact, Skin is pink, warm \T\ dry. Musculoskeletal: Circulation, motion, and sensation intact. Range of motion: intact in all extremities. 20:01 Reassessment: Patient appears in no apparent distress at this time. No changes from yordy previously documented assessment. The pt is resting comfortably and he is to be transferred. BC drawn and sent to lab. Rocephin being given. The pt reports that he is not allergic to Morphine, so it was removed from his chart as an allergy. Charge nurse assisted me in this. 20:44 Reassessment: I have attempted x 2, to call report to [facility], but was yordy disconnected. I am now on hold attempting to do the same. The pt agrees with the transfer. He remains in NAD. EMS has been called and we are awaiting them for transfer. 20:50 Reassessment: Report called to [facility] and awaiting EMS. yordy 21:15 Reassessment: Report given to EMS. yordy 10/20 09:47 Reassessment: FAXED positive preliminary blood culture reports to [facility]. ss Vital Signs: 10/19 17:54 BP 143 / 60; Pulse 72; Resp 20; Temp 99.3(O); Pulse Ox 97% on R/A; Weight 127.01 kg; ld1 Height 5 ft. 6 in. (167.64 cm); Pain 0/10; 19:59 BP 110 / 65; Pulse 58; Resp 18; Temp 99.8; Pulse Ox 97% on R/A; Pain 0/10; yordy 20:43 BP 110 / 65; Pulse 59; Resp 18; Temp 99.5; Pulse Ox 97% on R/A; Pain 0/10; yordy 17:54 Body Mass Index 45.19 (127.01 kg, 167.64 cm) ld1 ED Course: 17:44 Patient arrived in ED. am2 17:45 Jen Hunt FNP-C is PSYCHIATRICP. kb 17:45 Jamison Jacobson MD is Attending Physician. kb 17:55 Triage completed. ld1 17:55 Arm band placed on right wrist. ld1 18:00 Patient has correct armband on for positive identification. Bed in low position. Call jb4 light in reach. Side rails up X 1. Pulse ox on. NIBP on. 18:12 Inserted saline lock: 20 gauge in right antecubital area, using aseptic technique. ld1 Blood collected. 18:13 CBC with Diff Sent. ld1 18:13 Basic Metabolic Panel Sent. ld1 18:13 Lactate Sent. ld1 18:13 Procalcitonin Sent. ld1 18:17 CT Stone Protocol In Process Unspecified. EDMS 18:19 Matteo Ackerman, RN is Primary Nurse. jb4 18:58 Chest Single View XRAY In Process Unspecified. EDMS 19:30 Urine Culture Sent. yordy 19:54 Blood Culture Adult (2) Sent. yordy 20:01 No provider procedures requiring assistance completed. yordy 20:01 Blood Culture Adult (2) Sent. yordy 20:50 Patient transferred, IV remains in place. yordy Administered Medications: 20:01 Drug: Rocephin (cefTRIAXone) 1 grams Route: IV; Rate: calculated rate; Site: right yordy antecubital; 20:42 Follow up: IV Status: Completed infusion; IV Intake: 100ml yordy Intake: 20:42 IV: 100ml; Total: 100ml. yordy Outcome: 19:53 ER care complete, transfer ordered by . kb 20:03 Condition: stable yordy 20:03 Transferred by ground EMS to [facility]. yordy 21:29 Patient left the ED. yordy Addendum: 10/24/2021 08:21 Addendum: Culture Results: Positive urine culture. Positive blood culture. Phone call s s Attempt #1 Faxed culture report to [facility] ATTN: Catherine 16 tower. Signatures: Dispatcher [employer] EDJen Snyder, RIBBING MACHINE OPERATOR-C RIBBING MACHINE OPERATOR-Adriane Fish RN RN Matteo Ackerman RN RN [email or web address] Yumiko Estrada 2 Jaqueline Franklin RN RN ld1 Suze Andrew RN RN yordy Corrections: (The following items were deleted from the chart) 10/19 19:30 18:00 : elsa hunter 19:58 17:55 Allergies: Morphine; ld1 yordy
--- NOTE | 2021-10-19 19:53 | EDPHYS ---
Physician Documentation [facility] Name: Dkue Leon Age: 66 yrs Sex: Male : 1955 Arrival Date: 10/19/2021 Time: 17:44 Bed 15 Private MD: ED Physician Jamison Jacobson HPI: 10/19 18:12 This 66 yrs old Male presents to ER via Ambulatory with complaints of cold sweats, kb Nausea, Flank Pain - left. 18:12 Pt reports he has had fatigue, chills, nausea, shortness of breath, dull flank pain kb since yesterday. Was diagnosed with a kidney stone 3 days ago. came in today to make sure everything looked good because he has had sepsis in the past from a UTI. . Onset: The symptoms/episode began/occurred yesterday. Severity of symptoms: At their worst the symptoms were moderate in the emergency department the symptoms are unchanged. The patient has not experienced similar symptoms in the past. The patient has been recently seen at the [facility] Emergency Department. Historical: - PMHx: 17:55 COPD; Hypertension; Right eye prosthetic; Hypercholesterolemia; ld1 - PSHx: 17:55 None; ld1 - Immunization history:: Adult Immunizations up to date, Client reports receiving the 2nd dose of the Covid vaccine. - Social history:: Smoking status: Patient denies any tobacco usage or history of. Patient/guardian denies using alcohol. ROS: 18:11 Cardiovascular: Negative for chest pain, palpitations, and edema. kb 18:11 Constitutional: Positive for chills, fatigue, malaise. 18:11 Respiratory: Positive for shortness of breath. 18:11 Abdomen/GI: Positive for nausea. 18:11 All other systems are negative. Exam: 18:11 Constitutional: This is a well developed, well nourished patient who is awake, alert, kb and in no acute distress. Head/Face: Normocephalic, atraumatic. ENT: Moist Mucous membranes Cardiovascular: Regular rate and rhythm with a normal S1 and S2. No gallops, murmurs, or rubs. No pulse deficits. Abdomen/GI: Soft, non-tender. No distention Skin: Warm, dry with normal turgor. Normal color. MS/ Extremity: Pulses equal, no cyanosis. Neurovascular intact. Full, normal range of motion. Neuro: Awake and alert, GCS 15, oriented to person, place, time, and situation. Moves all extremities. Normal gait. 19:16 Respiratory: mild respiratory distress is noted, Respirations: labored breathing, that kb is mild, Breath sounds: are clear throughout. Vital Signs: 17:54 BP 143 / 60; Pulse 72; Resp 20; Temp 99.3(O); Pulse Ox 97% on R/A; Weight 127.01 kg; ld1 Height 5 ft. 6 in. (167.64 cm); Pain 0/10; 19:59 BP 110 / 65; Pulse 58; Resp 18; Temp 99.8; Pulse Ox 97% on R/A; Pain 0/10; yordy 20:43 BP 110 / 65; Pulse 59; Resp 18; Temp 99.5; Pulse Ox 97% on R/A; Pain 0/10; yordy 17:54 Body Mass Index 45.19 (127.01 kg, 167.64 cm) ld1 MDM: 17:45 Patient medically screened. kb 18:11 Data reviewed: vital signs, nurses notes. Data interpreted: Pulse oximetry: on room air kb is 97 %. Interpretation: normal. 19:34 Counseling: I had a detailed discussion with the patient and/or guardian regarding: the kb historical points, exam findings, and any diagnostic results supporting the discharge/admit diagnosis, lab results, radiology results, the need to transfer to another facility, [facility] does not immediately have the required specialist. ED course: Dr Patel, urologist at [facility], accepts pt for consult. Wants pt admitted to hospitalist. 19:51 ED course: Dr Seay, hospitalist at [facility], accepts pt for transfer. kb 10/19 17:51 Order name: CBC with Diff; Complete Time: 18:24 kb 10/19 17:51 Order name: Basic Metabolic Panel; Complete Time: 18:33 kb 10/19 17:51 Order name: Procalcitonin; Complete Time: 18:44 kb 10/19 17:51 Order name: Lactate; Complete Time: 18:33 kb 10/19 17:53 Order name: Urine Culture kb 10/19 17:53 Order name: Urine Microscopic Only; Complete Time: 18:22 kb 10/19 17:51 Order name: IV Start; Complete Time: 18:13 kb 10/19 17:51 Order name: CT Stone Protocol; Complete Time: 18:33 kb 10/19 17:51 Order name: Chest Single View XRAY; Complete Time: 19:16 kb 10/19 17:53 Order name: Urine Dipstick-Ancillary (obtain specimen); Complete Time: 18:06 kb 10/19 18:05 Order name: Urine Dipstick-Ancillary; Complete Time: 18:07 EDMS 10/19 18:39 Order name: COVID-19 SARS RT PCR (Document "Date of Onset" if Symptomatic); Complete kb Time: 19:36 10/19 18:43 Order name: Blood Culture Adult (2) rn Administered Medications: 20:01 Drug: Rocephin (cefTRIAXone) 1 grams Route: IV; Rate: calculated rate; Site: right yordy antecubital; 20:42 Follow up: IV Status: Completed infusion; IV Intake: 100ml yordy Disposition: 10/20 10:50 Co-signature as Attending Physician, Jamison Jacobson MD I agree with the assessment and rn plan of care. Attestation: The patient's history, exam findings, diagnostics, and a summary of any interventions or procedures was reviewed in detail with Jen LI. Disposition Summary: 10/19/21 19:53 Transfer Ordered Transfer Location: [facility] kb Reason: Higher level of care kb Condition: Stable kb Problem: new kb Symptoms: are unchanged kb Accepting Physician: Dr Seay(10/19/21 21:29) yordy Diagnosis - Acute kidney failure, unspecified kb - Calculus of ureter - failed outpatient treatment kb Forms: - Medication Reconciliation Form kb - SBAR form kb Signatures: Dispatcher [employer] Jen Hua FNP-C FNP-Jamison Bass MD MD rn Dibbern, Lauren, RN RN ld1 Suze Andrew RN RN yordy Corrections: (The following items were deleted from the chart) 10/19 19:17 18:11 Constitutional: This is a well developed, well nourished patient who is awake, kb alert, and in no acute distress. Head/Face: Normocephalic, atraumatic. ENT: Moist Mucous membranes Cardiovascular: Regular rate and rhythm with a normal S1 and S2. No gallops, murmurs, or rubs. No pulse deficits. Respiratory: Respirations even and unlabored. No increased work of breathing. Talking in full sentences Abdomen/GI: Soft, non-tender. No distention Skin: Warm, dry with normal turgor. Normal color. MS/ Extremity: Pulses equal, no cyanosis. Neurovascular intact. Full, normal range of motion. Neuro: Awake and alert, GCS 15, oriented to person, place, time, and situation. Moves all extremities. Normal gait. kb 19:58 17:55 Allergies: Morphine; ld1 yordy 21:29 19:53 Dr Seay kb yordy
[2021-10-19 21:38] VITALS: O2SAT 97
[2021-10-19 21:41] VITALS: BP 110/65
[2021-10-19 21:42] VITALS: TEMP 99.5
== END 2021-10-19 21:29 | disposition short-term general hospital (02) ==
LOC: ER 17:42
DX: N17.9 Acute kidney failure, unspecified (principal); N20.1 Calculus of ureter; I10 Essential (primary) hypertension; J44.9 Chronic obstructive pulmonary disease, unspecified; Z20.822 Contact with and (suspected) exposure to COVID-19
CPT/HCPCS: 96365; 87040 ×2; 87088; 85025; 87086; 80048; 36415; 87205 ×4; 83605; 87077 ×3; 87186 ×3; 84145; 76377; 74176; 71045; 99285; U0003; 81003; 81015